=== PATIENT | female | born 1970 | race Caucasian/White ===

== ENCOUNTER 2016-12-22 22:17 | Emergency (ER) | payer BC ==
[2016-12-22 22:33] VITALS: BP 148/66
[2016-12-23] MEDS ORDERED: Clindamycin CAP* 150 MG PO ONE (00:10)
--- NOTE | 2016-12-23 00:14 | ED ---
Laura Licea Alok, scribed for Alfie Gonzalez MD on 12/23/16 at 0010 . Lower Extremity - HPI Summary HPI Summary: 46F presents to the ED for left leg swelling/redness. Pt states that what began as swelling a few days ago progressed to erythema today in her left leg. Pt also states her left leg is hot to touch and notes a fever on and off since 4 days ago. Pt denies edema or erythema of the right leg. Pt denies recent injury or cuts. - History of Current Complaint Chief Complaint: EDExtremityLower Stated Complaint: LEFT LEG SWELLING/WARM Time Seen by Provider: 12/23/16 00:00 Hx Obtained From: Patient Hx Last Menstrual Period: 1 WEEK AGO Mechanism Of Injury: Unknown Onset/Duration: Days Severity Initially: Moderate Severity Currently: Moderate Pain Intensity: 0 Pain Scale Used: 0-10 Numeric Timing: Constant Location: Is Discrete @ - left leg Associated Signs And Symptoms: Positive: Swelling, Redness Aggravating Factor(s): Nothing Alleviating Factor(s): Nothing - Allergies/Home Medications Allergies/Adverse Reactions: Allergies Allergy/AdvReac Type Severity Reaction Status Date / Time Ciprofloxacin [From Cipro] Allergy Severe Hives Verified 08/30/15 08:17 Nitrofurantoin Allergy Severe Hives Verified 08/30/15 08:17 [From Macrobid] Penicillins Allergy Severe Hives Verified 08/30/15 08:17 Sulfa Drugs Allergy Severe Hives Verified 08/30/15 08:17 Bumetanide AdvReac Hives Verified 12/22/16 22:34 Hydrochlorothiazide AdvReac Hives Verified 12/22/16 22:34 Fallon Bees Body oil Allergy Hives Uncoded 08/30/15 08:17 Cheer detergent Allergy Hives Uncoded 08/30/15 08:17 poison telma Allergy Hives Uncoded 08/30/15 08:17 ragweed Allergy Congestion Uncoded 08/30/15 08:17 PMH/Surg Hx/FS Hx/Imm Hx Endocrine/Hematology History: Reports: Hx Diabetes, Hx Thyroid Disease Cardiovascular History: Reports: Hx Hypertension Respiratory History: Reports: Hx Asthma - Cancer History Hx Chemotherapy: No Hx Radiation Therapy: No - Surgical History Surgery Procedure, Year, and Place: L shoulder stabilization '; ruptured ovarian cyst 1984. kidney stone lased and ureteral stent left sided '. lap maggie 1997. ex lap- 1984 Infectious Disease History: Yes Infectious Disease History: Reports: Hx of Known/Suspected MRSA - PCP office 2011 Denies: History Other Infectious Disease, Traveled Outside the [place] in Last 30 Days - Family History Known Family History: Positive: Diabetes - Social History Occupation: Employed Full-time Alcohol Use: None Substance Use Type: Reports: None Smoking Status (MU): Never Smoked Tobacco Review of Systems Positive: Fever Positive: Edema Positive: Rash All Other Systems Reviewed And Are Negative: Yes Physical Exam Triage Information Reviewed: Yes Vital Signs On Initial Exam: Initial Vitals Temp Pulse Resp BP Pulse Ox 98.4 F 85 18 148/66 96 12/22/16 22:31 12/22/16 22:31 12/22/16 22:31 12/22/16 22:31 12/22/16 22:31 Vital Signs Reviewed: Yes Appearance: Positive: Well-Appearing, No Pain Distress, Obese Skin: Positive: Warm, Other - warm erythemstous lle Head/Face: Positive: Normal Head/Face Inspection Eyes: Positive: TRUDY ENT: Positive: Hearing grossly normal Neck: Positive: Supple Respiratory/Lung Sounds: Positive: Breath Sounds Present Cardiovascular: Positive: RRR Musculoskeletal: Positive: Other - lle warm erythemsatous, no calf trnderness or celestine's Neurological: Positive: Sensory/Motor Intact, Normal Gait Psychiatric: Positive: Affect/Mood Appropriate Diagnostics - Vital Signs Vital Signs Temp Pulse Resp BP Pulse Ox 12/22/16 22:31 98.4 F 85 18 148/66 96 - Laboratory Lab Statement: Any lab studies that have been ordered have been reviewed, and results considered in the medical decision making process. - Additional Comments Diagnostic Additional Comments: Lower Extremity Vein US - IMPRESSION: No DVT Re-Evaluation - Re-Evaluation First Eval Comment: results d/w pt Lower Extremity Course/Dx - Diagnoses Provider Diagnoses: Cellulitis Discharge - Discharge Plan Condition: Stable Disposition: HOME Prescriptions: Clindamycin CAP* [Cleocin 150 MG CAP*] 300 mg PO Q6H #56 cap Patient Education Materials: Cellulitis (ED) Referrals: Anish Henriquez MD [Primary Care Provider] - The documentation as recorded by the Laura sanchez Alok accurately reflects the service I personally performed and the decisions made by me, Alfie Gonzalez MD.
--- NOTE | 2016-12-23 07:43 | RAD ---
HISTORY: Left foot pain and swelling TECHNIQUE: Multiple transverse and longitudinal ultrasound images were obtained of the veins of the left lower extremity using grayscale, color Doppler, and spectral Doppler imaging with and without compression and with augmentation. FINDINGS: VEINS: The common femoral vein, deep femoral vein, femoral vein and popliteal vein are compressible throughout their course, with normal flow on color Doppler imaging and normal response to augmentation on spectral Doppler imaging. SOFT TISSUES: Grossly normal. No large popliteal fossa cyst was identified. IMPRESSION: No sonographic evidence of deep vein thrombosis.
== END 2016-12-23 00:39 | disposition home or self-care (01) ==
LOC: ED 22:17
DX: L03.90 Cellulitis, unspecified (principal); R60.9 Edema, unspecified; R50.9 Fever, unspecified; R21 Rash and other nonspecific skin eruption
CPT/HCPCS: 99282; A9270-GY

== ENCOUNTER 2017-01-02 12:52 | Emergency (ER) | payer BC ==
[2017-01-02 13:10] VITALS: BP 142/58
--- NOTE | 2017-01-02 13:23 | UC ---
Headache HPI - HPI Summary HPI Summary: Patient states "i have to worse headache of my life" "I have never had a headache this long or this bad" Began behind left eye is not behind both eyes, notices some tingling in the right side if her face, neck and shoulder-- reports nausea, night stiffness and photophobia---no fevers chills or night sweats - History Of Current Complaint Chief Complaint: UCHeadache Stated Complaint: HEADACHE Time Seen by Provider: 01/02/17 13:05 Hx Obtained From: Patient Hx Last Menstrual Period: 12/18/16 ?: No Onset/Duration: Gradual Onset, Lasting Days - 3, Still Present Onset Of Symptoms: Sudden, Still Present Initially Headache Was: "Worst Headache Ever", Initial Pain Scale(0-10)= - 10 Currently Pain Is: Current Pain Scale(0-10)= - 4 after taking a percocet and 600 of Ibuprofen Pain Scale Used: 0-10 Numeric Timing: Constant Character: Throbbing, Pressure Location of Headache: Diffuse, Frontal Aggravating Factor: Nothing Allevating Factors: Nothing Associated Signs And Symptoms: Positive: Nausea, Neck Pain, Other (Noted In Comments) - photophobia - Allergies/Home Medications Allergies/Adverse Reactions: Allergies Allergy/AdvReac Type Severity Reaction Status Date / Time Ciprofloxacin [From Cipro] Allergy Severe Hives Verified 08/30/15 08:17 Nitrofurantoin Allergy Severe Hives Verified 08/30/15 08:17 [From Macrobid] Penicillins Allergy Severe Hives Verified 08/30/15 08:17 Sulfa Drugs Allergy Severe Hives Verified 08/30/15 08:17 Bumetanide AdvReac Hives Verified 12/22/16 22:34 Hydrochlorothiazide AdvReac Hives Verified 12/22/16 22:34 Fallon Bees Body oil Allergy Hives Uncoded 08/30/15 08:17 Cheer detergent Allergy Hives Uncoded 08/30/15 08:17 poison telma Allergy Hives Uncoded 08/30/15 08:17 ragweed Allergy Congestion Uncoded 08/30/15 08:17 Home Medications: Home Medications Ibuprofen TAB* [Motrin TAB* 600 MG] 01/02/17 [History] Oxycodone W/ Acetaminophen [Percocet 7.5-325 mg (NF)] 0.5 tab 01/02/17 [History] PMH/Surg Hx/FS Hx/Imm Hx Previously Healthy: No Endocrine History: Diabetes Cardiovascular History: Hypertension Psychological History: Anxiety, Depression - Surgical History Surgical History: Yes Surgery Procedure, Year, and Place: L shoulder stabilization ; ruptured ovarian cyst 1984. kidney stone lased and ureteral stent left sided '. lap maggie 1997. ex lap- 1984 - Family History Known Family History: Positive: Diabetes - Social History Occupation: Employed Full-time Lives: With Family Alcohol Use: None Substance Use Type: None Smoking Status (MU): Never Smoked Tobacco - Immunization History Vaccination Up to Date: Yes Review of Systems Constitutional: Negative Skin: Negative Eyes: Negative ENT: Negative Respiratory: Negative Cardiovascular: Negative Gastrointestinal: Negative Genitourinary: Negative Motor: Negative Neurovascular: Negative Musculoskeletal: Arthralgia - neck stiffness Neurological: Headache Psychological: Negative All Other Systems Reviewed And Are Negative: Yes Physical Exam Triage Information Reviewed: Yes Appearance: Ill-Appearing, Pain Distress, Obese Vital Signs: Initial Vital Signs Temp 98.8 F 01/02/17 13:04 Pulse 79 01/02/17 13:04 Resp 16 01/02/17 13:04 BP 142/58 01/02/17 13:04 Pulse Ox 100 01/02/17 13:04 Vital Signs Reviewed: Yes Eye Exam: Normal Eyes: Positive: Conjunctiva Clear ENT Exam: Normal ENT: Positive: Normal ENT inspection, Hearing grossly normal. Negative: Nasal congestion, Nasal drainage, Trismus, Muffled/hoarse voice Dental Exam: Normal Neck exam: Normal Neck: Positive: Supple Respiratory Exam: Normal Respiratory: Positive: No respiratory distress, No accessory muscle use Cardiovascular Exam: Normal Cardiovascular: Positive: RRR, Pulses Normal, Brisk Capillary Refill Musculoskeletal Exam: Normal Musculoskeletal: Positive: Strength Intact, ROM Intact Neurological Exam: Normal Neurological: Positive: Alert Psychological Exam: Normal Skin Exam: Normal Headache Course/Dx - Course Course Of Treatment: transfer to ED --patient refused ambulance -neda AREVALO signed--- - Differential Dx/Diagnosis Differential Diagnosis/HQI/PQRI: Meningitis, Migraine, Subarachnoid Hemorrhage, Temporal Arteritis, Tension Headache, Viral Syndrome Provider Diagnoses: Worst headache ever Discharge - Discharge Plan Condition: Guarded Disposition: AGAINST MEDICAL ADVICE
== END 2017-01-02 13:20 | disposition left against medical advice (07) ==
LOC: UCEAST 12:52
DX: R51 Headache (principal); R11.0 Nausea; M54.2 Cervicalgia; H53.149 Visual discomfort, unspecified; E11.9 Type 2 diabetes mellitus without complications; I10 Essential (primary) hypertension; F32.9 Major depressive disorder, single episode, unspecified; F41.9 Anxiety disorder, unspecified; E66.9 Obesity, unspecified; Z88.1 Allergy status to other antibiotic agents; Z88.0 Allergy status to penicillin; Z88.2 Allergy status to sulfonamides
CPT/HCPCS: 99212; G0463

== ENCOUNTER 2017-01-02 13:57 | Emergency (ER) | payer BC ==
[2017-01-02 15:43] LABS: Hematocrit 34 % (35-47); Hemoglobin 11.1 g/dl (12.0-16.0); Mean Corpuscular HGB Conc 32 g/dl (31-36); Mean Corpuscular Hemoglobin 30 pg (27-31); Mean Corpuscular Volume 93 fL (80-97); Mean Platelet Volume 9 um3 (7.4-10.4); Red Cell Distribution Width 14 % (10.5-15); White Blood Count 12.3 10^3/ul (3.5-10.8)
[2017-01-02 16:17] LABS: Albumin 4.1 g/dL (3.2-5.2); BUN/Creatinine Ratio 25.6 (8-20); Calcium 9.3 mg/dL (8.6-10.3); EGFR Non-African American 75.4 (>60); Globulin 3.6 g/dL (2-4); Potassium 4.6 mmol/L (3.5-5.0); Total Bilirubin 0.3 mg/dL (0.2-1.0); Total Protein 7.7 g/dL (6.4-8.9)
--- NOTE | 2017-01-02 16:42 | RAD ---
INDICATION: Severe headache COMPARISON: None. TECHNIQUE: Contiguous axial sections of the brain were obtained from the skull base to the vertex without contrast. FINDINGS: The ventricles, cisterns and sulci are within normal limits. The mary-white matter differentiation is adequately maintained and there is no sulcal effacement. No significant focal abnormality or mass effect is present. There is no evidence for intracranial hemorrhage. No significant focal osseous abnormality is present. The visualized portion of the paranasal sinuses and mastoid air cells appear clear. IMPRESSION: Normal CT of the brain.
[2017-01-02 20:00] VITALS: BP 133/48
[2017-01-02 20:29] LABS: Urine Bacteria 1+ (Absent); Urine Bilirubin Negative (Negative); Urine Glucose Negative (Negative); Urine Nitrite Positive (Negative)
--- NOTE | 2017-01-02 20:59 | ED ---
Headache - HPI Summary HPI Summary: 46 y/o female with h/a "worse in life" since , waxes and wanes, better in AM , worse in PM, better after eating soup today, pain 2/10, currently pain 4/10. h/o tension has in past, "but thsi HEART is different". Patient states headache "Worst in life" but does not have many headaches in past. headache began as mild, progressively worsening throughout day. Patient went to work each day and was functioning well, however at end of day when returning home was more severe to where patient would lie in bed in pain. Headache improved after sleeping each day and was mild to moderate upon waking in AM. Patient woudl like medication to ronal headache, however will be driving home this evening. no vomiting, vision changes. + ambulatory without difficulty. WOrse with sneezing/ coughing. No recent URI/ sinus pressure. no ear pain. Also c/o cellulitis L foot which she was on abx for last week, stopped weds AM and states redness hasn't decreased and LE still feels warm. - History Of Current Complaint Chief Complaint: EDHeadache Stated Complaint: HEADACHE X4DAYS Time Seen by Provider: 01/02/17 20:26 Hx Last Menstrual Period: 12/18/16 - Allergies/Home Medications Allergies/Adverse Reactions: Allergies Allergy/AdvReac Type Severity Reaction Status Date / Time Ciprofloxacin [From Cipro] Allergy Severe Hives Verified 08/30/15 08:17 Nitrofurantoin Allergy Severe Hives Verified 08/30/15 08:17 [From Macrobid] Penicillins Allergy Severe Hives Verified 08/30/15 08:17 Sulfa Drugs Allergy Severe Hives Verified 08/30/15 08:17 Bumetanide AdvReac Hives Verified 12/22/16 22:34 Hydrochlorothiazide AdvReac Hives Verified 12/22/16 22:34 Fallon Bees Body oil Allergy Hives Uncoded 08/30/15 08:17 Cheer detergent Allergy Hives Uncoded 08/30/15 08:17 poison telma Allergy Hives Uncoded 08/30/15 08:17 ragweed Allergy Congestion Uncoded 08/30/15 08:17 PMH/Surg Hx/FS Hx/Imm Hx Previously Healthy: No Endocrine/Hematology History: Reports: Hx Diabetes, Hx Thyroid Disease Cardiovascular History: Reports: Hx Hypertension Respiratory History: Reports: Hx Asthma - Cancer History Hx Chemotherapy: No Hx Radiation Therapy: No - Surgical History Surgery Procedure, Year, and Place: L shoulder stabilization ; ruptured ovarian cyst 1984. kidney stone lased and ureteral stent left sided . lap maggie 1997. ex lap- 1984 Infectious Disease History: Reports: Hx of Known/Suspected MRSA - PCP office 2012 Denies: History Other Infectious Disease, Traveled Outside the [place] in Last 30 Days - Family History Known Family History: Positive: Diabetes - Social History Alcohol Use: None Substance Use Type: Reports: None Smoking Status (MU): Never Smoked Tobacco Review of Systems Positive: Fatigue Positive: Edema Positive: Rash Positive: Headache All Other Systems Reviewed And Are Negative: Yes Physical Exam - Summary Physical Exam Summary: figner to nose neg, no nuchal rigditiy, normal neurological examination Triage Information Reviewed: Yes Vital Signs On Initial Exam: Initial Vitals Temp Pulse Resp BP Pulse Ox 99.2 F 86 20 140/62 97 01/02/17 15:00 01/02/17 15:00 01/02/17 15:00 01/02/17 15:00 01/02/17 15:00 Vital Signs Reviewed: Yes Appearance: Positive: Well-Appearing, Well-Nourished, Pain Distress - mild, Obese - morbid Skin: Positive: Warm, Skin Color Reflects Adequate Perfusion Head/Face: Positive: Normal Head/Face Inspection, Other - no mastoid tenderness, Eyes: Positive: EOMI, TRUDY, Conjunctiva Clear ENT: Positive: Hearing grossly normal, TM dull - fluid levels b/l, TM red - minimal Neck: Positive: Supple, No Lymphadenopathy, Other: - mild tenderness with moderate palpation over paraspinal muscles b/l, trap muscles. full ROM without difficulty Respiratory/Lung Sounds: Positive: Clear to Auscultation, Breath Sounds Present Cardiovascular: Positive: Normal, RRR, Pulses are Symmetrical in both Upper and Lower Extremities, S1, S2 Musculoskeletal: Positive: Other - neg celestine b/l Neurological: Positive: Normal, Sensory/Motor Intact, Alert, Oriented to Person Place, Time, CN Intact II-III, Normal Gait, Facial Symmetry, Speech Normal Psychiatric: Positive: Normal AVPU Assessment: Alert - Zane Coma Scale Best Eye Response: 4 - Spontaneous Best Motor Response: 6 - Obeys Commands Best Verbal Response: 5 - Oriented Diagnostics - Vital Signs Vital Signs Temp Pulse Resp BP Pulse Ox 01/02/17 19:30 98 F 72 16 133/48 99 01/02/17 17:30 98.8 F 76 16 149/53 100 01/02/17 15:00 99.2 F 86 20 140/62 97 - Laboratory Lab Results: Lab Results 01/02/17 01/02/17 01/02/17 Range/Units 15:34 15:34 15:34 WBC 12.3 H (3.5-10.8) 10^3/ul RBC 3.70 L (4.0-5.4) 10^6/ul Hgb 11.1 L (12.0-16.0) g/dl Hct 34 L (35-47) % MCV 93 (80-97) fL MCH 30 (27-31) pg MCHC 32 (31-36) g/dl RDW 14 (10.5-15) % Plt Count 299 (150-450) 10^3/ul MPV 9 (7.4-10.4) um3 Neut % (Auto) 73.4 (38-83) % Lymph % (Auto) 15.7 L (25-47) % Lee % (Auto) 7.8 (1-9) % Eos % (Auto) 1.7 (0-6) % Baso % (Auto) 1.4 (0-2) % Absolute Neuts (auto) 9.0 H (1.5-7.7) 10^3/ul Absolute Lymphs (auto) 1.9 (1.0-4.8) 10^3/ul Absolute Monos (auto) 1.0 H (0-0.8) 10^3/ul Absolute Eos (auto) 0.2 (0-0.6) 10^3/ul Absolute Basos (auto) 0.2 (0-0.2) 10^3/ul Absolute Nucleated RBC 0 10^3/ul Nucleated RBC % 0 INR (Anticoag Therapy) 0.99 (0.89-1.11) APTT 32.3 (26.0-36.3) seconds Sodium 134 (133-145) mmol/L Potassium 4.6 (3.5-5.0) mmol/L Chloride 101 (101-111) mmol/L Carbon Dioxide 25 (22-32) mmol/L Anion Gap 8 (2-11) mmol/L BUN 21 (6-24) mg/dL Creatinine 0.82 (0.51-0.95) mg/dL Est GFR ( Amer) 97.0 (>60) Est GFR (Non-Af Amer) 75.4 (>60) BUN/Creatinine Ratio 25.6 H (8-20) Glucose 102 H (70-100) mg/dL Lactic Acid (0.5-2.0) mmol/L Calcium 9.3 (8.6-10.3) mg/dL Total Bilirubin 0.30 (0.2-1.0) mg/dL AST 34 (13-39) U/L ALT 33 (7-52) U/L Alkaline Phosphatase 94 (34-104) U/L Total Protein 7.7 (6.4-8.9) g/dL Albumin 4.1 (3.2-5.2) g/dL Globulin 3.6 (2-4) g/dL Albumin/Globulin Ratio 1.1 (1-3) Urine Color Urine Appearance Urine pH (5-9) Ur Specific Ramer (1.010-1.030) Urine Protein (Negative) Urine Ketones (Negative) Urine Blood (Negative) Urine Nitrate (Negative) Urine Bilirubin (Negative) Urine Urobilinogen (Negative) Ur Leukocyte Esterase (Negative) Urine WBC (Auto) (Absent) Urine RBC (Auto) (Absent) Ur Squamous Epith Cells (Absent) Urine Bacteria (Absent) Hyaline Casts (Absent) Urine Glucose (Negative) 01/02/17 01/02/17 Range/Units 15:34 20:10 WBC (3.5-10.8) 10^3/ul RBC (4.0-5.4) 10^6/ul Hgb (12.0-16.0) g/dl Hct (35-47) % MCV (80-97) fL MCH (27-31) pg MCHC (31-36) g/dl RDW (10.5-15) % Plt Count (150-450) 10^3/ul MPV (7.4-10.4) um3 Neut % (Auto) (38-83) % Lymph % (Auto) (25-47) % Lee % (Auto) (1-9) % Eos % (Auto) (0-6) % Baso % (Auto) (0-2) % Absolute Neuts (auto) (1.5-7.7) 10^3/ul Absolute Lymphs (auto) (1.0-4.8) 10^3/ul Absolute Monos (auto) (0-0.8) 10^3/ul Absolute Eos (auto) (0-0.6) 10^3/ul Absolute Basos (auto) (0-0.2) 10^3/ul Absolute Nucleated RBC 10^3/ul Nucleated RBC % INR (Anticoag Therapy) (0.89-1.11) APTT (26.0-36.3) seconds Sodium (133-145) mmol/L Potassium (3.5-5.0) mmol/L Chloride (101-111) mmol/L Carbon Dioxide (22-32) mmol/L Anion Gap (2-11) mmol/L BUN (6-24) mg/dL Creatinine (0.51-0.95) mg/dL Est GFR ( Amer) (>60) Est GFR (Non-Af Amer) (>60) BUN/Creatinine Ratio (8-20) Glucose (70-100) mg/dL Lactic Acid 1.2 (0.5-2.0) mmol/L Calcium (8.6-10.3) mg/dL Total Bilirubin (0.2-1.0) mg/dL AST (13-39) U/L ALT (7-52) U/L Alkaline Phosphatase (34-104) U/L Total Protein (6.4-8.9) g/dL Albumin (3.2-5.2) g/dL Globulin (2-4) g/dL Albumin/Globulin Ratio (1-3) Urine Color Yellow Urine Appearance Clear Urine pH 5.0 (5-9) Ur Specific Ramer 1.016 (1.010-1.030) Urine Protein Negative (Negative) Urine Ketones Negative (Negative) Urine Blood 3+ H (Negative) Urine Nitrate Positive H (Negative) Urine Bilirubin Negative (Negative) Urine Urobilinogen Negative (Negative) Ur Leukocyte Esterase Negative (Negative) Urine WBC (Auto) Trace(0-5/hpf) (Absent) Urine RBC (Auto) 1+(3-5/hpf) H (Absent) Ur Squamous Epith Cells Present H (Absent) Urine Bacteria 1+ H (Absent) Hyaline Casts Present H (Absent) Urine Glucose Negative (Negative) Result Diagrams: 01/02/17 15:34 01/02/17 15:34 Lab Statement: Any lab studies that have been ordered have been reviewed, and results considered in the medical decision making process. Headache Course/Dx - Course Course Of Treatment: patient discussed with Dr. Amezcua, Discussed with patient elevated WBC, HEART is concern for meningitis, brain bleeding, dx would be LP. Patient stated would perform if high suspicion however does not want to do to rule out, will continue to monitor symptoms. d/t driving home unable to give pain medications, benadryl. Current pain level 4/10. Patient has percocet at home, states did decreased HEART. Pain medication given, f/u with PCP, return if symptoms worsen. clindamycin given for cellulits as patient has h/o MRSA and multiple ABX allergies. F/U with PCP on Thursday. - Diagnoses Differential Diagnosis/HQI/PQRI: CVA, Subdural Hematoma, Meningitis, Migraine, Sinus Headache, Subarachnoid Hemorrhage, Temporal Arteritis, Tension Headache, Viral Syndrome Provider Diagnoses: Headache, acute, Cellulitis of left leg without foot Discharge - Discharge Plan Condition: Stable Disposition: HOME Prescriptions: Clindamycin HCl [Clindamycin 150 MG CAP*] 300 mg PO QID #40 cap Fluconazole 150 MG (NF) [Diflucan 150 mg (NF)] 150 mg PO ONCE #1 tab oxyCODONE/Acetamin 5/325 MG* [Percocet 5/325 TAB*] 1 tab PO Q4H PRN #15 tab MDD 6 PRN Reason: Pain Patient Education Materials: Acute Headache (ED) Referrals: Anish Henriquez MD [Primary Care Provider] - Additional Instructions: - tylenol/ motrin as neeed for pain - Reutrn with worsening symptoms, increased pain, shortness of breath, lightheadedness - Percocet for severe pain - FOllow up with Dr. Henriquez on Thursday - Clindamycin for cellulitis as directed
[2017-01-02] MEDS ORDERED: Ketorolac INJ* 30 MG/ML 1 ML VIAL IM ONE (21:05)
[2017-01-02] MEDS ORDERED: oxyCODONE/Acetamin 5/325 MG* TAB PO ONE (21:18)
[2017-01-02] MEDS ORDERED: Clindamycin CAP* 150 MG PO ONE ×2 (21:19→21:20)
--- NOTE | 2017-01-04 09:34 | PN ---
Progress Note - Progress Note Date of Service: 01/01/17 Note: Urine culture preliminary hows colony of E. Coli in urine. >100,000. d/t multiple allergies and patient currently taking Clindamycin (which will not cover gram negative bacilli), will await sensitives prior to choosing correct abx regimen. Nothing further at this time. Ana Maria Mariee PA-C
== END 2017-01-02 21:39 | disposition home or self-care (01) ==
LOC: ED 13:57
DX: L03.116 Cellulitis of left lower limb (principal); R51 Headache; R53.83 Other fatigue; R21 Rash and other nonspecific skin eruption
CPT/HCPCS: 36415; 70450; 80053; 81003; 81015; 83605; 85025; 85610; 85730; 87040; 87077; 87086; 87186; 99283; A9270-GY

== ENCOUNTER 2017-01-04 17:33 | Inpatient (IN) | payer BC ==
[2017-01-04] MEDS ORDERED: NS 0.9% 1000 ML* 1,000 ML IV ONE (17:43)
[2017-01-04] MEDS ORDERED: HYDROmorphone* 1 MG/ML 1 ML SYR IV SLOW PU ONE ×3 (18:14→21:06)
[2017-01-04] MEDS ORDERED: Ondansetron INJ* 2 MG/ML VIAL IV ONE (18:14)
[2017-01-04 18:30] LABS: Hematocrit 34 % (35-47); Hemoglobin 11.2 g/dl (12.0-16.0); Mean Corpuscular HGB Conc 33 g/dl (31-36); Mean Corpuscular Hemoglobin 30 pg (27-31); Mean Corpuscular Volume 91 fL (80-97); Mean Platelet Volume 9 um3 (7.4-10.4); Red Blood Count 3.73 10^6/ul (4.0-5.4); Red Cell Distribution Width 14 % (10.5-15); White Blood Count 9.3 10^3/ul (3.5-10.8)
[2017-01-04 18:44] LABS: Albumin 3.9 g/dL (3.2-5.2); BUN/Creatinine Ratio 21.2 (8-20); Calcium 9.2 mg/dL (8.6-10.3); EGFR Non-African American 72.3 (>60); Globulin 3.6 g/dL (2-4); Total Bilirubin 0.4 mg/dL (0.2-1.0); Total Protein 7.5 g/dL (6.4-8.9)
[2017-01-04 19:22] LABS: Erythrocyte Sed Rate 87 mm/Hr (0-14)
--- NOTE | 2017-01-04 21:18 | ED ---
Don Licea SooYoung, scribed for Luisa Amezcua MD on 01/04/17 at 1748 . Headache - HPI Summary HPI Summary: A 46 y/o F presents to ED with c/o fluctuating, diffuse HEART onset five days around [id number]. Pain started behind L eye but is now everywhere. Denies visual changes/auras, no blurry vision, no slurred speech, denies fever and chills. Rates pain as 7 out of 10 currently in ED. She took Tylenol and Advil to no relief, and took Percocet two days ago to mild relief. Two days ago she was seen in ED for similar sx, CT was negative, dx: acute HEART. Pt also had recent cellulitis and was treated with Clindamycin. She also received a dose of Clindamycin two days ago which cause n/v/d. She believes the ABX has made her HEART worse. She has also had recent weight loss. PCP is Dr. Henriquez. - History Of Current Complaint Chief Complaint: EDHeadache Stated Complaint: HEADACHE, V/D, HARD TIME GETTING OUT OF BED Time Seen by Provider: 01/04/17 17:40 Hx Obtained From: Patient Hx Last Menstrual Period: 12/18/16 Onset/Duration: Started days ago - 5 days ago, Still Present Currently Pain Is: Current Pain Scale(0-10)= - 7 Timing: Constant - but fluctuating intensity Location of Headache: Diffuse Associated Signs And Symptoms: Other (Noted In Comments) - see HPI - Allergies/Home Medications Allergies/Adverse Reactions: Allergies Allergy/AdvReac Type Severity Reaction Status Date / Time Ciprofloxacin [From Cipro] Allergy Severe Hives Verified 08/30/15 08:17 Nitrofurantoin Allergy Severe Hives Verified 08/30/15 08:17 [From Macrobid] Penicillins Allergy Severe Hives Verified 08/30/15 08:17 Sulfa Drugs Allergy Severe Hives Verified 08/30/15 08:17 Bumetanide AdvReac Hives Verified 12/22/16 22:34 Hydrochlorothiazide AdvReac Hives Verified 12/22/16 22:34 Fallon Bees Body oil Allergy Hives Uncoded 08/30/15 08:17 Cheer detergent Allergy Hives Uncoded 08/30/15 08:17 poison telma Allergy Hives Uncoded 08/30/15 08:17 ragweed Allergy Congestion Uncoded 08/30/15 08:17 PMH/Surg Hx/FS Hx/Imm Hx Previously Healthy: No Endocrine/Hematology History: Reports: Hx Diabetes, Hx Thyroid Disease Cardiovascular History: Reports: Hx Hypertension Respiratory History: Reports: Hx Asthma History: Reports: Hx Kidney Stones - Cancer History Hx Chemotherapy: No Hx Radiation Therapy: No - Surgical History Surgery Procedure, Year, and Place: L shoulder stabilization ; ruptured ovarian cyst 1984. kidney stone lased and ureteral stent left sided '. lap maggie 1997. ex lap- 1984 Infectious Disease History: Reports: Hx of Known/Suspected MRSA - PCP office 2011 Denies: History Other Infectious Disease, Traveled Outside the [place] in Last 30 Days - Family History Known Family History: Positive: Hypertension, Diabetes, Other - mother - ocular migraines - Social History Occupation: Employed Full-time Lives: Alone Alcohol Use: None Hx Substance Use: No Substance Use Type: Reports: None Hx Tobacco Use: No Smoking Status (MU): Never Smoked Tobacco Review of Systems Negative: Fever, Chills Positive: Other - neg: vision changes. Negative: Blurred Vision Positive: Headache. Negative: Slurred Speech All Other Systems Reviewed And Are Negative: Yes Physical Exam Triage Information Reviewed: Yes Vital Signs On Initial Exam: Initial Vitals Temp Pulse Resp BP Pulse Ox 98.9 F 89 20 143/52 96 01/04/17 17:35 01/04/17 17:35 01/04/17 17:35 01/04/17 17:35 01/04/17 17:35 Vital Signs Reviewed: Yes Appearance: Positive: Well-Appearing, No Pain Distress Skin: Positive: Warm, Skin Color Reflects Adequate Perfusion, Dry Eyes: Positive: EOMI, TRUDY ENT: Positive: Pharynx normal, TMs normal Neck: Positive: Supple, Nontender Respiratory/Lung Sounds: Positive: Clear to Auscultation, Breath Sounds Present. Negative: Rales, Rhonchi, Wheezes Cardiovascular: Positive: RRR. Negative: Murmur, Rub, Other - neg: gallop Abdomen Description: Positive: Nontender, Soft. Negative: Distended, Guarding, Other: - neg: rebounding Bowel Sounds: Positive: Present Musculoskeletal: Positive: Strength/ROM Intact. Negative: Edema Left, Edema Right Neurological: Positive: Sensory/Motor Intact, Alert, Oriented to Person Place, Time, CN Intact II-III Psychiatric: Positive: Affect/Mood Appropriate Procedures - Lumbar Puncture Position: Sitting Anesthesia Used: 0.25% Marcaine Spinal Needle Used: 22 Gauge Lumbar Puncture Note: fluid was clear opening pressure sitting was 50 Diagnostics - Vital Signs Vital Signs Temp Pulse Resp BP Pulse Ox 01/04/17 17:35 98.9 F 89 20 143/52 96 - Laboratory Lab Results: Lab Results 01/04/17 01/04/17 01/04/17 Range/Units 18:11 18:11 19:35 WBC 9.3 (3.5-10.8) 10^3/ul RBC 3.73 L (4.0-5.4) 10^6/ul Hgb 11.2 L (12.0-16.0) g/dl Hct 34 L (35-47) % MCV 91 (80-97) fL MCH 30 (27-31) pg MCHC 33 (31-36) g/dl RDW 14 (10.5-15) % Plt Count 306 (150-450) 10^3/ul MPV 9 (7.4-10.4) um3 Neut % (Auto) 69.8 (38-83) % Lymph % (Auto) 16.5 L (25-47) % [place] % (Auto) 10.3 H (1-9) % Eos % (Auto) 2.2 (0-6) % Baso % (Auto) 1.2 (0-2) % Absolute Neuts (auto) 6.5 (1.5-7.7) 10^3/ul Absolute Lymphs (auto) 1.5 (1.0-4.8) 10^3/ul Absolute Monos (auto) 1.0 H (0-0.8) 10^3/ul Absolute Eos (auto) 0.2 (0-0.6) 10^3/ul Absolute Basos (auto) 0.1 (0-0.2) 10^3/ul Absolute Nucleated RBC 0 10^3/ul Nucleated RBC % 0 ESR 87 H (0-14) mm/Hr Carbon Monoxide Screen <3.5 (<3.5) % Sodium 136 (133-145) mmol/L Potassium 4.0 (3.5-5.0) mmol/L Chloride 102 (101-111) mmol/L Carbon Dioxide 25 (22-32) mmol/L Anion Gap 9 (2-11) mmol/L BUN 18 (6-24) mg/dL Creatinine 0.85 (0.51-0.95) mg/dL Est GFR ( Amer) 93.0 (>60) Est GFR (Non-Af Amer) 72.3 (>60) BUN/Creatinine Ratio 21.2 H (8-20) Glucose 200 H (70-100) mg/dL Lactic Acid (0.5-2.0) mmol/L Calcium 9.2 (8.6-10.3) mg/dL Total Bilirubin 0.40 (0.2-1.0) mg/dL AST 37 (13-39) U/L ALT 36 (7-52) U/L Alkaline Phosphatase 88 (34-104) U/L Total Protein 7.5 (6.4-8.9) g/dL Albumin 3.9 (3.2-5.2) g/dL Globulin 3.6 (2-4) g/dL Albumin/Globulin Ratio 1.1 (1-3) // Range/Units 19:35 WBC (3.5-10.8) 10^3/ul RBC (4.0-5.4) 10^6/ul Hgb (12.0-16.0) g/dl Hct (35-47) % MCV (80-97) fL MCH (27-31) pg MCHC (31-36) g/dl RDW (10.5-15) % Plt Count (150-450) 10^3/ul MPV (7.4-10.4) um3 Neut % (Auto) (38-83) % Lymph % (Auto) (25-47) % [place] % (Auto) (1-9) % Eos % (Auto) (0-6) % Baso % (Auto) (0-2) % Absolute Neuts (auto) (1.5-7.7) 10^3/ul Absolute Lymphs (auto) (1.0-4.8) 10^3/ul Absolute Monos (auto) (0-0.8) 10^3/ul Absolute Eos (auto) (0-0.6) 10^3/ul Absolute Basos (auto) (0-0.2) 10^3/ul Absolute Nucleated RBC 10^3/ul Nucleated RBC % ESR (0-14) mm/Hr Carbon Monoxide Screen (<3.5) % Sodium (133-145) mmol/L Potassium (3.5-5.0) mmol/L Chloride (101-111) mmol/L Carbon Dioxide (22-32) mmol/L Anion Gap (2-11) mmol/L BUN (6-24) mg/dL Creatinine (0.51-0.95) mg/dL Est GFR ( Amer) (>60) Est GFR (Non-Af Amer) (>60) BUN/Creatinine Ratio (8-20) Glucose (70-100) mg/dL Lactic Acid 1.0 (0.5-2.0) mmol/L Calcium (8.6-10.3) mg/dL Total Bilirubin (0.2-1.0) mg/dL AST (13-39) U/L ALT (7-52) U/L Alkaline Phosphatase (34-104) U/L Total Protein (6.4-8.9) g/dL Albumin (3.2-5.2) g/dL Globulin (2-4) g/dL Albumin/Globulin Ratio (1-3) Result Diagrams: 01/04/17 18:11 01/04/17 18:11 Lab Statement: Any lab studies that have been ordered have been reviewed, and results considered in the medical decision making process. Re-Evaluation - Re-Evaluation 1 Re-Evaluation Time: 19:26 Change: Improved Comment: Discussing results with pt. Headache Course/Dx - Course Course Of Treatment: 46 yo female with headache since thursday LP done today with sitting pressures at 70 (pt felt she was unable to do a lying down pressure ) csf is being analyzed now. Case discussed with Dr. Byers who suggested a CT venogram since the opening pressure was not done lying down and to look for other causes of the elevated pressure. Pt has received 3 doses of pain meds and the case will be discussed with Dr. Munoz for admission for possible pseudotumor cerebri - Diagnoses Provider Diagnoses: Headache - Physician Notifications Discussed Care Of Patient With: Yvette Byers - neuro Time Discussed With Above Provider: 18:55 Instructed by Provider To: Other - Recommends LP Discharge - Discharge Plan Condition: Stable Disposition: ADMITTED TO [facility] Referrals: Midura,Anish T, MD [Primary Care Provider] - The documentation as recorded by the Don sanchez SooYoung accurately reflects the service I personally performed and the decisions made by me, Luisa Amezcua MD.
[2017-01-04] MEDS ORDERED: Iodixanol* (CONTRAST) 320 MG/ML 100 ML SDV IV ONE (21:23)
[2017-01-04 21:49] LABS: CSF Glucose 99 mg/dL (40-70)
--- NOTE | 2017-01-04 21:51 | PN ---
I, Deysi Ochoa, scribed for Luisa Amezcua MD on 01/04/17 at 2148 . Progress Note - Progress Note Date of Service: 01/04/17 Note: 2144 Upon further discussion, pt prefers to go home rather than be admitted. Ordered CTA. Pt is likely to be d/c home if CTA imaging is nml. Pt SO to Dr. Gonzalez at shift change, pending CTA results and LP results She is now feeling a bit better after the LP The documentation as recorded by the abigailibDon wilhelm SooYoung accurately reflects the service I personally performed and the decisions made by me, Luisa Amezcua MD.
[2017-01-04 21:54] LABS: Body Fluid Appearance Clear
[2017-01-04 21:55] LABS: BF RBC Count #1 4; BF RBC Count #2 5; BF WBC Count #1 147; BF WBC Count #2 161; RBC counts within 6%? Yes; WBC counts within 15%? Yes
[2017-01-04 22:02] LABS: Body Fluid WBC 171 /mcL
[2017-01-04 22:12] LABS: Body Fluid Total Cells Counted 100
[2017-01-04] MEDS ORDERED: HYDROmorphone* 1 MG/ML 1 ML SYR IV ONE (22:30)
[2017-01-04] MEDS ORDERED: ACYCLOVIR IVPB SCH (23:00)
[2017-01-04] MEDS ORDERED: NS 0.9% IVPB ONE (23:00)
[2017-01-04] MEDS ORDERED: ACYCLOVIR IVPB ONE (23:00)
[2017-01-04] MEDS ORDERED: NS 0.9% IVPB SCH (23:00)
[2017-01-05] MEDS ORDERED: Ibuprofen TAB* 200 MG PO PRN (00:47)
[2017-01-05] MEDS ORDERED: Albuterol HFA INHALER* 8 gm MDI INH PRN (00:47)
[2017-01-05] MEDS: HYDROmorphone* 1 MG/ML 1 ML SYR IV SLOW PU PRN ×9 (01:00→21:04)
[2017-01-05] MEDS ORDERED: Acetaminophen TAB* 325 MG PO PRN (01:04)
[2017-01-05] MEDS ORDERED: Dextrose 50% Syringe 50 ML* 25 GM/50 ML SYRINGE IV PUSH PRN (01:07)
[2017-01-05] MEDS: Ketorolac INJ* 15 MG/ML 1 ML VIAL IV PUSH PRN (01:48)
[2017-01-05] MEDS: LORazepam TAB(*) 0.5 MG PO PRN (05:05)
[2017-01-05] MEDS: Heparin VIAL(*) 5000 UNITS/ML VIAL (FIVE THOUSAND) SUBCUT SCH ×3 (05:30→20:39)
[2017-01-05] MEDS: HYDROcodone/ACET. 7.5/325 LIQ* 15 ML UDC PO SCH ×3 (05:34→18:01)
[2017-01-05] MEDS: Levothyroxine TAB* 150 MCG TAB PO SCH (05:41)
--- NOTE | 2017-01-05 07:38 | RAD ---
HISTORY: Pseudotumor cerebri, headache COMPARISONS: Head CT dated January 02, 2017 TECHNIQUE: Multiple contiguous axial CT scans were obtained of the head both before and after the administration of nonionic intravenous contrast timed to the venous phase of contrast enhancement. Coronal and sagittal multiplanar reformations are submitted for review. Multiple 3-D maximum intensity projection reconstructions are also submitted for review. FINDINGS: VENOUS CIRCULATION: The venous sinuses are patent without thrombosis or occlusion. The internal cerebral veins are codominant with the basal veins of Al[place]. ARTERIAL CIRCULATION: There is no appreciable aneurysm, vascular malformation, occlusion, or stenosis of the visualized and circulation PERFUSION: There is no obvious parenchymal perfusion deficit. HEMORRHAGE/INFARCT: There is no hemorrhage or acute infarct. MASSES/SHIFT: There is no mass or shift. EXTRA-AXIAL SPACES: There are no extra-axial fluid collections. SULCI AND VENTRICLES: The sulci and ventricles are normal in size and position for the patient's stated age. CEREBRUM: There are no focal parenchymal abnormalities. BRAINSTEM: There are no focal parenchymal abnormalities. CEREBELLUM: There are no focal parenchymal abnormalities. PARANASAL SINUSES: The paranasal sinuses are clear. ORBITS: The orbits are unremarkable. BONES AND SOFT TISSUE: No bone or soft tissue abnormalities are noted. OTHER: There is no abnormal enhancement. IMPRESSION: NO VENOUS SINUS THROMBOSIS OR OCCLUSION
[2017-01-05] MEDS: FLUoxetine CAP* 20 MG PO SCH (07:41)
[2017-01-05] MEDS: Multivitamins/Minerals TAB PO SCH (07:41)
[2017-01-05] MEDS: Acetaminophen TAB* 325 MG PO SCH (07:42)
[2017-01-05] MEDS: Lisinopril TAB* 5 MG PO SCH (07:42)
[2017-01-05] MEDS: Magnesium Oxide TAB* 400 MG PO SCH (07:42)
[2017-01-05] MEDS: Cetirizine* 10 MG TAB PO SCH (07:43)
[2017-01-05] MEDS: Ondansetron INJ* 2 MG/ML VIAL IV PRN ×2 (08:39→16:29)
--- NOTE | 2017-01-05 08:42 | HP ---
CC: Dr. Anish Henriquez * HISTORY AND PHYSICAL: DATE OF ADMISSION: 01/05/17 CHIEF COMPLAINT: Headache. HISTORY OF PRESENT ILLNESS: The patient is a 46-year-old woman who said she has had a bad headache since last Thursday and it started at 7:00 a.m. on that day. It can be 10/10 in severity. She states it is around her entire head. She has no neck stiffness associated, but does have photophobia. She said noises seem to bother her a great deal, even though slightest. She denies any recent upper respiratory infection, but 3 weeks ago she was told she had a cellulitis after developing fever. 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 In the ED, the patient did have a lumbar puncture, which showed 171 white blood cells, mostly lymphocytes, and appears to have a viral meningitis. PAST MEDICAL HISTORY: She has a past medical history significant for type 2 diabetes, insulin dependent, hypothyroidism, chronic idiopathic urticaria, depression, anxiety, spondylolisthesis in L4-L5, nephrolithiasis, polycystic ovarian disease syndrome. She has no cartilage in her knees. She has psoriasis , osteoarthritis, asthma that is mild, and hypertension that is mild. PAST SURGICAL HISTORY: Ruptured ovarian cyst requiring exploratory lap, lap cholecystectomy, left shoulder stabilization and lithotripsy with ureteral stents. CURRENT MEDICATIONS: Are as follows: 1. Probiotic 1 tablet twice daily. 2. Albuterol inhaler 2 puffs every 6 hours as needed. 3. Zyrtec 2.5 mg daily. 4. Bee 180 mg daily. This needs to be checked on as they are two of the same thing. 5. Fluoxetine 40 mg daily. 6. Diclofenac with misoprostol 75 mg twice a day. 7. Ibuprofen 200 mg every 6 hours as needed. 8. Lantus insulin 45 units subcu twice daily. 9. Metformin 1000 mg twice daily. 10. Magnesium 250 mg daily. 11. Lisinopril 2.5 mg daily. 12. Synthroid 300 mcg daily. 13. Actos 45 mg daily. 14. Soft Lens Rewetting drops. 15. Protopic p.r.n. 16. Vicks Sinex p.r.n. 17. Percocet 7.5/325 mg 1 tablet every 6 hours as needed. 18. Zofran 4 mg every 4 hours as needed for nausea. 19. Multivitamin 1 tablet daily. 20. Lorazepam 0.5 mg every 6 hours as needed. 21. Clobetasol propionate as directed. 22. Calcium carbonate 2 tablets daily. 23. Dovonex 0.005% as directed. 24. Acetaminophen extra strength 1000 mg twice daily as needed. ALLERGIES: Adverse reactions to CIPRO, NITROFURANTOIN, PENICILLIN, SULFA, BUMETANIDE, HYDROCHLOROTHIAZIDE, ALMAS'S BEES BODY OIL, CHEER DETERGENT, POISON [place], and RAGWEED. FAMILY HISTORY: Mother is alive at 73, has diabetes and hypothyroidism. Father , but she did not know him well. SOCIAL HISTORY: No tobacco, alcohol or recreational drug use. She is a [employer]. She is in a 16-year committed relationship and the person she has it with, Neelima Stauffer, is her healthcare proxy. REVIEW OF SYSTEMS: A 14-point review of systems was completed with the patient. All pertinent positives and negatives are in the history of present illness, otherwise it is negative. PHYSICAL EXAMINATION GENERAL: Pleasant gentleman, lying in bed, in no acute distress. VITAL SIGNS: Are as follows, temperature 98.4 degrees, heart rate is 84 beats per minute, respiratory rate 20 breaths per minute, pulse ox 98%, blood pressure 130/52. HEENT: Normocephalic, atraumatic. Pupils equal, round, and reactive. Moist mucous membranes. NECK: Supple. No JVD, bruits, palpable thyroid or lymphadenopathy. CHEST: Clear to auscultation and percussion bilaterally. CARDIOVASCULAR: S1, S2 appreciated. Regular rate and rhythm. ABDOMEN: Positive bowel sounds in all 4 quadrants. Soft, nontender, and nondistended. No hepatosplenomegaly. EXTREMITIES: No cyanosis, clubbing or edema. +2 pulses bilaterally. NEUROLOGIC: Alert and oriented x3. Moves all extremities. SKIN: No rashes or abnormalities. DIAGNOSTIC STUDIES/LABORATORY DATA: White count 9.3, hemoglobin 11.2, hematocrit 34, platelets are 306. Sodium is 136, potassium 4.0, chloride 102, CO2 of 25, BUN 18, creatinine 0.85, glucose is 200. Blood gas is carbon monoxide screen is negative. Cerebrospinal fluid, white cells 171, 99% lymphocytes, 95 glucose, 52 protein. Head CTA not available for review at this time. ASSESSMENT AND PLAN: 1. Viral meningitis. We will place the patient on acyclovir 630 mg IV q.8 hours, Dilaudid p.r.n., for pain, Zofran p.r.n. for nausea. Neurology to see in the a.m. 2. Diabetes mellitus. Hold metformin and Actos. Continue Lantus and place on fingerstick sliding-scale insulin. 3. Hypothyroidism, stable. Continue Synthroid. 4. Hypertension, excellent control. Continue current regimen. 5. Depression, stable. Continue fluoxetine. 6. FEN. Consistent carb diet. 7. DVT prophylaxis. Heparin subcu. 8. The patient is a full code. TIME SPENT: Over 80 minutes were spent on this H and P; more than 45 minutes of which was spent in direct [id number] contact with the patient in evaluation , physical exam, counseling, and coordination of care. [id number]/[facility] #: [id number] MTDD
[2017-01-05] MEDS: Insulin LISPRO* 1 UNITS UNIT SUBCUT SCH ×4 (08:43→20:46)
[2017-01-05] MEDS: MISOPROSTOL PO SCH ×2 (08:44→23:04)
[2017-01-05] MEDS: Insulin GLARGINE(*) 1 UNITS UNIT SUBCUT SCH ×2 (08:44→21:03)
[2017-01-05] MEDS: Lactobacillus Acidophilu (GG)* 1 CAP CAP PO SCH ×2 (08:44→22:30)
[2017-01-05] MEDS: DICLOFENAC PO SCH ×2 (08:44→23:04)
[2017-01-05] MEDS ORDERED: Cetirizine* 10 MG TAB PO SCH (09:00)
--- NOTE | 2017-01-05 09:38 | PN ---
Subjective Date of Service: 01/05/17 Interval History: This is a 46 yo female with IDDM, hypothyroidism, chronic idiopathic urticaria, depression/anxiety, PCOS who presented with a severe, intractable HEART that started ~5d ago. LP was performed in the ED with demonstrated elevated protein and WBCs with opening pressures that were difficult to interpret as she was sitting for the procedure. She gives a h/o of fevers and malaise for ~4d approximately 3 weeks ago which were self limited after which she developed LLE erythema and she was subsequently treated for a cellulitis with clindamycin. The last day of her clindamycin therapy she developed the HEART that brought her in today. Patient was subsequently admitted for suspected viral meningitis. This am she has a persistent HEART and nausea which is manageable with IV analgesia and antiemetics. No focal weakness, numbness, tingling, visual changes. Objective Active Medications: Acetaminophen (Tylenol Tab*) 975 mg PO DAILY [facility] Last Admin: 01/05/17 07:42 Dose: 975 mg Acetaminophen (Tylenol Tab*) 650 mg PO Q4H PRN PRN Reason: FEVER/PAIN Hydrocodone Bitart/Acetaminophen (Nortab 7.5/325 Liq*) 15 ml PO Q6HR [facility] Last Admin: 01/05/17 05:34 Dose: Not Given Albuterol (Ventolin Hfa Inhaler*) 2 puff INH Q6H PRN PRN Reason: asthma Cetirizine HCl (Zyrtec*) 10 mg PO DAILY [facility] PRN Reason: Protocol Last Admin: 01/05/17 07:43 Dose: 10 mg Dextrose (D50w Syringe 50 Ml*) 12.5 gm IV PUSH .FOR FS < 60 - SS PRN PRN Reason: FS < 60 Fluoxetine HCl (Prozac Cap*) 40 mg PO DAILY [facility] Last Admin: 01/05/17 07:41 Dose: 40 mg Heparin Sodium (Porcine) (Heparin Vial(*)) 5,000 units SUBCUT Q8HR [facility] Last Admin: 01/05/17 05:30 Dose: Not Given Hydromorphone HCl (Dilaudid Iv*) 1 mg IV SLOW PU Q2H PRN PRN Reason: PAIN Last Admin: 01/05/17 07:36 Dose: 1 mg Acyclovir Sodium 630 mg/ (Sodium Chloride) 112.6 mls @ 112.6 mls/hr IVPB Q8H [facility] Last Admin: 01/05/17 08:42 Dose: 112.6 mls/hr Ceftriaxone Sodium 2 gm/ (Sodium Chloride) 100 mls @ 200 mls/hr IVPB Q24H [facility] Last Admin: 01/05/17 07:57 Dose: 200 mls/hr Ibuprofen (Advil Tab*) 200 mg PO Q6H PRN PRN Reason: PAIN Insulin Glargine (Lantus(*)) 45 units SUBCUT BID [facility] Last Admin: 01/05/17 08:44 Dose: 45 units Insulin Human Lispro (Humalog*) 0 units SUBCUT ACHS [facility] PRN Reason: Protocol Last Admin: 01/05/17 08:43 Dose: 3 units Ketorolac Tromethamine (Toradol Inj*) 15 mg IV PUSH Q6H PRN PRN Reason: PAIN Last Admin: 01/05/17 01:48 Dose: 15 mg Lactobacillus Rhamnosus (Culturelle*) 1 cap PO BID [facility] Last Admin: 01/05/17 08:44 Dose: Not Given Levothyroxine Sodium (Synthroid Tab*) 300 mcg PO DAILY@0600 [facility] Last Admin: 01/05/17 05:41 Dose: 300 mcg Lisinopril (Prinivil Tab*) 2.5 mg PO DAILY [facility] Last Admin: 01/05/17 07:42 Dose: 2.5 mg Lorazepam (Ativan Tab(*)) 0.5 mg PO Q6H PRN PRN Reason: ANXIETY Last Admin: 01/05/17 05:05 Dose: 0.5 mg Magnesium Oxide (Magox 400 Tab*) 400 mg PO DAILY [facility] Last Admin: 01/05/17 07:42 Dose: 400 mg Multivitamins/Minerals (Theragran/Minerals Tab*) 1 tab PO DAILY [facility] Last Admin: 01/05/17 07:41 Dose: 1 tab Diclofenac W/Misoprostol [ Arthrotec 75 75-0.2 Mg] 75 mg PO BID [facility] Last Admin: 01/05/17 08:44 Dose: Not Given Ondansetron HCl (Zofran Inj*) 4 mg IV Q4H PRN PRN Reason: NAUSEA Last Admin: 01/05/17 08:39 Dose: 4 mg Vital Signs: Temp Pulse Resp BP Pulse Ox 99.0 F 78 18 130/51 94 08/14/17 07:34 01/05/17 07:34 01/05/17 07:36 01/05/17 07:34 01/05/17 07:34 Appearance: Uncomfortable appearing middle aged obese female in NAD Respiratory: Symmetrical Chest Expansion and Respiratory Effort, Clear to Auscultation Cardiovascular: NL Sounds; No Murmurs; No JVD, RRR Abdominal: NL Sounds; No Tenderness; No Distention Extremities: No Edema Skin: No Rash or Ulcers Neurological: Alert and Oriented x 3 Result Diagrams: 01/04/17 18:11 01/04/17 18:11 Additional Lab and Data: Vital Signs: Temp Pulse Resp BP Pulse Ox 99.0 F 78 18 130/51 94 01/05/17 07:34 01/05/17 07:34 01/05/17 07:36 01/05/17 07:34 01/05/17 07:34 Diagnostic Imaging: CTA head - WNL Assess/Plan/Problems-Billing Assessment: This is a 46 yo female with IDDM, morbid obesity, hypothyroidism, chronic idiopathic urticaria, depression and anxiety and PCOS who presented with a severe HEART that has been intractable for the last 5d with elevated protein and WBC on CSF. She has been admitted for a suspected viral meningitis. - Patient Problems (1) Viral meningitis, unspecified Comment: Elevated WBCs and protein with elevated opening pressures but in a seated position Neg head CT and CTA Consider lyme encephalitis as well Neuro consult pending Cont acyclovir, viral studies pending Added ceftriaxone and Lyme serology for possible lyme encephalitis (2) IDDM (insulin dependent diabetes mellitus) Comment: Cont Lantus per home dosing and cover with SS Humalog prn hyperglycemia (3) Hypothyroidism Comment: Cont levothyroxine (4) Depression with anxiety Comment: Cont Prozac (5) Chronic idiopathic urticaria Comment: Cont antihistamines (6) Full code status (7) DVT prophylaxis Comment: SQ heparin Status and Disposition: Inpatient. Anticipate LOS of at least 2-3 days.
[2017-01-05 13:54] LABS: Urine Bacteria 1+ (Absent); Urine Bilirubin Negative (Negative); Urine Glucose Negative (Negative); Urine Nitrite Positive (Negative)
[2017-01-05] MEDS ORDERED: PROCHLORPERAZINE INJ 5 MG/ML 2 ML VIAL IV PRN (17:13)
[2017-01-05] MEDS ORDERED: NS 0.9% 1000 ML* 1,000 ML IV SCH (17:15)
--- NOTE | 2017-01-05 17:36 | CONS ---
NEUROLOGY CONSULTATION: DATE OF CONSULT: 01/05/17 LOCATION: The patient is an inpatient. REQUESTING PHYSICIAN: Atif Munoz MD REASON FOR CONSULT: Probable meningitis. HISTORY OF PRESENT ILLNESS: Drake Taveras is a 46-year-old woman with morbid obesity as well as insulin-dependent diabetes, hypothyroidism, depression, and anxiety, who presented to the emergency department yesterday for the second time in 1 week with report of headache. This headache began on December 30 and initially was mild enough that she was able to take some Tylenol or ibuprofen in the morning and still able to go to work, but by the time she got home from work, the headache would be severe and she would have to go to bed. She had some mild neck stiffness over this time as well. On the , she presented for the first time to Urgent Care and then was sent to the emergency department , reporting this to be the worst headache of her life. She had a CT scan of her brain, which was negative. She was sent home and then returned to the emergency department last evening with continued severe headache, which she says has been getting worse over the course of the past week. She underwent lumbar puncture in the emergency department, which was notable for an opening pressure of 50 cm of water, but it should be noted that this lumbar puncture had to be performed while the patient was seated with her knees flexed up above her hips and she could not be laid down safely for accurate measurement of her opening pressure. I spoke with Dr. Amezcua at that time and somewhere between 16 and 20 cc of fluid was removed and sent for testing. It's not clear that the headache responded to this removal of fluid because she was also receiving Dilaudid, but the headache did improve somewhat. The fluid showed 171 white blood cells, 99% lymphocytes, and 6 red blood cells. Her CSF glucose was elevated at 99 and her CSF total protein was mildly elevated at 52. Her blood glucose was not measured at the exact time of the LP, but 3 hours prior to the LP, it was 200. As a result of her CSF studies and her intractable headache, which had been worsening over the past week, she was recommended to be admitted to the hospital. The patient reports that she had a febrile illness approximately 3 weeks ago. With this, she had malaise and body aches, but no focal symptoms otherwise. Specifically, she denies any pharyngitis, nasal congestion or discharge, nausea , vomiting, diarrhea, or cough. She did have a headache at that time, but it was more mild than her current headache. As she was getting over this illness, she developed erythema, swelling and warmth of her left lower extremity and was seen in the emergency department and started on clindamycin. She finished the 7 -day course of clindamycin 1 day before the onset of this current headache. She did have some GI upset and diarrhea while taking clindamycin. With the current headache, she denies any focal neurologic symptoms including no extremity weakness or numbness, no vertigo, no diplopia or blurry vision, no slurred speech or aphasia. She does not have a history of migraine headaches, but does occasionally get some tension headaches. She takes Arthrotec on a twice daily basis, which is a longstanding medication for her for joint pains and denies taking any significant NSAIDs on top of this, though she was using some occasionally (ibuprofen) recently for this severe headache. On my evaluation this morning, she was significantly uncomfortable and became more nauseated shortly after I came in the room and began to vomit. This initially increased her headache significantly, but afterward her headache was slightly improved and her photophobia was slightly improved as well. She is unable to say whether the headache has a positional component because she does not ever lay flat secondary to spondylolisthesis causing back muscle spasm when she reclines. Even at home, she sleeps sitting up in a recliner. PAST MEDICAL HISTORY: 1. Type 2 diabetes, insulin dependent. 2. Hypothyroidism. 3. Chronic idiopathic urticaria. 4. Depression. 5. Anxiety. 6. Spondylolisthesis L4-L5, which the patient says prevents her from being able to lie flat. 7. Nephrolithiasis. 8. Polycystic ovarian syndrome. 9. Psoriasis. 10. Osteoarthritis. 11. Mild asthma. 12. Hypertension. 13. Morbid obesity. PAST SURGICAL HISTORY: 1. Ruptured ovarian cyst, requiring exploratory laparotomy. 2. Laparoscopic cholecystectomy. 3. Left shoulder stabilization. 4. Lithotripsy with ureteral stents. CURRENT MEDICATIONS: 1. Probiotic 1 tablet twice daily. 2. Albuterol 2 puffs q.6 hours p.r.n. 3. Zyrtec 2.5 mg daily. 4. Bee 180 mg daily. 5. Fluoxetine 40 mg daily. 6. Arthrotec twice a day. 7. Ibuprofen 200 mg every 6 hours as needed. 8. Lantus 45 units twice daily. 9. Metformin 1000 mg twice daily. 10. Magnesium 250 daily. 11. Lisinopril 2.5 mg daily. 12. Synthroid 300 mcg daily. 13. Actos 45 mg daily. 14. Rewetting drops. 15. Protopic p.r.n. 16. Percocet 7.5/325 mg q.6 hours p.r.n. 17. Zofran 4 mg q.4 hours p.r.n. nausea. 18. Multivitamins. 19. Lorazepam 0.5 mg q.6 p.r.n. 20. Clobetasol propionate p.r.n. 21. Calcium carbonate 2 tablets daily. 22. Dovonex 0.005% as directed. 23. Acetaminophen p.r.n. ALLERGIES: Includes CIPRO, NITROFURANTOIN, PENICILLIN, SULFA, BUMETANIDE, HYDROCHLOROTHIAZIDE, ALMAS'S BEES BODY OIL, CHEER DETERGENT, POISON LLOYD, RAGWEED. FAMILY HISTORY: There is extensive family history of diabetes. Mother has hypothyroidism as well. SOCIAL HISTORY: She denies tobacco, alcohol, or drug use. 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 She is in a committed relationship and her male partner is her healthcare proxy. REVIEW OF SYSTEMS: The patient endorses some night sweats, which she says have been going for years. She has had a 35-pound weight loss since October, but this was intentional. She denies any change in her appetite. She denies any new skin rashes or joint swellings. PHYSICAL EXAMINATION: Vital Signs: Temperature 99, blood pressure 130/51, heart rate 78, oxygen saturation 94% on room air. On general examination, she is a super-morbidly obese woman, sitting up in the ER stretcher. She is in mild to moderate distress secondary to her headache and nausea at the beginning of the encounter, but is reduced to appearing significantly uncomfortable once she vomits. Her heart is in a regular rate and rhythm with no murmurs, rubs or gallops. Lungs are clear to auscultation bilaterally. There are no obvious skin rashes. On neurologic examination, she is fully awake, alert, and oriented. Speech is fluent without dysarthria or aphasia. Her pupils are equal, round, and reactive from 3 to 2 mm bilaterally. The fundi were difficult to visualize nondilated, but there was no obvious papilledema. Versions are full without nystagmus. Visual christie are full to confrontation. Facial sensation and musculature is full and symmetric. Hearing is intact to finger rub. Palate elevates symmetrically and the tongue is midline. On motor examination, she has got normal bulk and tone in the upper and lower extremities. Her upper extremities were full strength with no pronator drift. Lower extremities were extremely difficult to test secondary to her pannus, which rested on her thighs down to her knees. Ankle dorsiflexion and plantar flexion was full. Reflexes were 2 to 3+ in the upper extremities, 2+ at the knees and at the ankles with downgoing toes bilaterally. Sensation was intact to light touch in the upper and lower extremities. [id number] was without ataxia. The patient was not ambulated. DIAGNOSTIC STUDIES/LAB DATA: CBC showed a white blood cell count of 9.3, hematocrit of 34, hemoglobin of 11.2 and platelets of 306. The differential shows slightly low lymphocyte percentage of 16.5, slightly high monocyte percentage of 10.3, and slightly high absolute monocytes of 1. Her sedimentation rate was 87. Chemistry panel was notable for a blood glucose of 200, which was nonfasting and a slightly elevated BUN to creatinine ratio of 21.2. Her lactate was normal. Liver functions were normal. CSF studies were reviewed as per the HPI. CSF Gram stain showed 4+ nucleated cells, 3+ neutrophils, and no organisms seen. Culture is pending. Other pending CSF studies ordered last evening include Lyme serology and herpes simplex PCR. Brain CT from 01/02/[address] venogram from 01/04/17 were personally reviewed and were unremarkable. Specifically, there was no sinus thrombosis noted and no abnormal areas of enhancement in the brain. IMPRESSION: Drake Taveras is a 46-year-old woman who presented with 5 days of headache of increasing severity over that time in the setting of a febrile illness associated with general malaise occurring 3 weeks previously and also a left lower extremity cellulitis occurring approximately 2 weeks ago. Her CSF profile is concerning for a viral meningitis. Added on to her CSF at this point includes enterovirus PCR as well as varicella zoster PCR. After discussion with the patient of her job exposures, we have also added West Nile PCR to the CSF given that she frequently works with fixed specimens, which have tested positive for West Nile. We will also check flow cytometry on the CSF given her report of some night sweats and weight loss, but this will likely be normal. Currently, she is being covered for herpes simplex with acyclovir as well as ceftriaxone 2 g q.24 hours. Her pain is being controlled with opioids as needed and her nausea with Zofran. At this point, I would likely keep her pending improvement in her symptoms as well as return of the HSV PCR. This was discussed with the patient and she was agreeable with this at this time. Thank you for this consultation. [id number]/[facility] #: [id number] RADHA
[2017-01-06] MEDS: HYDROcodone/ACET. 7.5/325 LIQ* 15 ML UDC PO SCH ×5 (00:10→23:08)
[2017-01-06] MEDS: HYDROmorphone* 1 MG/ML 1 ML SYR IV SLOW PU PRN ×2 (03:31→21:13)
[2017-01-06] MEDS: Heparin VIAL(*) 5000 UNITS/ML VIAL (FIVE THOUSAND) SUBCUT SCH ×3 (06:13→20:58)
[2017-01-06] MEDS: Levothyroxine TAB* 150 MCG TAB PO SCH (06:13)
[2017-01-06] MEDS: Ketorolac INJ* 15 MG/ML 1 ML VIAL IV PUSH PRN ×2 (07:35→16:43)
[2017-01-06] MEDS: Acetaminophen TAB* 325 MG PO SCH (09:22)
[2017-01-06] MEDS: FLUoxetine CAP* 20 MG PO SCH (09:22)
[2017-01-06] MEDS: Lactobacillus Acidophilu (GG)* 1 CAP CAP PO SCH ×2 (09:23→21:14)
[2017-01-06] MEDS: Cetirizine* 10 MG TAB PO SCH (09:23)
[2017-01-06] MEDS: Multivitamins/Minerals TAB PO SCH (09:23)
[2017-01-06] MEDS: Lisinopril TAB* 5 MG PO SCH (09:23)
[2017-01-06] MEDS: Magnesium Oxide TAB* 400 MG PO SCH (09:23)
[2017-01-06 09:25] LABS: Hematocrit 31 % (35-47); Hemoglobin 10.4 g/dl (12.0-16.0); Mean Corpuscular HGB Conc 33 g/dl (31-36); Mean Corpuscular Hemoglobin 31 pg (27-31); Mean Corpuscular Volume 92 fL (80-97); Mean Platelet Volume 9 um3 (7.4-10.4); Red Blood Count 3.38 10^6/ul (4.0-5.4); Red Cell Distribution Width 15 % (10.5-15); White Blood Count 8.2 10^3/ul (3.5-10.8)
[2017-01-06] MEDS: Insulin LISPRO* 1 UNITS UNIT SUBCUT SCH ×4 (09:25→21:30)
[2017-01-06] MEDS: Insulin GLARGINE(*) 1 UNITS UNIT SUBCUT SCH ×2 (09:25→21:31)
[2017-01-06] MEDS: MISOPROSTOL PO SCH ×2 (09:28→20:50)
[2017-01-06] MEDS: DICLOFENAC PO SCH ×2 (09:28→20:50)
[2017-01-06 09:36] LABS: BUN/Creatinine Ratio 19.5 (8-20); Calcium 8.7 mg/dL (8.6-10.3); EGFR African American 104.3 (>60); EGFR Non-African American 81.1 (>60); Potassium 4.1 mmol/L (3.5-5.0)
--- NOTE | 2017-01-06 10:42 | PN ---
Subjective Date of Service: 01/06/17 Interval History: Patient reports significant improvement in HEART and nausea as well as neck stiffness. She was able to eat breakfast this am. Denies CP, SOB, abd pain, n/ v Objective Active Medications: Acetaminophen (Tylenol Tab*) 975 mg PO DAILY [facility] Last Admin: 01/06/17 09:22 Dose: 975 mg Acetaminophen (Tylenol Tab*) 650 mg PO Q4H PRN PRN Reason: FEVER/PAIN Hydrocodone Bitart/Acetaminophen (Nortab 7.5/325 Liq*) 15 ml PO Q6HR [facility] Last Admin: 01/06/17 06:07 Dose: Not Given Albuterol (Ventolin Hfa Inhaler*) 2 puff INH Q6H PRN PRN Reason: asthma Cetirizine HCl (Zyrtec*) 10 mg PO DAILY [facility] PRN Reason: Protocol Last Admin: 01/06/17 09:23 Dose: 10 mg Dextrose (D50w Syringe 50 Ml*) 12.5 gm IV PUSH .FOR FS < 60 - SS PRN PRN Reason: FS < 60 Fluoxetine HCl (Prozac Cap*) 40 mg PO DAILY [facility] Last Admin: 01/06/17 09:22 Dose: 40 mg Heparin Sodium (Porcine) (Heparin Vial(*)) 5,000 units SUBCUT Q8HR [facility] Last Admin: 01/06/17 06:13 Dose: 5,000 units Hydromorphone HCl (Dilaudid Iv*) 1 mg IV SLOW PU Q2H PRN PRN Reason: PAIN Last Admin: 01/06/17 03:31 Dose: 1 mg Acyclovir Sodium 630 mg/ (Sodium Chloride) 112.6 mls @ 112.6 mls/hr IVPB Q8H [facility] Last Admin: 01/06/17 09:20 Dose: 112.6 mls/hr Ceftriaxone Sodium 2 gm/ (Sodium Chloride) 100 mls @ 200 mls/hr IVPB Q24H [facility] Last Admin: 01/05/17 07:57 Dose: 200 mls/hr Sodium Chloride (Ns 0.9% 1000 Ml*) 1,000 mls @ 60 mls/hr IV .PER RATE [facility] Last Admin: 01/05/17 18:01 Dose: 60 mls/hr Ibuprofen (Advil Tab*) 200 mg PO Q6H PRN PRN Reason: PAIN Last Admin: 01/05/17 16:29 Dose: 200 mg Insulin Glargine (Lantus(*)) 45 units SUBCUT BID [facility] Last Admin: 01/06/17 09:25 Dose: 45 units Insulin Human Lispro (Humalog*) 0 units SUBCUT ACHS [facility] PRN Reason: Protocol Last Admin: 01/06/17 09:25 Dose: 3 units Ketorolac Tromethamine (Toradol Inj*) 15 mg IV PUSH Q6H PRN PRN Reason: PAIN Last Admin: 01/06/17 07:35 Dose: 15 mg Lactobacillus Rhamnosus (Culturelle*) 1 cap PO BID [facility] Last Admin: 01/06/17 09:23 Dose: 1 cap Levothyroxine Sodium (Synthroid Tab*) 300 mcg PO DAILY@0600 [facility] Last Admin: 01/06/17 06:13 Dose: 300 mcg Lisinopril (Prinivil Tab*) 2.5 mg PO DAILY [facility] Last Admin: 01/06/17 09:23 Dose: 2.5 mg Lorazepam (Ativan Tab(*)) 0.5 mg PO Q6H PRN PRN Reason: ANXIETY Last Admin: 01/05/17 05:05 Dose: 0.5 mg Magnesium Oxide (Magox 400 Tab*) 400 mg PO DAILY [facility] Last Admin: 01/06/17 09:23 Dose: 400 mg Multivitamins/Minerals (Theragran/Minerals Tab*) 1 tab PO DAILY [facility] Last Admin: 01/06/17 09:23 Dose: 1 tab Diclofenac W/Misoprostol [ Arthrotec 75 75-0.2 Mg] 75 mg PO BID [facility] Last Admin: 01/06/17 09:28 Dose: Not Given Ondansetron HCl (Zofran Inj*) 4 mg IV Q4H PRN PRN Reason: NAUSEA Last Admin: 01/05/17 16:29 Dose: 4 mg Prochlorperazine Edisylate (Compazine Inj*) 5 mg IV Q6H PRN PRN Reason: NAUSEA/VOMITING Last Admin: 01/05/17 17:56 Dose: 5 mg Vital Signs: Temp Pulse Resp BP Pulse Ox 99.1 F 77 17 114/45 98 01/06/17 07:36 01/06/17 07:36 01/06/17 07:36 01/06/17 07:36 01/06/17 07:36 Appearance: Well appearing middle aged obese female in NAD Respiratory: Symmetrical Chest Expansion and Respiratory Effort, Clear to Auscultation Cardiovascular: NL Sounds; No Murmurs; No JVD, RRR Abdominal: NL Sounds; No Tenderness; No Distention Skin: No Rash or Ulcers Neurological: Alert and Oriented x 3, - - neck is supple, no acute neurologic deficits, gait intact Result Diagrams: 01/06/17 09:06 01/06/17 09:06 Additional Lab and Data: Vital Signs: Temp Pulse Resp BP Pulse Ox 99.0 F 78 18 130/51 94 01/05/17 07:34 01/05/17 07:34 01/05/17 07:36 01/05/17 07:34 01/05/17 07:34 Diagnostic Imaging: CTA head - WNL Assess/Plan/Problems-Billing Assessment: This is a 46 yo female with IDDM, morbid obesity, hypothyroidism, chronic idiopathic urticaria, depression and anxiety and PCOS who presented with a severe HEART that has been intractable for the last 5d with elevated protein and WBC on CSF. She has been admitted for a suspected viral meningitis. - Patient Problems (1) Viral meningitis, unspecified Comment: Elevated WBCs and protein with elevated opening pressures but in a seated position Neg head CT and CTA Consider lyme encephalitis as well Appreciate input from neurology Cont acyclovir and ceftriaxone, viral studies and Lyme serology pending (2) IDDM (insulin dependent diabetes mellitus) Comment: Cont Lantus per home dosing and cover with SS Humalog prn hyperglycemia (3) Hypothyroidism Comment: Cont levothyroxine (4) Depression with anxiety Comment: Cont Prozac (5) Chronic idiopathic urticaria Comment: Cont antihistamines (6) Full code status (7) DVT prophylaxis Comment: SQ heparin Status and Disposition: Inpatient. Anticipate dc in 1-2 days
[2017-01-06 15:09] LABS: HSV 1 PCR, CSF Negative (Negative); HSV 2 PCR, CSF Negative (Negative)
[2017-01-06 17:26] LABS: Enterovirus Result Negative (Negative); Enterovirus Source CSF
[2017-01-06 18:04] LABS: CSF West Nile Virus RNA (PCR) Negative (Negative); West Nile Virus Source CSF
[2017-01-06 21:04] LABS: Varicella Zoster Result Negative (Negative); Varicella Zoster Source CSF
[2017-01-06] MEDS: LORazepam TAB(*) 0.5 MG PO PRN (23:45)
[2017-01-07] MEDS: Ondansetron INJ* 2 MG/ML VIAL IV PRN (04:32)
[2017-01-07] MEDS: HYDROmorphone* 1 MG/ML 1 ML SYR IV SLOW PU PRN (04:32)
[2017-01-07] MEDS: Levothyroxine TAB* 150 MCG TAB PO SCH (05:47)
[2017-01-07] MEDS: HYDROcodone/ACET. 7.5/325 LIQ* 15 ML UDC PO SCH (05:48)
[2017-01-07] MEDS: Heparin VIAL(*) 5000 UNITS/ML VIAL (FIVE THOUSAND) SUBCUT SCH (05:48)
[2017-01-07] MEDS: Ketorolac INJ* 15 MG/ML 1 ML VIAL IV PUSH PRN (05:57)
[2017-01-07] MEDS: Insulin LISPRO* 1 UNITS UNIT SUBCUT SCH (08:34)
[2017-01-07 09:19] VITALS: BP 116/50
[2017-01-07] MEDS: Lisinopril TAB* 5 MG PO SCH (09:26)
[2017-01-07] MEDS: Acetaminophen TAB* 325 MG PO SCH (09:26)
[2017-01-07] MEDS: Multivitamins/Minerals TAB PO SCH (09:27)
[2017-01-07] MEDS: Lactobacillus Acidophilu (GG)* 1 CAP CAP PO SCH (09:27)
[2017-01-07] MEDS: Magnesium Oxide TAB* 400 MG PO SCH (09:27)
[2017-01-07] MEDS: FLUoxetine CAP* 20 MG PO SCH (09:28)
[2017-01-07] MEDS: Cetirizine* 10 MG TAB PO SCH (09:28)
[2017-01-07] MEDS: DICLOFENAC PO SCH (09:29)
[2017-01-07] MEDS: MISOPROSTOL PO SCH (09:29)
[2017-01-07] MEDS: Insulin GLARGINE(*) 1 UNITS UNIT SUBCUT SCH (09:30)
--- NOTE | 2017-01-08 13:54 | DS ---
CC: Dr. Henriquez; Dr. Yvette Byers * DISCHARGE SUMMARY: DATE OF ADMISSION: 01/04/17. DATE OF DISCHARGE: 01/07/17. PRIMARY CARE PROVIDER: Dr. Henriquez. CONSULTING NEUROLOGIST: Dr. Byers. DISCHARGING PROVIDER: ZELALEM Doran. SUPERVISING PHYSICIAN: Dr. Magaly John * (DICTATED BY ZELALEM DORAN) PRIMARY DISCHARGE DIAGNOSIS: Viral meningitis without specific pathogen isolated. SECONDARY DISCHARGE DIAGNOSES: 1. Insulin-dependent diabetes. 2. Hypothyroidism. 3. Severe morbid obesity with a BMI of 75. 4. Depression and anxiety. 5. Chronic idiopathic urticaria. DISCHARGE MEDICATIONS: 1. Synthroid 300 mcg p.o. daily. 2. Albuterol inhaler 2 puffs inhaled q. 6 hours as needed for shortness of breath. 3. Cetirizine 2.5 mg p.o. daily. 4. Diclofenac with misoprostol 75 mg p.o. twice daily. 5. Fluoxetine 40 mg p.o. daily. 6. Bee 180 mg p.o. daily. 7. Ibuprofen 200 mg p.o. q. 6 hours as needed for pain or fever. 8. Lantus 45 units subcu twice daily. 9. Lisinopril 2.5 mg p.o. daily. 10. Magnesium 250 mg p.o. daily. 11. Metformin 1000 mg p.o. twice daily. 12. Zofran 4 mg p.o. q. 4 hours as needed for nausea. 13. Multivitamin 1 tablet p.o. daily. 14. Oxycodone with acetaminophen 7.5/325 one tablet p.o. q. 6 hours as needed for pain. 15. Actos 45 mg p.o. daily. 16. Probiotic 1 tablet p.o. twice daily. Medication changes: 1. P.r.n. Zofran. 2. P.r.n. Percocet. HOSPITAL IMAGIN. CTA of the head shows no acute process, specifically no venous sinus thrombosis or occlusion. 2. CT of the brain from 01/02/17 showed no acute process. HOSPITAL COURSE: This is a 46-year-old female with insulin-dependent diabetes and super morbid obesity, who presented to the emergency department with a severe intractable headache. Patient had been seen in the emergency department with the same complaint approximately 2 days prior and was discharged to home after a normal CT scan. Her symptoms did not improve and she subsequently returned for reevaluation. Patient underwent lumbar puncture in the emergency department, which demonstrated a CSF consistent with a viral process with a clear fluid, but a WBC of 17.1 mostly lymphocytes without a significant number of red blood cells. CSF glucose of 99 and total protein mildly elevated to 52. Patient was afebrile when she reached the emergency department. Initial CBC was unremarkable as was her initial chemistry panel. Patient gave a history of a 5-day febrile illness approximately 3 weeks prior that was self-limited. She then developed left lower extremity erythema and was treated for cellulitis with clindamycin for approximately 10 days. The last day of her antibiotic treatment is when she developed a headache that prompted this hospital admission. The patient denied any associated rashes or additional fevers. No arthralgias, myalgias, or night sweats. She was tested for Lyme serology as well as CSF, HSV, VZV, enterovirus and West Nile as well as flow cytometry on her CSF, all of which came back negative. The patient received supportive care measures with IV fluids, empiric treatments included ceftriaxone and acyclovir which was discontinued after serologies and PCR studies returned negative. Pain was controlled with IV analgesics and she required antiemetics. At the time of discharge, patient had a very mild headache and mild nausea, but significantly improved since admission and does not require further therapy. DISPOSITION AND FOLLOWUP PLAN: The patient is being discharged to home with medications as noted above. She requires close followup with her primary care provider. She can follow up with Dr. Yvette Byers for any concerns related to this hospital admission in the future, but specific followup is not indicated. ZELALEM DORAN [id number]/[facility] #: [id number] RADHA
== END 2017-01-07 11:25 | disposition home or self-care (01) | DRG 51 ==
LOC: ED 17:33 → MED 01-05 01:07
PROVIDERS: ADMIT Internal Medicine; ATTEND Internal Medicine
PROC: 009U3ZX Drainage of Spinal Canal, Percutaneous Approach, Diagnostic (ICD-10-PCS; principal; 2017-01-05)
DX: A87.9 Viral meningitis, unspecified (principal); Z68.45 Body mass index [BMI] 70 or greater, adult; I10 Essential (primary) hypertension; E11.9 Type 2 diabetes mellitus without complications; E03.9 Hypothyroidism, unspecified; J45.909 Unspecified asthma, uncomplicated; Z96.0 Presence of urogenital implants; L50.1 Idiopathic urticaria; E28.2 Polycystic ovarian syndrome; M19.90 Unspecified osteoarthritis, unspecified site; F32.9 Major depressive disorder, single episode, unspecified; F41.9 Anxiety disorder, unspecified; M43.16 Spondylolisthesis, lumbar region; L40.9 Psoriasis, unspecified; E66.01 Morbid (severe) obesity due to excess calories; Z79.4 Long term (current) use of insulin; Z88.1 Allergy status to other antibiotic agents; Z88.0 Allergy status to penicillin; Z88.2 Allergy status to sulfonamides; Z88.8 Allergy status to other drugs, medicaments and biological substances; Z91.048 Other nonmedicinal substance allergy status; Z87.442 Personal history of urinary calculi; Z82.49 Family history of ischemic heart disease and other diseases of the circulatory system; Z83.3 Family history of diabetes mellitus; Z90.49 Acquired absence of other specified parts of digestive tract
CPT/HCPCS: 36415; 70496; 80048; 80053; 81003; 81015; 82375; 82945; 83605; 84157; 85025; 85652; 86618; 87040; 87070; 87077; 87086; 87186; 87205; 87498; 87529; 87798; 88112; 88184; 88185; 88187; 88188; 89051; A9270-GY; J0133; J0696; J0780; J1170; J1644; J1885; J2405; Q9967

== ENCOUNTER 2017-05-03 09:24 | Emergency (ER) | payer BC ==
[2017-05-03 10:09] VITALS: BP 135/75
--- NOTE | 2017-05-03 10:26 | UC ---
Complaint Female HPI - HPI Summary HPI Summary: Dysuria, hematuria, urinary frequency. This feels like prior UTI. she has Dm but hga1c is wnl. She has kidney stones but this does not feel like kidney stone and she has no fever, vomiting, flank pain. - History Of Current Complaint Chief Complaint: UCGU Stated Complaint: URINARY Time Seen by Provider: 05/03/17 09:57 Hx Obtained From: Patient Hx Last Menstrual Period: 04/03/17 ?: No Onset/Duration: Gradual Onset, Lasting Days Timing: Constant, Lasting Days Severity Initially: Mild Severity Currently: Moderate Character: Burning Aggravating Factor(s): Urination Alleviating Factor(s): Nothing Associated Signs And Symptoms: Negative: Vaginal Bleeding/Discharge, Vaginal Discharge, Nausea, Vomiting(# Of Episodes =), Genital Swelling, Retained Foregin Body (Specify) - Allergies/Home Medications Allergies/Adverse Reactions: Allergies Allergy/AdvReac Type Severity Reaction Status Date / Time Ciprofloxacin [From Cipro] Allergy Severe Hives Verified 01/04/17 21:39 Nitrofurantoin Allergy Severe Hives Verified 01/04/17 21:39 [From Macrobid] Penicillins Allergy Severe Hives Verified 01/04/17 21:39 Sulfa Drugs Allergy Severe Hives Verified 01/04/17 21:39 Clindamycin Allergy Hives Verified 05/03/17 10:04 Bumetanide AdvReac Hives Verified 01/04/17 21:39 Hydrochlorothiazide AdvReac Hives Verified 01/04/17 21:39 Fallon Bees Body oil Allergy Hives Uncoded 01/04/17 21:39 Cheer detergent Allergy Hives Uncoded 01/04/17 21:39 poison telma Allergy Hives Uncoded 01/04/17 21:39 ragweed Allergy Congestion Uncoded 01/04/17 21:39 PMH/Surg Hx/FS Hx/Imm Hx Previously Healthy: No - DM, obesity, depression. - Surgical History Surgical History: Yes Surgery Procedure, Year, and Place: L shoulder stabilization ; ruptured ovarian cyst 1984. kidney stone lased and ureteral stent left sided '. lap maggie 1997. ex lap- 1984 - Family History Known Family History: Positive: Hypertension, Diabetes, Other - mother - ocular migraines - Social History Alcohol Use: None Substance Use Type: None Smoking Status (MU): Never Smoked Tobacco - Immunization History Most Recent Influenza Vaccination: never Most Recent Pneumonia Vaccination: never Vaccination Up to Date: Yes Review of Systems Genitourinary: Dysuria, Hematuria, Frequency All Other Systems Reviewed And Are Negative: Yes Physical Exam Triage Information Reviewed: Yes Appearance: Well-Appearing, No Pain Distress, Obese Vital Signs: Initial Vital Signs Temp 98 F 05/03/17 10:01 Pulse 64 05/03/17 10:01 Resp 18 05/03/17 10:01 BP 135/75 05/03/17 10:01 Pulse Ox 100 05/03/17 10:01 Vital Signs Reviewed: Yes Eyes: Positive: Conjunctiva Clear ENT: Positive: Normal ENT inspection Neck: Positive: Supple, Nontender, No Lymphadenopathy. Negative: Nuchal Rigidity Respiratory: Positive: Chest non-tender, Lungs clear, Normal breath sounds, No respiratory distress, No accessory muscle use. Negative: Respiratory distress, Decreased breath sounds, Accessory muscle use, Crackles, Rhonchi, Stridor, Wheezing Cardiovascular: Positive: RRR, No Murmur, Pulses Normal, Brisk Capillary Refill Abdomen Description: Positive: Nontender, No Organomegaly, Soft. Negative: CVA Tenderness (R), CVA Tenderness (L), Distended, Guarding Musculoskeletal: Positive: Strength Intact, ROM Intact Neurological: Positive: Alert, Muscle Tone Normal. Negative: Fatigued Psychological: Positive: Age Appropriate Behavior Complaint Female Dx - Course Course Of Treatment: No signs of pyelonephritis or sepsis. she will return for any worsening. She denies any vaginal symptoms of any kind. - Differential Dx/Diagnosis Provider Diagnoses: dysuria, hematuria, probable uti. Discharge - Discharge Plan Condition: Good Disposition: HOME Prescriptions: DOXYcycline CAP(*) [DOXYcycline 100MG CAP(*)] 100 mg PO BID #20 cap Patient Education Materials: Urinary Tract Infection in Women (ED) Referrals: Anish Henriquez MD [Primary Care Provider] -
--- NOTE | 2017-05-06 07:13 | UC ---
Progress - Progress Note Progress Note: Pt with + UTI Pt on Doxycycline - not tested for sensitivity please contact pt and see if sx improved In not, will Rx tetracycline Chris 05/06/17
== END 2017-05-03 10:27 | disposition home or self-care (01) ==
LOC: UCCORT 09:24
DX: R30.0 Dysuria (principal); R31.9 Hematuria, unspecified; E11.9 Type 2 diabetes mellitus without complications; E66.9 Obesity, unspecified; F32.9 Major depressive disorder, single episode, unspecified
CPT/HCPCS: 81003; 87077; 87086; 87186; 99212; G0463

== ENCOUNTER 2018-02-08 17:32 | Emergency (ER) | payer BC ==
--- NOTE | 2018-02-08 19:42 | UC ---
Skin Complaint HPI - HPI Summary HPI Summary: PT IS C/O A 2-3 WEEK HX OF A SKIN ULCER UNDER HER BELLY FLAP. STATES SHE HAS BEEN SELF TX'ING WITH SOAP/H2O, THEN ADDED HIBICLENS FOLLOWED BY NEOSPORIN BUT IT IS NOT HEALING. HAD SOMETHING SIMILAR AND IT WAS MRSA. NO FEVER. BS'S UNCHANGED WITH THIS AND NO FEVER OR DRAINAGE. SHE USES ANTIFUNGAL CREAM IN THE ACTUAL SKIN FOLD. - History of Current Complaint Time Seen by Provider: 02/08/18 19:26 Stated Complaint: SKIN ISSUE Hx Obtained From: Patient Hx Last Menstrual Period: 12/18/16 Onset/Duration: Gradual Onset Timing: Constant Aggravating Factor(s): Nothing Alleviating Factor(s): Nothing Associated Signs & Symptoms: Negative: Nausea, Shivering, Fever, Chills - Allergy/Home Medications Allergies/Adverse Reactions: Allergies Allergy/AdvReac Type Severity Reaction Status Date / Time MS Ciprofloxacin [From Cipro] Allergy Severe Hives Verified 02/08/18 19:36 MS Nitrofurantoin Allergy Severe Hives Verified 02/08/18 19:36 [From Macrobid] MS Penicillins [Penicillins] Allergy Severe Hives Verified 02/08/18 19:36 MS Sulfa Drugs [Sulfa Drugs] Allergy Severe Hives Verified 02/08/18 19:36 MS Clindamycin [Clindamycin] Allergy Hives Verified 02/08/18 19:36 MS Bumetanide [Bumetanide] AdvReac Hives Verified 02/08/18 19:36 MS Hydrochlorothiazide AdvReac Hives Verified 02/08/18 19:36 [Hydrochlorothiazide] Fallon Bees Body oil Allergy Hives Uncoded 02/08/18 19:36 Cheer detergent Allergy Hives Uncoded 02/08/18 19:36 poison telma Allergy Hives Uncoded 02/08/18 19:36 ragweed Allergy Congestion Uncoded 01/04/17 21:39 Home Medications: Home Medications Clotrimazole 1% CREAM* [Clotrimazole 1%*] 1 applic TOPICAL BID 02/08/18 [ History Confirmed 02/08/18] Review of Systems Constitutional: Negative Skin: Other - ULCER ABDOMINAL SKIN Eyes: Negative ENT: Negative Respiratory: Negative Cardiovascular: Negative Gastrointestinal: Negative Genitourinary: Negative Motor: Negative Neurovascular: Negative Musculoskeletal: Negative Neurological: Negative Psychological: Negative Is Patient Immunocompromised?: No All Other Systems Reviewed And Are Negative: Yes PMH/Surg Hx/FS Hx/Imm Hx - Additional Past Medical History Additional PMH: kidney stones, PCOS, pneumonia anxiety depression, OA hx MRSA on chest, then on upper posterior thigh; idiopathic urticaria, 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 kidney stone lased and ureteral stent left sided '. lap maggie 1997. ex lap- 1984 - Family History Known Family History: Positive: Hypertension, Diabetes, Other - mother - ocular migraines - Social History Occupation: Employed Full-time Alcohol Use: None Substance Use Type: None Smoking Status (MU): Never Smoked Tobacco - Immunization History Most Recent Influenza Vaccination: never Most Recent Pneumonia Vaccination: never Vaccination Up to Date: Yes Physical Exam Triage Information Reviewed: Yes Appearance: Well-Appearing Vital Signs Reviewed: Yes Eyes: Positive: Conjunctiva Clear ENT: Positive: Normal ENT inspection Neck: Positive: Supple, Nontender, No Lymphadenopathy Respiratory: Positive: Lungs clear, Normal breath sounds Cardiovascular: Positive: RRR, No Murmur Abdomen Description: Positive: Nontender, No Organomegaly, Soft Bowel Sounds: Positive: Present Musculoskeletal: Positive: ROM Intact Neurological: Positive: Alert Psychological: Positive: Age Appropriate Behavior Skin Exam: Normal, Other - Abdominal flap lifted by pt which revealed a quarter size superficial ulceration on the left underside. No odor or drainage. culture obtained. Course/Dx - Course Course Of Treatment: GIVEN HX MRSA, WILL COVER WITH DOXYCYCLINE AND BACTROBAN PLUS CLOSE F/U. WOUND CULTURE IS PENDING. BP ELEVATED HERE. HX HTN THAT IS TREATING. PT STATES ALWAYS ELEVATED DURING DOCTOR VISITS BUT THEN NORMAL AFTER. WILL HAVE IT RECHECKED ON F/U WITH HER PCP - Diagnoses Provider Diagnoses: SUPERFICIAL ULCERATION UNDER L ABDOMINAL SKIN FOLD. Discharge - Sign-Out/Discharge Documenting (check all that apply): Patient Departure All imaging exams completed and their final reports reviewed: No Studies - Discharge Plan Condition: Stable Disposition: HOME Prescriptions: DOXYcycline CAP(*) [DOXYcycline 100MG CAP(*)] 100 mg PO BID #20 cap Mupirocin 2% OINT* [Bactroban 2 % Oint*] 1 applic TOPICAL BID 10 Days #1 tube Patient Education Materials: Pressure Injury (ED) Referrals: Anish Henriquez MD [Primary Care Provider] - 5 Days - Billing Disposition and Condition Condition: STABLE Disposition: Home
[2018-02-08 19:48] VITALS: BP 172/73
--- NOTE | 2018-02-12 07:54 | UC ---
- Progress Note Progress Note: culture + Klebsiella ssensitive to tetracycline Pt on Doxycycline no change Note: allergies not updated in chart ljj 02/12/18 7:53 Discharge - Sign-Out/Discharge Documenting (check all that apply): Post-Discharge Follow Up All imaging exams completed and their final reports reviewed: No Studies - Discharge Plan Condition: Stable Disposition: HOME Prescriptions: DOXYcycline CAP(*) [DOXYcycline 100MG CAP(*)] 100 mg PO BID #20 cap Mupirocin 2% OINT* [Bactroban 2 % Oint*] 1 applic TOPICAL BID 10 Days #1 tube Patient Education Materials: Pressure Injury (ED) Referrals: Anish Henriquez MD [Primary Care Provider] - 5 Days - Billing Disposition and Condition Condition: STABLE Disposition: Home
== END 2018-02-08 19:57 | disposition home or self-care (01) ==
LOC: UCCORT 17:32
DX: Z88.0 Allergy status to penicillin (principal); Z88.1 Allergy status to other antibiotic agents; Z88.8 Allergy status to other drugs, medicaments and biological substances; I10 Essential (primary) hypertension; Z86.14 Personal history of Methicillin resistant Staphylococcus aureus infection; L98.499 Non-pressure chronic ulcer of skin of other sites with unspecified severity
CPT/HCPCS: 87070; 87077; 87186; 87205; 87640; 87641; 99212; G0463

== ENCOUNTER 2019-08-31 20:29 | Inpatient (IN) | payer BC ==
[2019-08-31] MEDS ORDERED: NS 0.9% 1000 ML** 1,000 ML IV ONE (20:53)
[2019-08-31] MEDS ORDERED: Morphine 4 MG/ML VIAL (1 ml) 4 MG/ML VIAL IV ONE (20:53)
[2019-08-31] MEDS ORDERED: Vancomycin(*) 1,500 MG in NS 0.9% 250 ML* 250 ML IVPB ONE (20:53)
[2019-08-31] MEDS ORDERED: cefTRIAXone(*) 2 GM in NS 0.9% 100 ML* 100 ML IVPB ONE (20:58)
--- NOTE | 2019-08-31 21:05 | ED ---
Skin Complaint - HPI Summary HPI Summary: 48 y/o F with history of cellulitis presenting to [facility] for evaluation of worsening erythema/blistering/pain of the RLE onset 8 days ago. She reports that on 08/23/2019, she had woken up with a fever of 103F and chills, but then went to bed and had slept the entire next day. The following day, she developed pain in the RLE. She visited her PCP who started the patient on a course of Keflex for cellulitis, which she continued to take over the weekend. On 2019 she returned to her PCP for continued symptoms, and the abx were upgraded to Doxycycline and Levaquin. She is now experiencing worsening redness and blistering to the RLE. Pain is rated 3/10 in severity now. She denies any CP, SOB, cough, sore throat, or any return of the fevers and chills. PMHx includes HTN, DM, hypothyroidism, MRSA, viral meningitis. FHx of DM. Nonsmoker, no EtOH or substance use. Medications reviewed. Multiple allergies noted. - History of Current Complaint Chief Complaint: EDRashSkinAbscess Time Seen by Provider: 08/31/19 20:39 Stated Complaint: FEVER HEADACHE PER PT Hx Obtained From: Patient Hx Last Menstrual Period: 12/18/16 Onset/Duration: Started Days Ago, Still Present Skin Exposure Onset/Duration: Days Ago Timing: Constant Onset Severity: Mild Current Severity: Moderate Pain Intensity: 3 Pain Scale Used: 0-10 Numeric Skin Location: Leg - right Character: Pain, Redness Aggravating Symptom(s): Nothing Alleviating Symptom(s): Nothing - multiple abx courses w/o relief Associated Signs & Symptoms: Fever - one episode, Chills - resolved Related History: Diabetes - Additional Pertinent History Primary Care Physician: [id number] - Allergy/Home Medications Allergies/Adverse Reactions: Allergies Allergy/AdvReac Type Severity Reaction Status Date / Time bumetanide Allergy Hives Verified 08/31/19 20:49 ciprofloxacin [From Cipro] Allergy Hives Verified 08/31/19 20:49 clindamycin Allergy Hives Verified 08/31/19 20:49 hydrochlorothiazide Allergy Hives Verified 08/31/19 20:49 nitrofurantoin Allergy Hives Verified 08/31/19 20:49 [From Macrobid] Penicillins Allergy Hives Verified 08/31/19 20:49 Sulfa (Sulfonamide Allergy Hives Verified 08/31/19 20:49 Antibiotics) Fallon Bees Body oil Allergy Hives Uncoded 08/31/19 20:49 Cheer detergent Allergy Hives Uncoded 08/31/19 20:49 poison telma Allergy Hives Uncoded 08/31/19 20:49 ragweed Allergy Congestion Uncoded 08/31/19 20:49 Home Medications: Home Medications Fexofenadine (NF) [Bee 180 (NF)] 180 mg PO DAILY PRN 04/28/14 [History Confirmed 08/31/19] Ibuprofen TAB* [Advil TAB*] 200 mg PO Q6H PRN 04/28/14 [History Confirmed ] Lisinopril TAB* [Prinivil TAB 5 MG*] 2.5 mg PO DAILY 04/28/14 [History Confirmed 08/31/19] Albuterol HFA INHALER* [Ventolin HFA Inhaler*] 2 puff INH Q4H PRN 08/31/19 [ History Confirmed 08/31/19] DOXYcycline CAP(*) [DOXYcycline 100MG CAP(*)] 100 mg PO BID 08/31/19 [History Confirmed 08/31/19] Diclofenac Sodium/Misoprostol [Diclofenac Sodium/Misopro] 1 tab PO BID 08/31/19 [History Confirmed 08/31/19] FLUoxetine CAP* [PROzac CAP*] 60 mg PO DAILY 08/31/19 [History Confirmed ] Insulin Glargine,Hum.rec.anlog [Lantus Solostar 100 units/ml 3 ml x 5 PENS] 50 units SUBCUT BID 08/31/19 [History Confirmed 08/31/19] Levofloxacin TAB* [Levaquin TAB*] 500 mg PO DAILY 08/31/19 [History Confirmed ] Levothyroxine TAB* [Synthroid TAB*] 300 mcg PO DAILY 08/31/19 [History Confirmed 08/31/19] Pioglitazone TAB* [Actos TAB*] 45 mg PO DAILY 08/31/19 [History Confirmed ] metFORMIN* [Glucophage 1000 MG TAB *] 1,000 mg PO BID 08/31/19 [History Confirmed 08/31/19] PMH/Surg Hx/FS Hx/Imm Hx Endocrine/Hematology History: Reports: Hx Diabetes, Hx Thyroid Disease Cardiovascular History: Reports: Hx Hypertension Respiratory History: Reports: Hx Asthma History: Reports: Hx Kidney Stones Sensory History: Reports: Hx Contacts or Glasses Denies: Hx Hearing Aid Opthamlomology History: Reports: Hx Contacts or Glasses - Cancer History Hx Chemotherapy: No Hx Radiation Therapy: No - Surgical History Surgical History: Yes Surgery Procedure, Year, and Place: L shoulder stabilization ; ruptured ovarian cyst 1984. kidney stone lased and ureteral stent left sided '. lap maggie 1997. ex lap- 1984 Infectious Disease History: No Infectious Disease History: Reports: Hx of Known/Suspected MRSA, History Other Infectious Disease - VIRAL MENNIGITIS Denies: Traveled Outside the [place] in Last 30 Days - Family History Known Family History: Positive: Hypertension, Diabetes, Other - mother - ocular migraines - Social History Alcohol Use: None Hx Substance Use: No Substance Use Type: Reports: None Hx Tobacco Use: No Smoking Status (MU): Never Smoked Tobacco Review of Systems Positive: Fever - 103F occuring once, Chills - resolved Negative: Sore Throat Negative: Chest Pain Negative: Shortness Of Breath, Cough Positive: Myalgia - pain in RLE Positive: Other - erythema/blistering of RLE All Other Systems Reviewed And Are Negative: Yes Physical Exam - Summary Physical Exam Summary: Constitutional: Well-developed, Well-nourished, Alert. (-) Distressed Skin: Warm, Dry; Erythema of the RLE with weeping wounds, Area of skin sloughing , Area very tender, Warm compared to the LLE, When patient got into bed about 100ccs of serous fluid drained onto the floor from her shoe HENT: Normocephalic; Atraumatic Eyes: Conjunctiva normal Neck: Musculoskeletal ROM normal neck. (-) JVD, (-) Stridor, (-) Tracheal deviation Cardio: Rhythm regular, rate normal, Heart sounds normal; Intact distal pulses; Radial pulses are 2+ and symmetric. (-) Murmur Pulmonary/Chest wall: Effort normal. (-) Respiratory distress, (-) Wheezes, (-) Rales Abd: Soft, (-) tenderness, (-) Distension, (-) Guarding, (-) Rebound Musculoskeletal: RLE swollen compared to the LLE Lymph: (-) Cervical adenopathy Neuro: Alert, Oriented x3 Psych: Mood and affect Normal Triage Information Reviewed: Yes Vital Signs On Initial Exam: Initial Vitals Temp Pulse Resp BP Pulse Ox 98.3 F 101 18 166/64 98 08/31/19 20:39 08/31/19 20:39 08/31/19 20:39 08/31/19 20:39 08/31/19 20:39 Vital Signs Reviewed: Yes Procedures - Sedation Patient Received Moderate/Deep Sedation with Procedure: No Diagnostics - Vital Signs Vital Signs Temp Pulse Resp BP Pulse Ox 08/31/19 20:39 98.3 F 101 18 166/64 98 - Laboratory Result Diagrams: 08/31/19 22:56 08/31/19 21:27 Lab Statement: Any lab studies that have been ordered have been reviewed, and results considered in the medical decision making process. - Ultrasound Venous Doppler RLE Ultrasound Interpretation Completed By: Radiologist Summary of Ultrasound Findings: Impression: No evidence of occlusive deep vein thrombosis from the right common femoral to the popliteal veins on this limited study. Dr. Schmitt has reviewed this report. - EKG 2112 Cardiac Rate: NL - 86 BPM EKG Rhythm: Sinus Rhythm Summary of EKG Findings: NSR at rate of [address] Schmitt has reviewed and interpreted this EKG. Course/Dx - Course Course Of Treatment: Patient is here with cellulitis of the right lower extremity for which she has been failing outpatient therapy. Patient has obviously left lower extremity with weeping open wounds. Patient had blood work performed which showed a normal lactate. Patient had blood culture sent. Patient was treated empirically with vancomycin and Rocephin given her allergies to multiple antibiotics. Patient had a DVT study performed which was negative. Patient was admitted to the hospitalist - Diagnoses Provider Diagnoses: Cellulitis of right lower extremity, Hyponatremia, CHETAN (acute kidney injury), Hyperglycemia, Morbid obesity - Physician Notifications Discussed Care Of Patient With: Ivania Baker - hospitalist Time Discussed With Above Provider: 22:15 Instructed by Provider To: Other - I discussed the patients case with Dr. Baker , who accepts the patient for admission. Discharge ED - Sign-Out/Discharge Documenting (check all that apply): Patient Departure - Patient accepted for admission by Dr. Baker. - Discharge Plan Condition: Stable Disposition: ADMITTED TO [facility] - Billing Disposition and Condition Condition: STABLE Disposition: Admitted to [facility] - Attestation Statements Document Initiated by Lucrecia: Yes Documenting Scribe: Cassi Avery Provider For Whom Lucrecia is Documenting (Include Credential): Jordi Schmitt MD Scribe Attestation: Cassi Licea, scribed for Jordi Schmitt MD on 09/01/19 at 0115. Scribe Documentation Reviewed: Yes Provider Attestation: The documentation as recorded by the Cassi sanchez accurately reflects the service I personally performed and the decisions made by me, Jordi Schmitt MD Status of Scribe Document: Viewed
[2019-08-31] MEDS ORDERED: NS 0.9% 250 ML* 250 ML ONE (21:13)
[2019-08-31 21:36] LABS: Hematocrit 34 % (35-47); Hemoglobin 11.1 g/dL (12.0-16.0); Mean Corpuscular HGB Conc 33 g/dL (31-36); Mean Corpuscular Hemoglobin 30 pg (27-31); Mean Corpuscular Volume 92 fL (80-97); Mean Platelet Volume 9.1 fL (7.4-10.4); Red Blood Count 3.65 10^6 /uL (3.70-4.87); Red Cell Distribution Width 15 % (10-15); White Blood Count 19.3 10^3/uL (3.5-10.8)
[2019-08-31 21:54] LABS: Albumin 3.2 g/dL (3.2-5.2); Albumin/Globulin Ratio 0.8 (1-3); BUN/Creatinine Ratio 31.9 (8-20); C Reactive Protein 165.39 mg/L (<8.01); Calcium 9.2 mg/dL (8.6-10.3); EGFR African American 62.5 (>60); EGFR Non-African American 51.6 (>60); Globulin 4.1 g/dL (2-4); Potassium 4.1 mmol/L (3.5-5.0); Total Bilirubin 0.3 mg/dL (0.2-1.0); Total Protein 7.3 g/dL (6.4-8.9)
[2019-08-31 22:20] LABS: ABS Basophils 0.1 10^3/ul (0-0.2); ABS Eosinophils 0.4 10^3/ul (0-0.6); ABS Lymphocytes 1.9 10^3/ul (1.0-4.8); ABS Monocytes 1.7 10^3/ul (0-0.8); ABS Neutrophils 15.3 10^3/ul (1.5-7.7); Eosinophil % 1.8 %; Lymphocyte % 9.7 %
[2019-08-31 22:21] LABS: Platelet Morphology Clumped
[2019-08-31 22:24] LABS: Platelet Count Platelets clumped. 10^3/uL (150-450)
--- OUTSIDE RECORDS SUMMARY | 2019-08-31 22:33 | XMS REPORT | Continuity of Care Document ---
:1970 External Reference #:[id number] Author Name Anish Henriquez M.D. (transmitted by agent of provider Clarissa Neely) Address [address] [place] [address] Care Team Providers Name Role Phone [facility] [facility] - [place] Disorder Care Team Information Manager Radio [phone] Diagnostic Zaire Mason - Endocrinology, Diabetes & Care Team Information Manager Radio [phone] Metabolism Anish Henriquez - Family Medicine Care Team Information Manager Radio [phone] [facility] [place] [facility] - Clinic/Center Care Team Information Manager Radio Problems Active Problems Provider Date Type 2 diabetes mellitus Onset: 10/25/2008 Hypothyroidism Maria L Cisneros M.D. Onset: 07/07/2011 Benign essential hypertension Maria L Cisneros M.D. Onset: 07/07/2011 Generalized anxiety disorder Maria L Cisneros M.D. Onset: 07/07/2011 Disorder of kidney and/or ureter Marai L Cisneros M.D. Onset: 08/18/2011 Malaise and fatigue Maria L Cisneros M.D. Onset: 08/18/2011 Cellulitis Nichole Mcclelland M.D. Onset: 12/15/2011 Increased frequency of urination Anish Henriquez M.D. Onset: 01/22/2012 Hyperlipidemia Anish Henriquez M.D. Onset: 09/30/2012 Vitamin D deficiency Anish Henriquez M.D. Onset: 09/30/2012 Depressive disorder Anish Henriquez M.D. Onset: 05/10/2013 Acute sinusitis Anish Henriquez M.D. Onset: 06/06/2014 Disorder of skin and/or subcutaneous Anish Henriquez M.D. Onset: 06/06/2014 tissue Arthralgia of the lower leg Anish Henriquez M.D. Onset: 12/08/2014 Essential hypertension Anish Henriquez M.D. Onset: 05/29/2015 Localized, primary osteoarthritis Anish Henriquez M.D. Onset: 05/29/2015 Dysthymic disorder Anish Henriquez M.D. Onset: 05/29/2015 Low back pain Anish Henriquez M.D. Onset: 05/29/2015 Viral meningitis Anish Henriquez M.D. Onset: 01/13/2017 Urinary tract infectious disease Anish Henriquez M.D. Onset: 01/23/2017 Headache Anish Henriquez M.D. Onset: 01/23/2017 Myalgia Anish Henriquez M.D. Onset: 01/30/2017 Open wound of lateral abdominal wall Anish Henriquez M.D. Onset: 06/15/2018 without complication Morbid obesity Anish Henriquez M.D. Onset: 11/29/2018 Social History Type Date Description Comments Sex Unknown Tobacco Use Start: Unknown Patient has never smoked Allergies, Adverse Reactions, Alerts Active Allergies Reaction Severity Comments Date Penicillin ALLERGY Moderate Hives Sulfa Drugs Hives Moderate Cipro Hives Moderate 10/25/2008 Macrobid Hives Moderate 10/25/2008 Poison Melissa 02/23/2010 Bumetanide hives 05/27/2016 Hydrochlorothiazide hives 05/27/2016 Clindamycin Rash/Itching 01/23/2017 Medications Active Medications SIG Qnty Indications Ordering Date Provider Doxycycline Hyclate 1 by mouth twice a 20caps L03.115 Anish Luna 08/29/19 100mg day Robert Henriquez 20 Capsules Levofloxacin 1 by mouth every 10tabs L03.115 Anish Luna 08/29/19 500mg Tablets day Desi HenriquezDRita 20 Diflucan 1 by mouth now. 4tabs L03.115 Tressa Ann 04/03/20 200mg Tablets repeat in one week Robert Ibrahim 20 as necessary. Albuterol Sulfate HFA Inhale 2 Puffs By 42.5units Anish Luna 08/10/19 Mouth Every 4 Hours Robert Henriquez 20 108(90Base) mcg/Act as Needed Aerosol Methylprednisolone as directed for 1Pack Anish Luna 07/11/19 4mg TBPK inflamation Robert Henriquez 20 Levothyroxine Sodium Take 1 Tablet By 90tabs Anish Luna 08/17/19 25mcg Mouth Every Day Robert Henriquez 19 Tablets Pioglitazone HCL take 1 tablet by 90tabs Anish Luna 08/04/19 45mg mouth once daily Robert Henriquez 19 Tablets Fluoxetine HCL 3 by mouth every 270caps F41.1 Anish Luna 06/23/19 20mg day Robert Henriquez 18 Capsules Lantus Solostar inject 60 units 75units Anish Luna 05/07/20 100Unit/ML subcutaneously In Robert Henriquez 17 Solution Pen-Inject Am And Adjust Evening Dose According To Glucose Readings Imodium A-D 1 by mouth qhs Unknown 05/21/20 2mg Tablets 16 Levothyroxine Sodium take 1 tablet by 90tabs Anish Luna 05/05/20 300mcg mouth once daily Robert Henriquez 16 Tablets Vitamin D 1 by mouth bid Family 06/06/19 2000Unit Tablets Medicine 15 [facility] Oxycodone-Acetaminophen 1 by mouth every 6 30tabs Anish Luna 06/06/19 hours as needed Robert Henriquez 15 7.5-325mg Tablets pain Pen [place] 31G X 5/16" use twice a day w/ 180units Gerardo Luna 05/10/20 lantus pen MD Sharon 13 31GX5/16 Misc Lorazepam 1 twice a day as 40tabs Anish Luna 06/29/19 0.5mg Tablets needed anxiety Robert Henriquez 13 Metformin HCL take 1 tablet 2 180tabs E11.9 Anish Luna 07/25/19 1000mg times a day. Robert Henriquez 12 Tablets Lisinopril take 1 tablet by 90tabs I10 Anish Luna 07/07/19 2.5mg Tablets mouth once daily Robert Henriquez 12 Protopic apply twice a day 100gm Anish Luna 01/16/20 0.1% Ointment Robert Henriquez 10 Dovonex apply twice a day 120gm Anish Luna 01/16/20 0.005% Cream Robert Henriquez 10 Bee 1 po qd 90tabs Maria L Weeks 10/26/19 180mg Tablets Robert Cisneros 09 Centrum 1 po qd 1bottle [facility] 10/26/19 Tablets Medicine 09 [facility] Zinc 1 po qd [facility] 10/26/19 50mg Tablets Medicine [address] [place] [address] Magnesium 1 po qd [facility] 10/26/19 250mg Tablets Medicine 09 [facility] Clobetasol Propionate as directed 30gm Anish Luna 10/26/19 0.05% Robert Henriquez 09 Cream Diclofenac-Misoprostol Take 1 Tablet By 180tabs Anish Luna 10/26/19 Mouth Twice Daily Robert Henriquez 09 75-0.2mg Tablets DR as Needed Zyrtec Allergy 1 po qd/ otc/ prn 30caps Unknown 10mg 00 Capsules History Medications Cephalexin 1 by mouth 30tabs L03.115 Tressa Ann 08/26/2019 - 500mg three times a Robert Ibrahim 08/29/2019 Tablets day for 10 days. Immunizations CPT Code Status Date Vaccine Reaction Lot # 38110 Given 05/29/2015 Influenza Vac, Quadrivalent, [id number] [address] Given 02/01/2014 DO Not Use Split Influenza Virus [id number] Vaccine 47788 Given 02/04/2013 DO Not Use Split Influenza Virus [id number] Vaccine 08905 Given 03/02/2012 DO Not Use Split Influenza Virus no reaction noted [id number] Vaccine 35608 Given 03/14/2011 DO Not Use Split Influenza Virus Vaccine 68372 Given 01/09/2009 Tdap Tetanus, W Pertussis [id number] Vital Signs Date Vital Result Comment 07/11/2019 4:24pm BP Systolic 128 mmHg BP Diastolic 82 mmHg Heart Rate 68 /min Body Temperature 97.9 F Respiratory Rate 18 /min 03/08/2019 5:16pm BP Systolic 126 mmHg BP Diastolic 70 mmHg Heart Rate 86 /min Body Temperature 98.1 F Respiratory Rate 20 /min Results Test Acquired Date Facility Test Result H/L Range Note Laboratory test 07/11/2019 [facility] Hemoglobin A1c 6.5 % % High 4.1-5.7 finding (607)- - (Fma) Laboratory test 03/08/2019 [facility] Hemoglobin A1c 7.1% % High 4.1 -5.7 finding (607)- - (a) Comprehensive 03/08/2019 [facility](a) Sodium 139 mEq/L 134-149 Metabolic Prof Potassium 4.8 mEq/L 3.6-5.5 Chloride 103 mEq/L 94-112 Carbon Dioxide 28 mEq/L 21-32 Glucose 143 mg/dL High 70-105 BUN 29 mg/dL High 6-26 Creatinine 0.9 mg/dL 0.6-1.4 BUN/Creat Ratio 32.2 CALC 8.0-36.0 Calcium 9.5 mg/dL 8.6-10.2 Total Protein 7.5 g/dL 6.4-8.3 Albumin 4.4 g/dL 3.8-5.5 Globulin 3.1 g/dL 2.0-4.8 A/G Ratio 1.4 CALC 0.6-2.3 Alk. Phosphatase 82 U/L 30-110 Alt (SGPT) 14 U/L 7-35 Ast (Sgot) 18 U/L 5-34 Total Bilirubin 0.3 mg/dL 0.2-1.3 GFR Non- >60 ml/min/1.73m^ >=60 GFR >60 ml/min/1.73m^ >=60 Procedures Date Code Description Status 07/11/2019 39046 Finger Or Heel Stick Completed 06/29/2019 [id number] Diabetic Retinal Eye Exam Completed 03/04/2013 [id number] Mammogram Completed Medical Devices Description No Information Available Encounters Type Date Location Provider Dx Diagnosis Office Visit 08/29/2019 Main Office Ravi Escalante03.115 Cellulitis of right 2:20p Robert lower limb E11.9 Type 2 diabetes mellitus without complications Office Visit 08/26/2019 1:20p [facility] Tressa Rodrigues03.115 Cellulitis of Robert Ibrahim right lower limb Office Visit 08/25/2019 10:20a Main Office Anish Henriquez, R11.0 Nausea M.D. R50.9 Fever, unspecified I10 Essential (primary) hypertension E11.9 Type 2 diabetes mellitus without complications Office Visit 07/11/2019 4:20p Main Office Anish Henriquez, I10 Essential ( primary) M.D. hypertension E11.9 Type 2 diabetes mellitus without complications F34.1 Dysthymic disorder E03.8 Other specified hypothyroidism F41.1 Generalized anxiety disorder M17.0 Bilateral primary osteoarthritis of knee E66.01 Morbid (severe) obesity due to excess calories Office Visit 03/08/2019 5:20p Main Office Anish Henriquez, I10 Essential ( primary) M.D. hypertension E11.9 Type 2 diabetes mellitus without complications F34.1 Dysthymic disorder E03.8 Other specified hypothyroidism F41.1 Generalized anxiety disorder M17.0 Bilateral primary osteoarthritis of knee E66.01 Morbid (severe) obesity due to excess calories Assessments Date Code Description Provider 08/29/2019 L03.115 Cellulitis of right lower limb Anish Henriquez M.D. 08/29/2019 E11.9 Type 2 diabetes mellitus without Anish Henriquez M.D. complications 08/26/2019 L03.115 Cellulitis of right lower limb Tressa Ibrahim M.D. 08/25/2019 R11.0 Nausea Anish Henriquez M.D. 08/25/2019 R50.9 Fever, unspecified Anish Henriquez M.D. 08/25/2019 I10 Essential (primary) hypertension Anish Henriquez M.D. 08/25/2019 E11.9 Type 2 diabetes mellitus without Anish Henriquez M.D. complications 07/11/2019 I10 Essential (primary) hypertension Anish Henriquez M.D. 07/11/2019 E11.9 Type 2 diabetes mellitus without Anish Henriquez M.D. complications 07/11/2019 F34.1 Dysthymic disorder Anish Henriquez M.D. 07/11/2019 E03.8 Other specified hypothyroidism Anish Henriquez M.D. 07/11/2019 F41.1 Generalized anxiety disorder Anish Henriquez M.D. 07/11/2019 M17.0 Bilateral primary osteoarthritis of knee Anish Henriquez M.D. 07/11/2019 E66.01 Morbid (severe) obesity due to excess Anish Henriquez M.D. calories 03/08/2019 I10 Essential (primary) hypertension Anish Henriquez M.D. 03/08/2019 E11.9 Type 2 diabetes mellitus without Anish Henriquez M.D. complications 03/08/2019 F34.1 Dysthymic disorder Anish Henriquez M.D. 03/08/2019 E03.8 Other specified hypothyroidism Anish Henriquez M.D. 03/08/2019 F41.1 Generalized anxiety disorder Anish Henriquez M.D. 03/08/2019 M17.0 Bilateral primary osteoarthritis of knee Anish Henriquez M.D. 03/08/2019 E66.01 Morbid (severe) obesity due to excess Anish Henriquez M.D. calories Plan of Treatment Future Appointment(s):10/21/2019 1:00 pm - Anish Henriquez M.D. at Main [facility]/29/2019 - Anish Henriquez M.D.L03.115 Cellulitis of right lower limbNew Medication:Doxycycline Hyclate 100 mg - 1 by mouth twice a dayLevofloxacin 500 mg - 1 by mouth every dayComments:stop cephalexin since it is not helping the cellulitis. Starty levofloxacin and doxycycline. OK to dress wound w/ neosporin. Keep leg elevated. OK to leave open to the air for periods of time. Send pictures via portal to keep me updated on progressFollow up:Followup:. (Follow up)E11.9 Type 2 diabetes mellitus without complications Functional Status Description No Information Available Mental Status Description No Information Available Referrals Description No Information Available
--- OUTSIDE RECORDS SUMMARY | 2019-08-31 22:34 | XMS REPORT | Continuity of Care Document ---
:1970 External Reference #:[id number] Author Name Anish Henriquez M.D. Address [address] [place] [address] Care Team Providers Name Role Phone [facility] [place] [facility] - Sleep Disorder Care Team Information Pick Pack Worker [phone] Diagnostic Zaire Mason - Endocrinology, Diabetes & Care Team Information Pick Pack Worker Metabolism Anish Henriquez - Family Medicine Care Team Information Pick Pack Worker [phone] [facility] [place] Wound Clinic - Clinic/Center Care Team Information Pick Pack Worker Problems Active Problems Provider Date Type 2 diabetes mellitus Onset: 10/25/2008 Hypothyroidism Maria L Cisneros M.D. Onset: 07/07/2011 Benign essential hypertension Maria L Cisneros M.D. Onset: 07/07/2011 Generalized anxiety disorder Maria L Cisneros M.D. Onset: 07/07/2011 Disorder of kidney and/or ureter Maria L Cisneros M.D. Onset: 08/18/2011 Malaise and [...] Medications SIG Qnty Indications Ordering Date Provider Albuterol Sulfate HFA Inhale 2 Puffs By [...] Anish Luna 08/04/19 45mg mouth once daily Desi HenriquezDRita 19 Tablets Fluoxetine HCL 3 by mouth every 270caps F41.1 Anish TRita 06/23/19 20mg day Desi HenriquezDRita 18 Capsules Lantus Solostar inject 60 units 75units Anish TRita 05/07/20 100Unit/ML subcutaneously In Desi HenriquezDRita 17 Solution Pen-Inject Am And Adjust Evening Dose According To Glucose Readings Imodium A-D 1 by mouth qhs Unknown 05/21/20 2mg Tablets 16 Levothyroxine Sodium take 1 tablet by 90tabs Anish Luna 05/05/20 300mcg mouth once daily Robert Henriquez 16 Tablets Vitamin D 1 by mouth bid Family 06/06/19 2000Unit Tablets Medicine 15 [facility] Oxycodone-Acetaminophen 1 by mouth every 6 30tabs Anish Luna 06/06/19 hours as needed Robert Henriquez 15 7.5-325mg Tablets pain Pen [place] 31G X 5/16" use twice a day w/ 180units Gerardo TRita 05/10/20 lantus pen MD Sharon 13 31GX5/16 Misc Lorazepam 1 twice a day as 40tabs Anish TRita 06/29/19 0.5mg Tablets needed anxiety Robert Henriquez 13 Metformin HCL take 1 tablet 2 180tabs E11.9 Anish TRita 07/25/19 1000mg times a day. Robert Henriquez 12 Tablets Lisinopril take 1 tablet by 90tabs I10 Anish TRita 07/07/19 2.5mg Tablets mouth once daily Robert Henriquez 12 Protopic apply twice a day 100gm Anish Luna 01/16/20 0.1% Ointment Robert Henriquez 10 Dovonex apply twice a day 120gm Anish Luna 01/16/20 0.005% Cream Robert Henriquez 10 Bee 1 po qd 90tabs Maria L Rita 10/26/19 180mg Tablets Robert Cisneros 09 Centrum 1 po qd 1bottle [facility] 10/26/19 Tablets Medicine 09 [facility] Zinc 1 po qd [facility] 10/26/19 50mg Tablets Medicine 09 [facility] Magnesium 1 po qd [facility] 10/26/19 250mg Tablets Medicine 09 [facility] Clobetasol Propionate as directed 30gm Anish Luna 10/26/19 0.05% Robert Henriquez 09 Cream Diclofenac-Misoprostol Take 1 Tablet By 180tabs Anish Luna 10/26/19 Mouth Twice Daily Robert Henriquez 09 75-0.2mg Tablets as Needed Zyrtec Allergy 1 po qd/ otc/ prn 30caps Unknown 10mg 00 Capsules Immunizations CPT Code Status Date Vaccine Reaction Lot # 15855 Given 05/29/2015 Influenza Vac, Quadrivalent, [id number] [address] Given 02/01/2014 DO Not Use Split Influenza Virus [id number] Vaccine 96984 Given 02/04/2013 DO Not Use Split Influenza Virus [id number] Vaccine 22286 Given 03/02/2012 DO Not Use Split Influenza Virus no reaction noted [id number] Vaccine 85444 Given 03/14/2011 DO Not Use Split Influenza Virus Vaccine 46439 Given 01/09/2009 Tdap Tetanus, W Pertussis [id number] Vital Signs Date Vital Result Comment 07/11/2019 4:24pm BP Systolic 128 mmHg BP Diastolic 82 mmHg Heart Rate 68 /min Body Temperature 97.9 F Respiratory Rate 18 /min 03/08/2019 5:16pm BP Systolic 126 mmHg BP Diastolic 70 mmHg Heart Rate 86 /min Body Temperature 98.1 F Respiratory Rate 20 /min Results Test Acquired Date Facility Test Result H/L Range Note Laboratory test 07/11/2019 [facility] Hemoglobin A1c 6.5 % % High 4.1-5.7 finding (607)- - (Fma) Laboratory test 03/08/2019 [facility] Hemoglobin A1c 7.1% % High 4.1 -5.7 finding (607)- - (a) Comprehensive 03/08/2019 [facility]) Sodium 139 mEq/L 134-149 Metabolic Prof Potassium [...] >=60 Procedures Date Code Description Status 07/11/2019 63751 Finger Or Heel Stick Completed 06/29/2019 [id number] Diabetic Retinal Eye Exam Completed 03/04/2013 [id number] Mammogram Completed Medical Devices Description No Information Available Encounters Type Date Location Provider Dx Diagnosis Office Visit 08/25/2019 10:20a Main Office Anish Henriquez M.D. R11.0 Nausea R50.9 Fever, unspecified I10 Essential (primary) hypertension E11.9 Type 2 diabetes mellitus without complications Office Visit 07/11/2019 4:20p Main Office Nimisha Escalante0 Essential ( primary) M.D. hypertension E11.9 Type 2 diabetes mellitus without complications F34.1 Dysthymic disorder E03.8 Other specified hypothyroidism F41.1 Generalized anxiety disorder M17.0 Bilateral primary osteoarthritis of knee E66.01 Morbid (severe) obesity due to excess calories Office Visit 03/08/2019 5:20p Main Office Nimisha Escalante0 Essential ( primary) M.D. hypertension E11.9 Type 2 diabetes mellitus without complications F34.1 Dysthymic disorder E03.8 Other specified hypothyroidism F41.1 Generalized anxiety disorder M17.0 Bilateral primary osteoarthritis of knee E66.01 Morbid (severe) obesity due to excess calories Assessments Date Code Description Provider 08/25/2019 R11.0 Nausea Anish Henriquez M.D. 08/25/2019 R50.9 Fever, unspecified Anish Henriquez M.D. 08/25/2019 I10 Essential (primary) hypertension Anish Henriquez M.D. 08/25/2019 E11.9 Type 2 diabetes mellitus without complications Anish Henriquez M.D. 07/11/2019 I10 Essential (primary) hypertension Anish Henirquez M.D. 07/11/2019 E11.9 Type 2 diabetes mellitus without complications Anish Henriquez M.D. 07/11/2019 F34.1 Dysthymic disorder Anish Henriquez M.D. 07/11/2019 E03.8 Other specified hypothyroidism Anish Henriquez M.D. 07/11/2019 F41.1 Generalized anxiety disorder Anish Henriquez M.D. 07/11/2019 M17.0 Bilateral primary osteoarthritis of knee Anish Henriquez M.D. 07/11/2019 E66.01 Morbid (severe) obesity due to excess calories Anish Henriquez M.D. 03/08/2019 I10 Essential (primary) hypertension Anish Henriquez M.D. 03/08/2019 E11.9 Type 2 diabetes mellitus without complications Anish Henriquez M.D. 03/08/2019 F34.1 Dysthymic disorder Anish Henriquez M.D. 03/08/2019 E03.8 Other specified hypothyroidism Anish Henriquez M.D. 03/08/2019 F41.1 Generalized anxiety disorder Anish Henriquez M.D. 03/08/2019 M17.0 Bilateral primary osteoarthritis of knee Anish Henriquez M.D. 03/08/2019 E66.01 Morbid (severe) obesity due to excess calories Anish Henriquez M.D. Plan of Treatment Future Appointment(s):10/21/2019 1:00 pm - Anish Henriquez M.D. at Main [facility]8/25/2019 - Anish Henriquez M.D.R11.0 NauseaComments:Observation for further symptoms, especially respiratory symptoms and recurrent fever. Advised to self quarantine for now and increase fluids, rest. If respiratory symptoms and fever develop then do not go to work and encouraged to get COVID-19 testing.R50.9 Fever, [id number] Essential (primary) pdemjluiocbkY10.9 Type 2 diabetes mellitus without complications Functional Status Description No Information Available Mental Status Description No Information Available Referrals Description No Information Available
--- OUTSIDE RECORDS SUMMARY | 2019-08-31 22:34 | XMS REPORT | Continuity of Care Document ---
:1970 External Reference #:[id number] Author Name Anish Henriquez M.D. Address [address] [place] [address] Care Team Providers Name Role Phone [facility] - Sleep Disorder Care Team Information Credit Specialist [phone] Diagnostic [place] Mason - Endocrinology, Diabetes & Care Team Information Credit Specialist [phone] Metabolism Anish Henriquez - Family Medicine Care Team Information Credit Specialist [phone] [facility] - Clinic/Center Care Team Information Credit Specialist Problems Active Problems Provider Date Type 2 [...] L03.115 Anish Luna 08/29/19 500mg Tablets day Robert Henriquez 20 Diflucan 1 by mouth now. 4tabs L03.115 Tressa Ann 08/26/19 200mg Tablets repeat in one week Robert [...] HCL take 1 tablet by 90tabs Anish TRita 08/04/19 45mg mouth once daily Robert Henriquez 19 Tablets Fluoxetine HCL 3 by mouth every 270caps F41.1 Anish TRita 06/23/19 20mg day Robert Henriquez 18 Capsules Lantus Solostar inject 60 units 75units Anish TRita 05/07/20 100Unit/ML subcutaneously In Robert Henriquez 17 Solution Pen-Inject Am And Adjust Evening Dose According To Glucose Readings Imodium A-D 1 by mouth qhs Unknown 05/21/20 2mg Tablets 16 Levothyroxine Sodium take 1 tablet by 90tabs Anish Luna 05/05/20 300mcg mouth once daily Robert Henriquez 16 Tablets Vitamin D 1 by mouth bid Family 06/06/19 2000Unit Tablets Medicine 15 [facility] Oxycodone-Acetaminophen 1 by mouth every 6 30tabs Anish Luna 06/06/19 hours as needed Robert Henriquez 15 7.5-325mg Tablets pain Pen [place] 31G X 516" use twice a day w/ 180units Gerardo Luna 05/10/20 lantus alicia Herrera MD 13 31GX5/16 Mis Lorazepam 1 twice a day as 40tabs [...] Cisneros 09 Centrum 1 po qd 1bottle Family 10/26/19 Tablets Medicine 09 [facility] Zinc 1 po qd [facility] 10/26/19 50mg Tablets Medicine 09 [facility] Magnesium 1 po qd [facility] 10/26/19 250mg Tablets Medicine 09 [facility] Clobetasol Propionate as directed 30gm Anish Luna [...] Code Status Date Vaccine Reaction Lot # 76792 Given 05/29/2015 Influenza Vac, Quadrivalent, [id number] [place] [address] Given 02/01/2014 DO Not Use Split Influenza Virus [id number] Vaccine 04109 Given 02/04/2013 DO Not Use Split Influenza Virus [id number] Vaccine 06227 Given 03/02/2012 DO Not Use Split Influenza Virus no reaction noted [id number] Vaccine 34475 Given 03/14/2011 DO Not Use Split Influenza Virus Vaccine 61411 Given 01/09/2009 Tdap Tetanus, W Pertussis [id number] Vital Signs Date Vital Result Comment 07/11/2019 4:24pm BP Systolic 128 mmHg BP Diastolic 82 mmHg Heart Rate 68 /min Body Temperature 97.9 F Respiratory Rate 18 /min 03/08/2019 5:16pm BP Systolic 126 mmHg BP Diastolic 70 mmHg Heart Rate 86 /min Body Temperature 98.1 F Respiratory Rate 20 /min Results Test Acquired Date Facility Test Result H/L Range Note Laboratory test 07/11/2019 [facility] Hemoglobin A1c 6.5 % % High 4.1-5.7 finding (607)- - (Fma) Laboratory test 03/08/2019 [facility] Hemoglobin A1c 7.1% % High 4.1 -5.7 finding (607)- - (Fma) Comprehensive 03/08/2019 [facility](a) Sodium 139 mEq/L [...] >=60 Procedures Date Code Description Status 07/11/2019 62281 Finger Or Heel Stick Completed 06/29/2019 [id number] Diabetic Retinal Eye Exam Completed 03/04/2013 [id number] Mammogram Completed Medical Devices Description No Information Available Encounters Type Date Location Provider Dx Diagnosis Office Visit 08/29/2019 Main Office Anish Henriquez, L03.115 Cellulitis of right 2:20p M.DRita lower limb E11.9 Type 2 diabetes mellitus without complications Office Visit 08/26/2019 1:20p [facility] Tressa Rodrigues03.115 Cellulitis of Robert Ibrahim right lower limb Office Visit 08/25/2019 10:20a Main Office Anish Henriquez, R11.0 Nausea M.DRita R50.9 Fever, unspecified I10 Essential (primary) hypertension [...] pm - Anish Henriquez M.D. at Main [facility]2108/29/2019 - Anish Henriquez M.D.L03.115 Cellulitis of right [...]
[2019-08-31] MEDS ORDERED: Albuterol HFA INHALER* 8 gm MDI INH PRN (22:56)
[2019-08-31] MEDS ORDERED: Cetirizine* 10 MG TAB PO PRN (22:56)
[2019-08-31] MEDS ORDERED: Dextrose 50% Syringe 50 ML* 25 GM/50 ML SYRINGE IV PUSH PRN ×2 (22:59→23:00)
[2019-08-31 23:02] LABS: Mean Platelet Volume 9.1 fL (7.4-10.4); Platelet Count 349 10^3/uL (150-450)
[2019-08-31] MEDS ORDERED: NS 0.9% 1000 ML** 1,000 ML IV SCH (23:15)
[2019-08-31] MEDS ORDERED: Vancomycin per Pharmacy* NOTE FOLLOW UP SCH (23:45)
--- NOTE | 2019-08-31 23:51 | HP ---
History of Present Illness - History of Present Illness Reason for Visit: Right Leg Wound History of Present Illness: This is a 48 M with PMH significant for Insulin Dependent Diabetes, Hypertension , Morbid Obesity(BMI 80), Hypothyroidism, Depression, Chronic Idiopathic Urticaria presented with Right leg redness and pain. According to patient, she was on her usual state of health then she noticed fever with chills and sweating. Maximum recorded temperature was 103 F. Then 2 days later she started noticing redness and pain on her right leg with extended from right knee to ankle. SHe also had nausea, vomiting and loss of appetite. Then she went to her PCP and was given Keflex. Even after starting antibiotic her symptoms did not get better but instead was worsening. SHe developed blisters and bullae which started draining serous fluid. She again saw her PCP and her antibiotic was changed to Doxycycline and Levofloxacin on 08/29/2019. She states that her leg wound bad yesterday but today is little better than before. She was concerned about the redness and pain and that is why she came to ED. She denies chest pain , cough, SOB, abdominal pain. 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 ED Course In ED, she was tachycardic and hypertensive but afebrile and saturating normally in room air. Blood work showed leucocytosis, Anemia, elevated CRP, hyponatremia, elevated glucose and elevated creatinine.. Venous doppler was negative for DVT. - Past Medical History Past Medical History: 1. Insulin dependent Diabetes 2. Hypertension 3. Hypothyroidism 4. Depression 5. Morbid Obesity 6. PCOS 7. CHronic Idiopathic Urticaria 8. History of MRSA cellulitis - Past Surgical History Past Surgical History: 1. Ruptured ovarian cyst requiring exp laparotomy 2. Lap cholecystectomy 3. Lithotripsy with stent - Past Family History Past Family History: Mother has diabetes, hypothyroidism and GI polyp. Maternal Grandmother had Colon cancer. - Past Social History Past Social History: Patient lives alone and is athletics teacher at [employer]. She denies tobacco, alcohol and recreational drug use. Her HCP is her significant other-Neelima Stauffer. She is full code. Medications: Home Medications Medication Instructions Recorded Confirmed Type Fexofenadine (NF) [Bee 180 180 mg PO DAILY PRN 04/28/14 08/31/19 History (NF)] Ibuprofen TAB* [Advil TAB*] 200 mg PO Q6H PRN 04/28/14 08/31/19 History Lisinopril TAB* [Prinivil TAB 5 2.5 mg PO DAILY 04/28/14 08/31/19 History MG*] Albuterol HFA INHALER* [Ventolin 2 puff INH Q4H PRN 08/31/19 08/31/19 History HFA Inhaler*] DOXYcycline CAP(*) [DOXYcycline 100 mg PO BID 08/31/19 08/31/19 History 100MG CAP(*)] Diclofenac Sodium/Misoprostol 1 tab PO BID 08/31/19 08/31/19 History [Diclofenac Sodium/Misopro] FLUoxetine CAP* [PROzac CAP*] 60 mg PO DAILY 08/31/19 08/31/19 History Insulin Glargine,Hum.rec.anlog 60 units SUBCUT Daily 08/31/19 08/31/19 History [Lantus Solostar 100 units/ml 3 ml x 5 PENS] Levofloxacin TAB* [Levaquin TAB*] 500 mg PO DAILY 08/31/19 08/31/19 History Levothyroxine TAB* [Synthroid TAB*] 300 mcg PO DAILY 08/31/19 08/31/19 History Pioglitazone TAB* [Actos TAB*] 45 mg PO DAILY 08/31/19 08/31/19 History metFORMIN* [Glucophage 1000 MG TAB 1,000 mg PO BID 08/31/19 08/31/19 History *] Allergies/Adverse Reactions: Allergies Allergy/AdvReac Type Severity Reaction Status Date / Time bumetanide Allergy Hives Verified 08/31/19 20:49 ciprofloxacin [From Cipro] Allergy Hives Verified 08/31/19 20:49 clindamycin Allergy Hives Verified 08/31/19 20:49 hydrochlorothiazide Allergy Hives Verified 08/31/19 20:49 nitrofurantoin Allergy Hives Verified 08/31/19 20:49 [From Macrobid] Penicillins Allergy Hives Verified 08/31/19 20:49 Sulfa (Sulfonamide Allergy Hives Verified 08/31/19 20:49 Antibiotics) Fallon Bees Body oil Allergy Hives Uncoded 08/31/19 20:49 Cheer detergent Allergy Hives Uncoded 08/31/19 20:49 poison telma Allergy Hives Uncoded 08/31/19 20:49 ragweed Allergy Congestion Uncoded 08/31/19 20:49 Review of Systems - Review of Systems Constitutional: Positive: Fever, Chills. Negative: Sweats, Weakness, Malaise, Other Eyes: Negative: Pain, Vision Change, Conjunctivae Inflammation, Eyelid Inflammation, Redness, Other ENT: Negative: Ear Pain, Ear Discharge, Nose Pain, Nose Discharge, Nose Congestion, Mouth Pain, Mouth Swelling, Throat Pain, Throat Swelling, Other Respiratory: Negative: Cough, Dry, Shortness of Breath, Hemoptysis, SOB with Excertion, Pleuritic Pain, Sputum, Wheezing Cardiovascular: Negative: Chest Pain, Palpitations, Orthopnea, Paroxysmal Noc. Dyspnea, Edema, Light Headedness, Other Gastrointestinal: Positive: Nausea, Vomiting. Negative: Abdominal Pain, Diarrhea, Constipation, Melena, Hematochezia, Other Genitourinary: Negative: Dysuria, Frequency, Incontinence, Hematuria, Retention , Other Musculoskeletal: Positive: Leg Pain. Negative: Neck Pain, Shoulder Pain, Arm Pain, Back Pain, Hand Pain, Foot Pain, Other Skin: Positive: Rash. Negative: Lesions, Juan, Bruising, Other Neurological/Mental Status: Negative: Weakness, Numbness, Incoordination, Change in Speech, Confusion, Seizures, Other Exam Vital Signs: Vital Signs (72 hours) 08/31/19 08/31/19 08/31/19 20:39 20:44 21:28 Temperature 98.3 F Pulse Rate 101 Respiratory 18 16 Rate Blood Pressure 166/64 166/64 (mmHg) O2 Sat by Pulse 98 Oximetry 08/31/19 08/31/19 08/31/19 21:38 21:40 22:00 Temperature Pulse Rate 95 92 87 Respiratory Rate Blood Pressure 158/62 (mmHg) O2 Sat by Pulse 97 96 98 Oximetry 08/31/19 08/31/19 22:09 22:38 Temperature Pulse Rate 87 86 Respiratory Rate Blood Pressure 154/76 146/70 (mmHg) O2 Sat by Pulse 98 97 Oximetry Exam: GENERAL APPEARANCE: well-nourished obese female in no acute distress. HEENT: Normocephalic and atraumatic. No scleral icterus. Pupils are equal, round , and reactive to light and accommodation NECK: Supple. Trachea is midline. No evidence of thyroid enlargement. No lymphadenopathy or tenderness. CHEST: Symmetric. Nontender to palpation. LUNGS: Breath sounds are equal bilaterally. No added sounds HEART: Regular rhythm.normal S1 and S2. No murmurs, gallops, or rubs. ABDOMEN: Soft, morbidly obese. Coarse skin with chronic changes seen. Lower abdominal fold is moist. Nontender. EXTREMITIES: Erythema on right leg extending from right knee to right feet with bullae and draining serous fluid. No fluctuance noted. tenderness present. Distal pulse intact. NEUROLOGIC: No focal sensory or motor deficits are noted. Cranial nerves II through XII are intact. Deep tendon reflexes are intact. Result Diagrams: 08/31/19 22:56 08/31/19 21:27 Assessment/Plan - Assessment/Plan Assessment: This is 48 F with PMH significant for IDDM, HTN, Morbid obesity with BMI 80 presented with RIght leg redness, pain and drainage associated with bullae formation. SHe was found to be in sepsis(met SIRS criteria with tachycardia and leucocytosis) and source being Cellulitis. Plan: 1. Sepsis - met SIRS criteria as above -Etiology: Right Leg cellulitis- non purulent -D/D: Abscess, Erysipleas, DVT, Impetigo - Received bolus IVF, vanco and ceftriaxone in ED. -We will give her maintenance fluid -Given her past history of MRSA cellulitis and failed outpatient abx we will cover her broadly with vancomycin and ceftriaxone- to cover Gram positive and also Gram negative. -No evidence of abscess formation at present. 2. IDDM - According to patient, her A1c was around 6 in jun 2019 - We will send A1c. -COntinue Insulin lantus 60U daily and will stop Metformin and Pioglitazone and cover her with Insulin lispro. 3. Anemia -Normocytic Anemia -Will send Iron studies; given family history of colon cancer patient will need Colonoscopy as outpatient 4. Elevated Creatinine -No history of CKD -Slight elevation- likely Pre-renal from sepsis -Will send urine studies and give IVF 5. Hypertension -Given her elevated Creatinine and sepsis we will hold her Lisinopril at present. -If her BP remains high and creatinine improves it can be restarted. 6. Depression -on Fluoxetine 7. Chronic Urticaria -On fexofenadine 8. DVT prophylacis -Lovenox 9. Full code
[2019-09-01] MEDS ORDERED: Vancomycin(*) 1,500 MG in NS 0.9% 250 ML* 250 ML IVPB ONE (00:30)
[2019-09-01] MEDS: Enoxaparin(*) 40 MG/0.4 ML SYR SUBCUT SCH ×2 (02:15→23:01)
[2019-09-01] MEDS: Insulin LISPRO* 1 UNITS UNIT SUBCUT SCH ×7 (02:29→18:03)
[2019-09-01 04:25] LABS: Hematocrit 30 % (35-47); Mean Corpuscular HGB Conc 33 g/dL (31-36); Mean Corpuscular Hemoglobin 30 pg (27-31); Mean Corpuscular Volume 91 fL (80-97); Mean Platelet Volume 9.2 fL (7.4-10.4); Platelet Count 360 10^3/uL (150-450); Red Blood Count 3.33 10^6 /uL (3.70-4.87); Red Cell Distribution Width 15 % (10-15); White Blood Count 19.2 10^3/uL (3.5-10.8)
[2019-09-01 04:40] LABS: Anion Gap 9 mmol/L (2-11); BUN/Creatinine Ratio 28.1 (8-20); Blood Urea Nitrogen 32 mg/dL (6-24); CO2 Carbon Dioxide 23 mmol/L (22-32); Calcium 8.3 mg/dL (8.6-10.3); Chloride 103 mmol/L (101-111); EGFR African American 61.8 (>60); EGFR Non-African American 51.1 (>60); Glucose 156 mg/dL (70-100); Potassium 3.8 mmol/L (3.5-5.0); Sodium 135 mmol/L (135-145)
[2019-09-01 04:56] LABS: % Iron Saturation 18 % (15-55); Iron 36 ug/dL (50-212); Total Iron Binding Capacity 199 mcg/dL (250-450); Transferrin 142 mg/dL (203-362)
[2019-09-01 05:16] LABS: Ferritin 226.5 ng/mL (11-307)
[2019-09-01 05:19] LABS: ABS Basophils 0.1 10^3/ul (0-0.2); ABS Eosinophils 0.3 10^3/ul (0-0.6); ABS Lymphocytes 2.1 10^3/ul (1.0-4.8); ABS Neutrophils 14.7 10^3/ul (1.5-7.7); Eosinophil % 1.8 %; Lymphocyte % 11.1 %
[2019-09-01] MEDS: Levothyroxine TAB* 100 MCG TAB PO SCH (06:00)
[2019-09-01] MEDS: FLUoxetine CAP* 20 MG PO SCH (08:03)
[2019-09-01] MEDS ORDERED: Lisinopril TAB* 5 MG PO SCH (09:00)
[2019-09-01] MEDS: Insulin GLARGINE(*) 1 UNITS UNIT SUBCUT SCH (09:02)
[2019-09-01] MEDS: Nystatin TOP POWDER* 15 GM BTL TOPICAL SCH ×3 (11:18→21:58)
--- NOTE | 2019-09-01 11:36 | PN ---
Subjective Date of Service: 09/01/19 Interval History: Ms. Taveras is still feeling poor today. She is emotional because of RLE pain and just from being in the hospital. She has had cellulitis a number of times and it has always cleared up easily with oral antibiotics. Pain is not worse than it has been the last few days. She has never had peeling skin like she does now. Denies CP, SOB, cough. She feels very thirsty and thinks IVF are helping. Nursing reports patient is c/o pain and requesting home pain medications. Family History: Unchanged from Admission Social History: Unchanged from Admission Past Medical History: Unchanged from Admission Objective Active Medications: Albuterol (Ventolin Hfa Inhaler*) 2 puff INH Q4H PRN SHORTNESS OF BREATH Cetirizine HCl (Zyrtec*) 10 mg PO DAILY PRN; Protocol Allergy Symptoms Dextrose (D50w Syringe 50 Ml*) 12.5 gm IV PUSH .FOR FS < 60 - SS PRN FS < 60 Enoxaparin Sodium (Lovenox(*)) 40 mg SUBCUT Q24H VITO Fluoxetine HCl (Prozac Cap*) 60 mg PO DAILY VITO Ceftriaxone Sodium 2 gm/ (Sodium Chloride) 100 mls @ 200 mls/hr IVPB Q24H VITO Vancomycin HCl 1,500 mg/ (Sodium Chloride) 250 mls @ 166.667 mls/hr IVPB Q12H VITO Insulin Glargine (Lantus(*)) 48 units SUBCUT DAILY VITO Insulin Human Lispro (Humalog*) 0 units SUBCUT AC VITO; Protocol Insulin Human Lispro (Humalog*) 0 units SUBCUT AC VITO; Protocol Levothyroxine Sodium (Synthroid Tab*) 300 mcg PO DAILY@0600 VITO Nystatin (Nystatin Top Powder*) 1 applic TOPICAL TID VITO Oxycodone/Acetaminophen (Percocet 5/325 Tab*) 1 tab PO Q4H PRN PAIN - SEVERE Vital Signs - 8 hr 09/01/19 09/01/19 09/01/19 03:36 07:15 08:00 Temperature 97.8 F Pulse Rate 73 Respiratory 18 16 20 Rate Blood Pressure 122/38 (mmHg) O2 Sat by Pulse 95 Oximetry Oxygen Devices in Use Now: None Appearance: Middle-aged female sitting in bed in NAD Ears/Nose/Mouth/Throat: Mucous Membranes Moist Neck: NL Appearance and Movements; NL JVP, Trachea Midline Respiratory: Symmetrical Chest Expansion and Respiratory Effort, Clear to Auscultation Cardiovascular: NL Sounds; No Murmurs; No JVD, RRR Abdominal: NL Sounds; No Tenderness; No Distention Extremities: - - RLE erythema and skin sloughing, multiple small bulla, no obvious edema Neurological: Alert and Oriented x 3 Lines/Tubes/Other Access: Clean, Dry and Intact Peripheral IV Nutrition: Taking PO's Result Diagrams: 09/01/19 04:09 09/01/19 04:09 Assess/Plan/Problems-Billing Assessment: Ms. Taveras is a 48 yo F with PMH of DM, HTN, hypothyroidism, morbid obesity, depression, MRSA cellulitis; presented to the ED with c/o RLE redness and was found to have sepsis secondary to RLE cellulitis. - Patient Problems (1) Cellulitis of right leg Code(s): L03.115 - CELLULITIS OF RIGHT LOWER LIMB Comment: - History of MRSA cellulitis - Symptoms beginning one week prior to admission; failed outpatient therapy on cephalexin and Levaquin/doxy - RLE with significant erythema and skin sloughing, multiple fluid filled blisters, no obvious purulence - US negative for DVT - Attempt to obtain wound culture today - Continue ceftriaxone, vanco (2) Sepsis Comment: - Present on admission with tachycardia and leukocytosis; source is cellulitis - Normal lactic and stable BPs - Plan as above (3) IDDM (insulin dependent diabetes mellitus) Code(s): E11.9 - TYPE 2 DIABETES MELLITUS WITHOUT COMPLICATIONS; Z79.4 - [facility] (CURRENT) USE OF INSULIN Comment: - A1c pending - Continue Lantus, Lispro SS and carb coverage (4) Anemia Code(s): D64.9 - ANEMIA, UNSPECIFIED Comment: - Normocytic and chronic, consistent with baseline - No evidence of iron deficiency (5) Hypertension Code(s): I10 - ESSENTIAL (PRIMARY) HYPERTENSION Comment: - SBP 160s, likely elevated d/t pain - Resume lisinopril (6) Depression with anxiety Comment: - Continue fluoxetine (7) Hypothyroidism Code(s): E03.9 - HYPOTHYROIDISM, UNSPECIFIED Comment: - Continue levothyroxine (8) DVT prophylaxis Comment: - Lovenox (9) Full code status Code(s): Z78.9 - OTHER SPECIFIED HEALTH STATUS Comment: Status and Disposition: Inpatient. Anticipate d/c home when medically stable, pending clinical course. Attending: Renee Carvalho
[2019-09-01] MEDS: oxyCODONE/Acetamin 5/325 MG* TAB PO PRN ×3 (12:17→20:58)
[2019-09-01] MEDS: Lisinopril TAB* 5 MG PO SCH (12:18)
[2019-09-01] MEDS: Vancomycin(*) 1,500 MG in NS 0.9% 250 ML* 250 ML IVPB SCH ×2 (12:59→23:02)
[2019-09-01 16:01] LABS: Urine Creatinine Concentration 89.18 mg/dL
[2019-09-01] MEDS: cefTRIAXone(*) 2 GM in NS 0.9% 100 ML* 100 ML IVPB SCH (21:01)
[2019-09-02] MEDS: oxyCODONE/Acetamin 5/325 MG* TAB PO PRN ×6 (01:40→23:43)
[2019-09-02] MEDS: Levothyroxine TAB* 100 MCG TAB PO SCH (06:09)
[2019-09-02 06:27] LABS: Hematocrit 31 % (35-47); Mean Corpuscular HGB Conc 33 g/dL (31-36); Mean Corpuscular Hemoglobin 30 pg (27-31); Mean Corpuscular Volume 92 fL (80-97); Mean Platelet Volume 9.2 fL (7.4-10.4); Platelet Count 352 10^3/uL (150-450); Red Blood Count 3.33 10^6 /uL (3.70-4.87); Red Cell Distribution Width 15 % (10-15); White Blood Count 20.1 10^3/uL (3.5-10.8)
[2019-09-02 06:38] LABS: BUN/Creatinine Ratio 23.6 (8-20); Calcium 8.5 mg/dL (8.6-10.3); EGFR African American 64.4 (>60); EGFR Non-African American 53.2 (>60); Potassium 4.1 mmol/L (3.5-5.0)
[2019-09-02 08:22] LABS: ABS Basophils 0.1 10^3/ul (0-0.2); ABS Eosinophils 0.5 10^3/ul (0-0.6); ABS Monocytes 2.3 10^3/ul (0-0.8); ABS Neutrophils 15.2 10^3/ul (1.5-7.7); Eosinophil % 2.6 %; Lymphocyte % 9.9 %; Nucleated Red Blood Cells % 0.1
[2019-09-02] MEDS: Insulin GLARGINE(*) 1 UNITS UNIT SUBCUT SCH (08:33)
[2019-09-02] MEDS: Insulin LISPRO* 1 UNITS UNIT SUBCUT SCH ×6 (08:34→18:19)
[2019-09-02] MEDS: Lisinopril TAB* 5 MG PO SCH (08:35)
[2019-09-02] MEDS: FLUoxetine CAP* 20 MG PO SCH (08:35)
[2019-09-02] MEDS: Nystatin TOP POWDER* 15 GM BTL TOPICAL SCH ×3 (08:41→21:25)
[2019-09-02] MEDS ORDERED: Vancomycin Trough Check NOTE FOLLOW UP ONE (10:30)
[2019-09-02] MEDS: Vancomycin(*) 1,500 MG in NS 0.9% 250 ML* 250 ML IVPB SCH (11:11)
--- NOTE | 2019-09-02 11:25 | PN ---
Subjective Date of Service: 09/02/19 Interval History: Ms. Taveras is feeling a little better today. Pain is somewhat improved. She thinks the redness may be slightly decreased, but not significantly so. She is feeling emotional about being in the hospital. Denies CP, SOB, cough. No concerns from nursing. Family History: Unchanged from Admission Social History: Unchanged from Admission Past Medical History: Unchanged from Admission Objective Active Medications: Albuterol (Ventolin Hfa Inhaler*) 2 puff INH Q4H PRN SHORTNESS OF BREATH Cetirizine HCl (Zyrtec*) 10 mg PO DAILY PRN; Protocol Allergy Symptoms Dextrose (D50w Syringe 50 Ml*) 12.5 gm IV PUSH .FOR FS < 60 - SS PRN FS < 60 Enoxaparin Sodium (Lovenox(*)) 40 mg SUBCUT Q24H VITO Fluoxetine HCl (Prozac Cap*) 60 mg PO DAILY VITO Ceftriaxone Sodium 2 gm/ (Sodium Chloride) 100 mls @ 200 mls/hr IVPB Q24H VITO Vancomycin HCl 1,500 mg/ (Sodium Chloride) 250 mls @ 166.667 mls/hr IVPB Q12H VITO Insulin Glargine (Lantus(*)) 48 units SUBCUT DAILY VITO Insulin Human Lispro (Humalog*) 0 units SUBCUT AC VITO; Protocol Insulin Human Lispro (Humalog*) 0 units SUBCUT AC VITO; Protocol Levothyroxine Sodium (Synthroid Tab*) 300 mcg PO DAILY@0600 VITO Lisinopril (Prinivil Tab*) 5 mg PO DAILY VITO Nystatin (Nystatin Top Powder*) 1 applic TOPICAL TID VITO Oxycodone/Acetaminophen (Percocet 5/325 Tab*) 1.5 tab PO Q4H PRN PAIN - SEVERE Vital Signs - 8 hr 09/02/19 09/02/19 09/02/19 03:44 05:03 06:09 Temperature 97.5 F Pulse Rate 87 Respiratory 18 16 16 Rate Blood Pressure 129/56 (mmHg) O2 Sat by Pulse 97 Oximetry 09/02/19 09/02/19 09/02/19 08:41 08:42 10:42 Temperature 98.7 F Pulse Rate 83 Respiratory 18 18 18 Rate Blood Pressure 147/50 (mmHg) O2 Sat by Pulse 96 Oximetry Oxygen Devices in Use Now: None Appearance: Middle-aged female lying in bed in NAD Ears/Nose/Mouth/Throat: Mucous Membranes Moist Neck: NL Appearance and Movements; NL JVP, Trachea Midline Respiratory: Symmetrical Chest Expansion and Respiratory Effort, Clear to Auscultation Cardiovascular: NL Sounds; No Murmurs; No JVD, RRR Abdominal: NL Sounds; No Tenderness; No Distention Skin: - - Erythema and skin sloughing to RLE Neurological: Alert and Oriented x 3 Lines/Tubes/Other Access: Clean, Dry and Intact Peripheral IV Nutrition: Taking PO's Result Diagrams: 09/02/19 05:56 09/02/19 05:56 Assess/Plan/Problems-Billing Assessment: Ms. Taveras is a 48 yo F with PMH of DM, HTN, hypothyroidism, morbid obesity, depression, MRSA cellulitis; presented to the ED with c/o RLE redness and was found to have sepsis secondary to RLE cellulitis. - Patient Problems (1) Cellulitis of right leg Code(s): L03.115 - CELLULITIS OF RIGHT LOWER LIMB Comment: - History of MRSA cellulitis - Symptoms beginning one week prior to admission; failed outpatient therapy on cephalexin and Levaquin/doxy - RLE with significant erythema and skin sloughing, multiple fluid filled blisters, no obvious purulence - Wound culture pending - US negative for DVT - Continue ceftriaxone, vanco (2) Sepsis Comment: - Present on admission with tachycardia and leukocytosis; source is cellulitis - Normal lactic and stable BPs - Plan as above (3) IDDM (insulin dependent diabetes mellitus) Code(s): E11.9 - TYPE 2 DIABETES MELLITUS WITHOUT COMPLICATIONS; Z79.4 - [facility] (CURRENT) USE OF INSULIN Comment: - A1c 7.5% - Continue Lantus, Lispro SS and carb coverage (4) Anemia Code(s): D64.9 - ANEMIA, UNSPECIFIED Comment: - Normocytic and chronic, consistent with baseline - No evidence of iron deficiency (5) Hypertension Code(s): I10 - ESSENTIAL (PRIMARY) HYPERTENSION Comment: - Mildly hypertensive - Continue lisinopril (6) Depression with anxiety Comment: - Continue fluoxetine (7) Hypothyroidism Code(s): E03.9 - HYPOTHYROIDISM, UNSPECIFIED Comment: - Continue levothyroxine (8) DVT prophylaxis Comment: - Lovenox (9) Full code status Code(s): Z78.9 - OTHER SPECIFIED HEALTH STATUS Comment: Status and Disposition: Inpatient. Anticipate d/c home when medically stable, pending clinical course. Attending: Renee Carvalho
[2019-09-02] MEDS: cefTRIAXone(*) 2 GM in NS 0.9% 100 ML* 100 ML IVPB SCH (21:22)
[2019-09-02] MEDS: Enoxaparin(*) 40 MG/0.4 ML SYR SUBCUT SCH (23:43)
[2019-09-03] MEDS: oxyCODONE/Acetamin 5/325 MG* TAB PO PRN ×5 (03:51→20:18)
[2019-09-03] MEDS: Levothyroxine TAB* 100 MCG TAB PO SCH (05:39)
[2019-09-03 06:09] LABS: Hematocrit 31 % (35-47); Hemoglobin 9.8 g/dL (12.0-16.0); Mean Corpuscular HGB Conc 32 g/dL (31-36); Mean Corpuscular Hemoglobin 29 pg (27-31); Mean Corpuscular Volume 92 fL (80-97); Mean Platelet Volume 8.3 fL (7.4-10.4); Platelet Count 355 10^3/uL (150-450); Red Blood Count 3.36 10^6 /uL (3.70-4.87); Red Cell Distribution Width 16 % (10-15); White Blood Count 16.2 10^3/uL (3.5-10.8)
[2019-09-03 06:25] LABS: BUN/Creatinine Ratio 21.1 (8-20); Calcium 8.5 mg/dL (8.6-10.3); EGFR African American 76.3 (>60); EGFR Non-African American 63.1 (>60); Potassium 4.2 mmol/L (3.5-5.0)
[2019-09-03 06:40] LABS: ABS Basophils 0.1 10^3/ul (0-0.2); ABS Eosinophils 0.5 10^3/ul (0-0.6); ABS Lymphocytes 1.8 10^3/ul (1.0-4.8); ABS Monocytes 1.9 10^3/ul (0-0.8); ABS Neutrophils 11.9 10^3/ul (1.5-7.7); Eosinophil % 2.9 %; Polychromasia 1+
[2019-09-03] MEDS ORDERED: Vancomycin(*) 1,000 MG in NS 0.9% 250 ML* 250 ML IV SCH (09:00)
[2019-09-03] MEDS: Lisinopril TAB* 5 MG PO SCH (09:42)
[2019-09-03] MEDS: Insulin LISPRO* 1 UNITS UNIT SUBCUT SCH ×6 (09:43→17:57)
[2019-09-03] MEDS: Insulin GLARGINE(*) 1 UNITS UNIT SUBCUT SCH (09:44)
[2019-09-03] MEDS: Nystatin TOP POWDER* 15 GM BTL TOPICAL SCH ×3 (09:45→20:21)
[2019-09-03] MEDS: FLUoxetine CAP* 20 MG PO SCH (09:48)
--- NOTE | 2019-09-03 13:03 | PN ---
Subjective Date of Service: 09/03/19 Interval History: Ms. Taveras is feeling about the same today. She has been taking pain medications about every 4 hours and that is helpful at keeping pain under control. She thinks the redness is somewhat improved. Denies CP, SOB, cough. No concerns from nursing. Family History: Unchanged from Admission Social History: Unchanged from Admission Past Medical History: Unchanged from Admission Objective Active Medications: Albuterol (Ventolin Hfa Inhaler*) 2 puff INH Q4H PRN SHORTNESS OF BREATH Cetirizine HCl (Zyrtec*) 10 mg PO DAILY PRN; Protocol Allergy Symptoms Dextrose (D50w Syringe 50 Ml*) 12.5 gm IV PUSH .FOR FS < 60 - SS PRN FS < 60 Enoxaparin Sodium (Lovenox(*)) 40 mg SUBCUT Q24H VITO Fluoxetine HCl (Prozac Cap*) 60 mg PO DAILY VITO Ceftriaxone Sodium 2 gm/ (Sodium Chloride) 100 mls @ 200 mls/hr IVPB Q24H VITO Insulin Glargine (Lantus(*)) 48 units SUBCUT DAILY VITO Insulin Human Lispro (Humalog*) 0 units SUBCUT AC VITO; Protocol Insulin Human Lispro (Humalog*) 0 units SUBCUT AC VITO; Protocol Levothyroxine Sodium (Synthroid Tab*) 300 mcg PO DAILY@0600 VITO Lisinopril (Prinivil Tab*) 5 mg PO DAILY VITO Nystatin (Nystatin Top Powder*) 1 applic TOPICAL TID VITO Oxycodone/Acetaminophen (Percocet 5/325 Tab*) 2 tab PO Q4H PRN PAIN - SEVERE Vital Signs - 8 hr 09/03/19 09/03/19 09/03/19 05:46 07:46 07:52 Temperature 98.5 F Pulse Rate 82 Respiratory 16 16 18 Rate Blood Pressure 128/44 (mmHg) O2 Sat by Pulse 97 Oximetry 09/03/19 09/03/19 09/03/19 08:00 09:49 11:41 Temperature 98.6 F Pulse Rate 84 Respiratory 18 18 18 Rate Blood Pressure 149/55 (mmHg) O2 Sat by Pulse 98 Oximetry Oxygen Devices in Use Now: None Appearance: Middle-aged obese female lying in bed in NAD Ears/Nose/Mouth/Throat: Mucous Membranes Moist Neck: NL Appearance and Movements; NL JVP, Trachea Midline Respiratory: Symmetrical Chest Expansion and Respiratory Effort, Clear to Auscultation Cardiovascular: NL Sounds; No Murmurs; No JVD, RRR Skin: - - Erythema and sloughing skin RLE Neurological: Alert and Oriented x 3, NL Sensation Lines/Tubes/Other Access: Clean, Dry and Intact Peripheral IV Nutrition: Taking PO's Result Diagrams: 09/03/19 06:00 09/03/19 06:00 Assess/Plan/Problems-Billing Assessment: Ms. Taveras is a 48 yo F with PMH of DM, HTN, hypothyroidism, morbid obesity, depression, MRSA cellulitis; presented to the ED with c/o RLE redness and was found to have sepsis secondary to RLE cellulitis. - Patient Problems (1) Cellulitis of right leg Code(s): L03.115 - CELLULITIS OF RIGHT LOWER LIMB Comment: - History of MRSA cellulitis - Symptoms beginning one week prior to admission; failed outpatient therapy on cephalexin and Levaquin/doxy - RLE with significant erythema and skin sloughing, multiple fluid filled blisters, no obvious purulence - Wound culture growing normal jonathan - US negative for DVT - Continue ceftriaxone; d/c vanco per ID recommendation (2) Sepsis Comment: - Present on admission with tachycardia and leukocytosis; source is cellulitis - Normal lactic and stable BPs (3) IDDM (insulin dependent diabetes mellitus) Code(s): E11.9 - TYPE 2 DIABETES MELLITUS WITHOUT COMPLICATIONS; Z79.4 - [facility] (CURRENT) USE OF INSULIN Comment: - A1c 7.5% - Continue Lantus, Lispro SS and carb coverage (4) Anemia Code(s): D64.9 - ANEMIA, UNSPECIFIED Comment: - Normocytic and chronic, consistent with baseline - No evidence of iron deficiency (5) Hypertension Code(s): I10 - ESSENTIAL (PRIMARY) HYPERTENSION Comment: - Mildly hypertensive - Continue lisinopril (6) Depression with anxiety Comment: - Continue fluoxetine (7) Hypothyroidism Code(s): E03.9 - HYPOTHYROIDISM, UNSPECIFIED Comment: - Continue levothyroxine (8) DVT prophylaxis Comment: - Lovenox (9) Full code status Code(s): Z78.9 - OTHER SPECIFIED HEALTH STATUS Comment: Status and Disposition: Inpatient. Anticipate d/c home when medically stable, hopefully in the next 1-2 days. Attending: Hesham Villa
[2019-09-03] MEDS: cefTRIAXone(*) 2 GM in NS 0.9% 100 ML* 100 ML IVPB SCH (20:20)
[2019-09-04] MEDS: oxyCODONE/Acetamin 5/325 MG* TAB PO PRN ×5 (04:05→21:16)
[2019-09-04] MEDS ORDERED: Morphine INJ* 2 MG/ML 1 ML SYRINGE (TWO MG - NEW SYRINGE VERSION) IV ONE (04:29)
[2019-09-04] MEDS: Levothyroxine TAB* 100 MCG TAB PO SCH (05:57)
[2019-09-04 06:22] LABS: Hematocrit 29 % (35-47); Hemoglobin 9.6 g/dL (12.0-16.0); Mean Corpuscular HGB Conc 33 g/dL (31-36); Mean Corpuscular Hemoglobin 30 pg (27-31); Mean Corpuscular Volume 92 fL (80-97); Mean Platelet Volume 8.3 fL (7.4-10.4); Platelet Count 335 10^3/uL (150-450); Red Blood Count 3.17 10^6 /uL (3.70-4.87); Red Cell Distribution Width 15 % (10-15); White Blood Count 14.2 10^3/uL (3.5-10.8)
[2019-09-04] MEDS ORDERED: traMADol TAB* 50 MG PO PRN (06:31)
[2019-09-04 07:02] LABS: ABS Basophils 0.1 10^3/ul (0-0.2); ABS Eosinophils 0.3 10^3/ul (0-0.6); ABS Lymphocytes 1.7 10^3/ul (1.0-4.8); ABS Monocytes 1.6 10^3/ul (0-0.8); ABS Neutrophils 10.5 10^3/ul (1.5-7.7); Eosinophil % 2.5 %
--- NOTE | 2019-09-04 09:32 | PN ---
Subjective Date of Service: 09/04/19 Interval History: Ms. Taveras is feeling poor this morning. Pain in the RLE is worse since dressing was applied yesterday. Pain improved slightly when chantale wrap was loosened, but it is still very uncomfortable. She is feeling very emotional and is weepy. Had a very difficult time getting to the bathroom last night d/t pain with standing. Denies CP, SOB, cough. No concerns from nursing. Family History: Unchanged from Admission Social History: Unchanged from Admission Past Medical History: Unchanged from Admission Objective Active Medications: Albuterol (Ventolin Hfa Inhaler*) 2 puff INH Q4H PRN SHORTNESS OF BREATH Cetirizine HCl (Zyrtec*) 10 mg PO DAILY PRN; Protocol Allergy Symptoms Dextrose (D50w Syringe 50 Ml*) 12.5 gm IV PUSH .FOR FS < 60 - SS PRN FS < 60 Enoxaparin Sodium (Lovenox(*)) 40 mg SUBCUT Q24H VITO Fluoxetine HCl (Prozac Cap*) 60 mg PO DAILY VITO Ceftriaxone Sodium 2 gm/ (Sodium Chloride) 100 mls @ 200 mls/hr IVPB Q24H [facility] Insulin Glargine (Lantus(*)) 48 units SUBCUT DAILY VITO Insulin Human Lispro (Humalog*) 0 units SUBCUT AC VITO; Protocol Insulin Human Lispro (Humalog*) 0 units SUBCUT AC VITO; Protocol Ketorolac Tromethamine (Toradol Inj*) 30 mg IV PUSH Q6H PRN PAIN - SEVERE Levothyroxine Sodium (Synthroid Tab*) 300 mcg PO DAILY@0600 [facility] Lisinopril (Prinivil Tab*) 5 mg PO DAILY [facility] Nystatin (Nystatin Top Powder*) 1 applic TOPICAL TID [facility] Oxycodone/Acetaminophen (Percocet 5/325 Tab*) 2 tab PO Q4H PRN PAIN - SEVERE Tramadol HCl (Ultram*) 50 mg PO Q8H PRN PAIN - MODERATE Vital Signs - 8 hr 09/04/19 09/04/19 09/04/19 04:56 05:58 06:44 Temperature 98 F Pulse Rate 78 Respiratory 18 18 18 Rate Blood Pressure 132/50 (mmHg) O2 Sat by Pulse 96 Oximetry 09/04/19 09/04/19 06:45 08:39 Temperature 98.2 F Pulse Rate 85 Respiratory 18 16 Rate Blood Pressure 152/57 (mmHg) O2 Sat by Pulse 95 Oximetry Oxygen Devices in Use Now: None Appearance: Middle-aged female lying in bed, weeping, but in NAD Ears/Nose/Mouth/Throat: Mucous Membranes Moist Neck: NL Appearance and Movements; NL JVP, Trachea Midline Respiratory: Symmetrical Chest Expansion and Respiratory Effort, Clear to Auscultation Cardiovascular: NL Sounds; No Murmurs; No JVD, RRR Abdominal: NL Sounds; No Tenderness; No Distention Skin: - - Erythema to RLE, dressing intact Neurological: Alert and Oriented x 3 Lines/Tubes/Other Access: Clean, Dry and Intact Peripheral IV Nutrition: Taking PO's Result Diagrams: 09/04/19 06:13 09/03/19 06:00 Assess/Plan/Problems-Billing Assessment: Ms. Taveras is a 48 yo F with PMH of DM, HTN, hypothyroidism, morbid obesity, depression, MRSA cellulitis; presented to the ED with c/o RLE redness and was found to have sepsis secondary to RLE cellulitis. - Patient Problems (1) Cellulitis of right leg Code(s): L03.115 - CELLULITIS OF RIGHT LOWER LIMB Comment: - History of MRSA cellulitis - Symptoms beginning one week prior to admission; failed outpatient therapy on cephalexin and Levaquin/doxy - RLE with significant erythema and skin sloughing, multiple fluid filled blisters, no obvious purulence - Wound culture growing normal jonathan - US negative for DVT - Continue ceftriaxone (2) Sepsis Comment: - Present on admission with tachycardia and leukocytosis; source is cellulitis - Normal lactic and stable BPs (3) IDDM (insulin dependent diabetes mellitus) Code(s): E11.9 - TYPE 2 DIABETES MELLITUS WITHOUT COMPLICATIONS; Z79.4 - INFORMATION SYSTEMS PROFESSOR (CURRENT) USE OF INSULIN Comment: - A1c 7.5% - Continue Lantus, Lispro SS and carb coverage (4) Anemia Code(s): D64.9 - ANEMIA, UNSPECIFIED Comment: - Normocytic and chronic - No evidence of iron deficiency (5) Hypertension Code(s): I10 - ESSENTIAL (PRIMARY) HYPERTENSION Comment: - Mildly hypertensive, likely elevated d/t pain - Continue lisinopril (6) Depression with anxiety Comment: - Continue fluoxetine (7) Morbid obesity Code(s): E66.01 - MORBID (SEVERE) OBESITY DUE TO EXCESS CALORIES Comment: - BMI 79 - Patient requesting referral to [facility] (8) Hypothyroidism Code(s): E03.9 - HYPOTHYROIDISM, UNSPECIFIED Comment: - Continue levothyroxine (9) DVT prophylaxis Comment: - Lovenox (10) Full code status Code(s): Z78.9 - OTHER SPECIFIED HEALTH STATUS Comment: Status and Disposition: Inpatient. Anticipate d/c home when medically stable, hopefully in the next 1-2 days. Attending: Edi Rollins MD
[2019-09-04] MEDS: FLUoxetine CAP* 20 MG PO SCH (09:47)
[2019-09-04] MEDS: Lisinopril TAB* 5 MG PO SCH (09:47)
[2019-09-04] MEDS: Insulin GLARGINE(*) 1 UNITS UNIT SUBCUT SCH (09:48)
[2019-09-04] MEDS: Insulin LISPRO* 1 UNITS UNIT SUBCUT SCH ×6 (09:49→18:26)
[2019-09-04] MEDS: Ketorolac INJ* 30 MG/ML 1 ML VIAL IV PUSH PRN ×3 (09:51→23:34)
[2019-09-04] MEDS: Nystatin TOP POWDER* 15 GM BTL TOPICAL SCH ×3 (09:57→21:01)
[2019-09-04] MEDS ORDERED: Vancomycin Trough Check NOTE FOLLOW UP ONE (21:00)
[2019-09-04] MEDS: cefTRIAXone(*) 2 GM in NS 0.9% 100 ML* 100 ML IVPB SCH (21:01)
[2019-09-04] MEDS: Enoxaparin(*) 40 MG/0.4 ML SYR SUBCUT SCH ×2 (23:35)
[2019-09-05] MEDS: oxyCODONE/Acetamin 5/325 MG* TAB PO PRN ×6 (02:27→23:34)
[2019-09-05] MEDS: Ketorolac INJ* 30 MG/ML 1 ML VIAL IV PUSH PRN ×3 (05:45→18:04)
[2019-09-05] MEDS: Levothyroxine TAB* 100 MCG TAB PO SCH (05:54)
[2019-09-05 06:27] LABS: Hematocrit 29 % (35-47); Hemoglobin 9.8 g/dL (12.0-16.0); Mean Corpuscular HGB Conc 34 g/dL (31-36); Mean Corpuscular Hemoglobin 31 pg (27-31); Mean Corpuscular Volume 93 fL (80-97); Mean Platelet Volume 8.8 fL (7.4-10.4); Platelet Count 342 10^3/uL (150-450); Red Blood Count 3.15 10^6 /uL (3.70-4.87); Red Cell Distribution Width 15 % (10-15); White Blood Count 10.5 10^3/uL (3.5-10.8)
[2019-09-05 06:44] LABS: BUN/Creatinine Ratio 19.2 (8-20); Calcium 8.5 mg/dL (8.6-10.3); EGFR African American 68.7 (>60); EGFR Non-African American 56.8 (>60); Potassium 4.3 mmol/L (3.5-5.0)
[2019-09-05 07:26] LABS: ABS Basophils 0.1 10^3/ul (0-0.2); ABS Eosinophils 0.3 10^3/ul (0-0.6); ABS Lymphocytes 1.8 10^3/ul (1.0-4.8); ABS Monocytes 1.3 10^3/ul (0-0.8); ABS Neutrophils 7.1 10^3/ul (1.5-7.7); Eosinophil % 2.8 %; Lymphocyte % 16.9 %
[2019-09-05] MEDS: Nystatin TOP POWDER* 15 GM BTL TOPICAL SCH ×3 (09:13→22:12)
[2019-09-05] MEDS: Lisinopril TAB* 5 MG PO SCH (09:29)
[2019-09-05] MEDS: FLUoxetine CAP* 20 MG PO SCH (09:29)
[2019-09-05] MEDS: Insulin GLARGINE(*) 1 UNITS UNIT SUBCUT SCH (09:29)
[2019-09-05] MEDS: Insulin LISPRO* 1 UNITS UNIT SUBCUT SCH ×6 (09:30→18:04)
[2019-09-05 09:45] LABS: C Reactive Protein 116.88 mg/L (<8.01)
--- NOTE | 2019-09-05 13:10 | CONS ---
CONSULTATION REPORT: DATE OF CONSULT: 09/05/19 PRIMARY CARE PROVIDER: Dr. Anish Henriquez. PROVIDER REQUESTING CONSULTATION: Deepti Renner NP. CONSULTING SERVICE: Infectious Diseases. PROVIDER: Sandee Devlin NP. ATTENDING PROVIDER: Dr. Edi Rollins* (Sandee Devlin NP). IMPRESSION: 1. Right lower extremity cellulitis. Suspect that this likely represents strep cellulitis in the setting of multiple large bullae. She is afebrile and initial leukocytosis has resolved. CRP elevated on admission at 165.39. Venous doppler was negative for DVT at time of admission. The open areas were being treated by calcium alginate, but the dressing is sticking to the wounds. 2. Morbid obesity. BMI 79.7. 3. Diabetes mellitus, type 2. RECOMMENDATIONS/PLAN: Recommend continuing ceftriaxone while she is in the hospital. I will add a CRP on to the last labs. Discharge plan will be for wound care and referral to the wound clinic. In terms of antibiotics Dalvance 1500 mg IV once, this will provide 2 to 3 weeks of antibiotic coverage. If she is unable to get this set up the day after discharge, she should be placed cefdinir until she is able to get her first dose of Dalvance. If she is unable to have Dalvance, then she should continue cefdinir for 14 days. Followup with ID outpatient in 1 to 2 weeks. HISTORY OF PRESENT ILLNESS: Ms. Taevras is a 48-year-old female with past medical history significant for diabetes, hypertension, hypothyroidism, depression, morbid obesity, PCOS, chronic idiopathic urticaria, history of MRSA cellulitis; who developed fever and chills with temperature max of 103, she had noticed pain and redness in the right leg extending from the knee to the ankle. Additionally, she was having nausea, vomiting, and loss of appetite. She was seen by her primary care provider, who prescribed Keflex for right lower extremity cellulitis. She started the antibiotics but felt that she was not getting better and instead worsening. She developed blistering to the leg with serous fluid draining. She was again seen by her primary care provider, who switched her to doxycycline and Levaquin on 08/29/19. She felt that she was having a little bit of improvement with the new antibiotic, but was concerned due to the redness and pain and presented to the emergency room for further evaluation. While in the emergency room, she was noted to be tachycardic, hypertensive, and afebrile. She was noted to have leukocytosis, anemia, elevated CRP, hyponatremia. She had a right lower extremity venous Doppler that was negative for DVT. She was referred to the hospitalist service for admission. While in the hospital, the patient was admitted with sepsis, which has resolved. She received IV fluids, vancomycin, ceftriaxone. She remains afebrile while in the hospital. Her leukocytosis had resolved. She continued to have bullae to the right lower extremity with drainage. She was seen by a wound care nurse on Thursday with recommendations for calcium Alginate dressings. Unfortunately, this is sticking to the wound. She reports that the pain is improving. She is able to ambulate and bear weight on the right LE. PAST MEDICAL HISTORY: 1. Diabetes mellitus, type 2. 2. Hypertension. 3. Hypothyroidism. 4. Depression. 5. Morbid obesity. 6. PCOS. 7. Chronic idiopathic urticaria. 8. History of MRSA cellulitis. 9. Asthma. PAST SURGICAL HISTORY: 1. Status post exploratory laparotomy. 2. Status post laparoscopic cholecystectomy. 3. Status post lithotripsy with stent. 4. Status post left shoulder surgery. MEDICATIONS: Home medications: 1. Levothyroxine 325 mcg by mouth daily. 2. Bee 180 mg by mouth daily as needed for allergy symptoms. 3. Ibuprofen 200 to 600 mg by mouth every 6 hours as needed for pain. 4. Lisinopril 2.5 mg by mouth daily. 5. Lantus insulin 50 units subcutaneous twice daily. 6. Metformin 1000 mg by mouth twice daily. 7. Diclofenac-misoprostol 75-0.2 one tablet by mouth twice daily. 8. Actos 45 mg by mouth daily. 9. Albuterol HFA inhaler 2 puffs inhalation every 4 hours as needed for shortness of breath or wheeze. 10. Prozac 60 mg by mouth daily. 11. Percocet 7.5-325 one tablet by mouth every 6 hours as needed for pain. Hospital medications: 1. Albuterol HFA inhaler 2 puffs inhalation every 4 hours as needed for shortness of breath or wheeze. 2. Ceftriaxone 2 g IV daily. 3. Zyrtec 10 mg by mouth daily. 4. Dextrose 12.5 g IV for glucose less than 60. 5. Lovenox 40 mg subcutaneous daily. 6. Prozac 60 mg by mouth daily. 7. Lantus 48 units subcutaneous daily. 8. Humalog sliding scale with meals. 9. Toradol 30 mg IV every 6 hours as needed for pain. 10. Levothyroxine 300 mcg by mouth daily. 11. Lisinopril 5 mg by mouth daily. 12. Nystatin apply topical 3 times daily. 13. Percocet 5-325 two tablets by mouth every 4 hours as needed for pain. 14. Tramadol 50 mg by mouth every 8 hours as needed for pain. ALLERGIES: BUMETANIDE, CIPRO caused hives, CLINDAMYCIN caused hives, HYDROCHLOROTHIAZIDE, NITROFURANTOIN caused hives, PENICILLIN caused hives, SULFA caused hives, ALMAS'S BEES OIL, CHEER DETERGENT, POISON [place]LOYD, RAGWEED. FAMILY HISTORY: Mother with a history of diabetes, hypothyroidism. Maternal grandmother with a history of colon cancer. No family history of heart disease. Father . She is unaware of his history. SOCIAL HISTORY: Denied tobacco, alcohol, or recreational drug use. REVIEW OF SYSTEMS: I performed a 10-point review of systems. All the pertinent positives and negatives are mentioned in the history of present illness. The remaining review of systems are negative. PHYSICAL EXAM: Vital Signs: Temperature 97.9, heart rate 78, respiratory rate 16, O2 sat 95% on room air, blood pressure 149/57. General Appearance: Alert, appears to be in no acute distress, sitting up in bed. Head: Normocephalic, atraumatic. ENT: Extraocular movements are intact. No subconjunctival hemorrhage. Most mucous membranes. Neck. Supple. No lymphadenopathy noted. Neurologic: Alert and oriented. Cranial nerves II through XII are grossly intact.. Moves all extremities. Cardiovascular: Regular rate and rhythm. S1 , S2 present. No murmurs, rubs, or gallops. Respiratory: No accessory muscle use. Lungs: Clear to auscultation bilateral. Abdomen: Bowel sounds present. Abdomen soft, obese, nontender. Extremities: No lower extremity edema. Musculoskeletal: No clubbing or cyanosis noted. Exhibits good strength in all extremities. She is able to move her right knee and ankle. There is no effusion noted. Psychological: Calm and cooperative. Skin: No rash seen. She is noted to have multiple large bullae to the right lower extremity with mild erythema and open areas at the wound bases with red granulation tissue. Small amount of serous drainage. DIAGNOSTIC STUDIES/LAB DATA: Sodium 138, potassium 4.3, chloride 107, CO2 of 25 , BUN 20, creatinine 1.04, glucose 139. White blood cell count 10.5, hemoglobin 9.8, hematocrit 29, platelet count 342. She is noted to have 2% blast cells. Please see impression and recommendations outlined above. Recommendations have been discussed with Deepti Renner NP. Thank you for asking us to see Ms. Taveras in consultation. The case has been discussed with my attending Dr. Edi Rollins who agrees with the plan of care. Reviewed by DARLENE CHAVEZ 09/08/19 1231 [id number]/[facility] #: [id number] MTDD
--- NOTE | 2019-09-05 15:07 | PN ---
Subjective Date of Service: 09/05/19 Interval History: Ms. Taveras is feeling a little better today. Pain has generally been better controlled. She has been getting up to the bathroom. Still feeling very emotional. Denies CP, SOB, cough. When talking about d/c, the patient became very emotional stating that she did not think she could go home because she is scared of what will happen to her leg. She did work with PT who advised that she has not yet been able to attempt stairs and has 5 steps to get into her home. No concerns from nursing. Family History: Unchanged from Admission Social History: Unchanged from Admission Past Medical History: Unchanged from Admission Objective Active Medications: Albuterol (Ventolin Hfa Inhaler*) 2 puff INH Q4H PRN SHORTNESS OF BREATH Cetirizine HCl (Zyrtec*) 10 mg PO DAILY PRN; Protocol Allergy Symptoms Dextrose (D50w Syringe 50 Ml*) 12.5 gm IV PUSH .FOR FS < 60 - SS PRN FS < 60 Enoxaparin Sodium (Lovenox(*)) 40 mg SUBCUT Q24H VITO Fluoxetine HCl (Prozac Cap*) 60 mg PO DAILY VITO Ceftriaxone Sodium 2 gm/ (Sodium Chloride) 100 mls @ 200 mls/hr IVPB Q24H [facility] Insulin Glargine (Lantus(*)) 48 units SUBCUT DAILY VITO Insulin Human Lispro (Humalog*) 0 units SUBCUT AC VITO; Protocol Insulin Human Lispro (Humalog*) 0 units SUBCUT AC VITO; Protocol Ketorolac Tromethamine (Toradol Inj*) 30 mg IV PUSH Q6H PRN PAIN - SEVERE Levothyroxine Sodium (Synthroid Tab*) 300 mcg PO DAILY@0600 VITO Lisinopril (Prinivil Tab*) 5 mg PO DAILY VITO Nystatin (Nystatin Top Powder*) 1 applic TOPICAL TID VITO Oxycodone/Acetaminophen (Percocet 5/325 Tab*) 2 tab PO Q4H PRN PAIN - SEVERE Tramadol HCl (Ultram*) 50 mg PO Q8H PRN PAIN - MODERATE Vital Signs - 8 hr 09/05/19 09/05/19 09/05/19 08:01 09:00 09:13 Temperature 97.9 F Pulse Rate 78 Respiratory 16 18 16 Rate Blood Pressure 149/57 (mmHg) O2 Sat by Pulse 95 Oximetry 04/13/20 04/13/20 04/13/20 10:45 12:07 13:48 Temperature 98.1 F Pulse Rate 79 Respiratory 16 17 16 Rate Blood Pressure 167/53 (mmHg) O2 Sat by Pulse 98 Oximetry Oxygen Devices in Use Now: None Appearance: Middle-aged obese female lying in bed in NAD Ears/Nose/Mouth/Throat: Mucous Membranes Moist Neck: NL Appearance and Movements; NL JVP, Trachea Midline Respiratory: Symmetrical Chest Expansion and Respiratory Effort, Clear to Auscultation Cardiovascular: NL Sounds; No Murmurs; No JVD, RRR Abdominal: NL Sounds; No Tenderness; No Distention Extremities: No Edema Skin: - - Erythema, intact blisters, and punctured blisters with sloughing skin to RLE; Erythema is improved Neurological: Alert and Oriented x 3 Lines/Tubes/Other Access: Clean, Dry and Intact Peripheral IV Nutrition: Taking PO's Result Diagrams: 09/05/19 05:34 09/05/19 05:34 Assess/Plan/Problems-Billing Assessment: Ms. Taveras is a 48 yo F with PMH of DM, HTN, hypothyroidism, morbid obesity, depression, MRSA cellulitis; presented to the ED with c/o RLE redness and was found to have sepsis secondary to RLE cellulitis. - Patient Problems (1) Cellulitis of right leg Code(s): L03.115 - CELLULITIS OF RIGHT LOWER LIMB Comment: - History of MRSA cellulitis - Symptoms beginning one week prior to admission; failed outpatient therapy on cephalexin and Levaquin/doxy - RLE with significant erythema and skin sloughing, multiple fluid filled blisters, no obvious purulence - Wound culture growing normal jonathan but this is likely Strep d/t presence of blisters - US negative for DVT - Appreciate ID consult; plan for Dalvance x1 after d/c - Dressing change will now be Xeroform and gauze per ID recs - Continue ceftriaxone (2) Sepsis Comment: - Present on admission with tachycardia and leukocytosis; source is cellulitis - Normal lactic and stable BPs (3) Left-shifted white blood cells Code(s): D72.89 - OTHER SPECIFIED DISORDERS OF WHITE BLOOD CELLS Comment: - CBC on admission initially reporting 1% blasts, corrected to 0; CBC 09/04 initially reporting 2% blasts, corrected to 0; Pathologist reports "monocytosis with rare somewhat atypical immature forms, no definitive blasts" - Bandemia on admission at 6% which trended down with WBC - There is certainly evidence of very reactive white cells which may just be secondary to current infectious process, but should be reassessed once infection has resolved; if there are still immature cells seen at that time, patient will need a hematology referral (4) IDDM (insulin dependent diabetes mellitus) Code(s): E11.9 - TYPE 2 DIABETES MELLITUS WITHOUT COMPLICATIONS; Z79.4 - ASSISTED (CURRENT) USE OF INSULIN Comment: - A1c 7.5% - Continue Lantus, Lispro SS and carb coverage (5) Anemia Code(s): D64.9 - ANEMIA, UNSPECIFIED Comment: - Normocytic and chronic - No evidence of iron deficiency (6) Hypertension Code(s): I10 - ESSENTIAL (PRIMARY) HYPERTENSION Comment: - Mildly hypertensive, likely elevated d/t pain - Continue lisinopril (7) Depression with anxiety Comment: - Continue fluoxetine (8) Morbid obesity Code(s): E66.01 - MORBID (SEVERE) OBESITY DUE TO EXCESS CALORIES Comment: - BMI 79 - [facility] (9) Hypothyroidism Code(s): E03.9 - HYPOTHYROIDISM, UNSPECIFIED Comment: - Continue levothyroxine (10) DVT prophylaxis Comment: - Lovenox (11) Full code status Code(s): Z78.9 - OTHER SPECIFIED HEALTH STATUS Comment: Status and Disposition: Inpatient. Medically stable. Anticipate d/c home tomorrow. Attending: Hesham Villa
[2019-09-05] MEDS ORDERED: DALVANCE 1500 MG IV ONCE (for CrCl >/= 30 or regular HD) IVPB ONE ×2 (17:00)
[2019-09-05] MEDS ORDERED: traMADol TAB* 50 MG PO PRN (19:21)
[2019-09-05] MEDS: cefTRIAXone(*) 2 GM in NS 0.9% 100 ML* 100 ML IVPB SCH (21:57)
[2019-09-05] MEDS: Enoxaparin(*) 40 MG/0.4 ML SYR SUBCUT SCH (22:17)
[2019-09-06] MEDS ORDERED: Morphine INJ* 2 MG/ML 1 ML SYRINGE (TWO MG - NEW SYRINGE VERSION) IV ONE ×2 (01:03→09:36)
[2019-09-06] MEDS: oxyCODONE/Acetamin 5/325 MG* TAB PO PRN ×3 (03:20→12:21)
[2019-09-06] MEDS: Levothyroxine TAB* 100 MCG TAB PO SCH (05:41)
[2019-09-06] MEDS: Nystatin TOP POWDER* 15 GM BTL TOPICAL SCH ×2 (08:49→13:07)
[2019-09-06] MEDS: Insulin GLARGINE(*) 1 UNITS UNIT SUBCUT SCH (09:35)
[2019-09-06] MEDS: FLUoxetine CAP* 20 MG PO SCH (09:35)
[2019-09-06] MEDS: Lisinopril TAB* 5 MG PO SCH (09:35)
[2019-09-06] MEDS: Insulin LISPRO* 1 UNITS UNIT SUBCUT SCH ×4 (09:36→13:03)
[2019-09-06] MEDS ORDERED: Ibuprofen TAB* 600 MG PO PRN (09:37)
--- NOTE | 2019-09-06 10:36 | PN ---
Progress Note - Progress Note Date of Service: 09/06/19 SOAP: Subjective: CC: Right LE cellulitis HPI: Ms. Taveras is a 48 yo female with PMH significant for DM2, HTN, hypothyroidism, depression, morbid obesity, PCOS, chronic idiopathic urticaria, and hx MRSA cellulitis; who presented to the emergency room with right LE swelling and erythema and was admitted for right LE cellulitis. Denies fever, chills, nausea, vomiting, or diarrhea. She continues to have pain in the right LE, she is able to move the right knee without difficulty, able to move the right ankle but has discomfort. She also reports discomfort in the right calf where there is a linear open area. She is anxious about going home and the DSG changes. Objective: Vital Signs 09/06/19 09/06/19 09/06/19 07:24 07:28 08:00 Temperature 98.1 F Pulse Rate 84 Respiratory 18 18 18 Rate Blood Pressure 144/58 (mmHg) O2 Sat by Pulse 97 Oximetry Physical Exam: General: NAD, laying in bed Neurological: Alert and Oriented HEENT: Moist MM, no thrush Cardiovascular: Heart rate regular Respiratory: Lung sounds clear Abdominal: Bowel sounds present; ABD obese, soft, and non tender MSK: AGUILAR. Limited movement of the right ankle due to edema and pain. No tenderness with palpation of the right ankle. Able to move right knee without difficulty. Edema to the right foot Skin: No rash. Multiple large bullae with skin desquamation to the right LE from the knee to the ankle. There is dark erythema below the right knee Laboratory Tests 09/05/19 09/05/19 05:34 05:34 WBC 10.5 Hgb 9.8 L Hct 29 L Plt Count 342 Blast Cells % 0.0 Sodium 138 Potassium 4.3 Chloride 107 Carbon Dioxide 25 BUN 20 Creatinine 1.04 H Glucose 139 H C-Reactive Protein 116.88 H Microbiology 08/31/19 21:24 Aerobic Blood Culture - Final Blood Venous No Growth Day 5 Anaerobic Blood Culture - Final No Growth Day 5 08/31/19 21:27 Aerobic Blood Culture - Final Blood Venous No Growth Day 5 Anaerobic Blood Culture - Final No Growth Day 5 09/01/19 12:20 Gram Stain - Final Leg Right Wound Culture - Final Normal Jonathan Assessment: 1. Right lower extremity cellulitis. Wound culture with normal jonathan. Suspect this is likely group A strep. Large area of bullae and skin desquamation. Blood cultures with no growth to date. Afebrile and leukocytosis resolved. CRP elevated, but trending down. 2. DM2. 3. Supra morbid obesity. BMI 79.7. Plan: Continue wound care, she should be referred to the wound clinic at discharge. Continue ceftriaxone while in the hospital. DISCHARGE PLAN: Dalvance 1,500 mg IV once, she has an appointment for the infusion tomorrow. Followup with ID outpatient in 2 weeks (Telemed ok). 25 minutes floor time: > 50 % spent with the patient discussing plans for IV Dalvance, followup, when to call the office (fever, diarrhea, rash).
[2019-09-06 12:03] VITALS: BP 153/60
--- NOTE | 2019-09-06 15:14 | DS ---
Amended report to enter cosigning physician. CC: Dr. Anish Henriquez; Sandee Matias NP* DISCHARGE SUMMARY: DATE OF ADMISSION: 08/31/19 DATE OF DISCHARGE: 09/06/19 PRIMARY CARE PHYSICIAN: Dr. Anish Henriquez. ATTENDING PHYSICIAN: Dr. Erendira Mejia* (dictated by Deepti Renner NP). PRIMARY DIAGNOSES: 1. Right lower extremity cellulitis. 2. Sepsis with left-sided shift. SECONDARY DIAGNOSES: 1. Diabetes mellitus, type 2. 2. Anemia. 3. Hypertension. 4. Depression. 5. Anxiety. 6. Hypothyroidism. 7. Morbid obesity. STUDIES WHILE IN THE HOSPITAL: Right lower extremity venous Doppler on reads as no evidence of occlusive deep vein thrombosis from the right common femoral to the popliteal veins on this limited study. HISTORY OF PRESENT ILLNESS AND HOSPITAL COURSE: Ms. Taveras is a 48-year-old female with past medical history of diabetes, hypertension, morbid obesity, MRSA , depression, who presented to the emergency room on 08/31/19 with complaints of right leg redness. Please see the history and physical by Dr. Mcleod for complete summary of the events leading up to this hospitalization. In short, the patient noted right lower extremity redness and pain. She had seen her primary care provider and was prescribed a course of Keflex, which was not effective at reducing the redness or pain and so she was placed on Levaquin and doxy which she took for several days, although became worried when she noticed that her left leg was starting to blister and so she presented to the emergency room. In the emergency room, she was noted to be septic. Source of infection was noted to be the right lower extremity. She was started on ceftriaxone and vanco and admitted by the hospitalist service. The patient's erythema gradually improved though she did have worsening blistering of the skin of her right lower extremity. Because of these blisters , this was presumed to be secondary to strep and so vanco was discontinued. She continued to improve on ceftriaxone, although at this point does have numerous open areas from punctured blisters. Infectious Disease did consult and at this point they have recommended dressing changes and Dalvance. The patient was noted to have significant left-sided shift on admission. White blood count did increase to 20. Bands on admission were noted to be 6. Initially, the CBC reported 1% blast so that was corrected to 0. Again on 09/04, CBC reported 2% blast upon review by the pathologist that was corrected to 0. The pathologist reported "monocytosis with rare somewhat atypical immature form, no definitive blasts." Bandemia has resolved and white count has resolved to normal as of yesterday. There is certainly evidence of very reactive white cells in this patient which may be secondary to the current infectious process, though will need to be reassessed outpatient to ensure there are no continued abnormalities. On exam, she is alert and oriented x4 with no focal neurological deficits. Heart has a regular rate and rhythm without murmurs, rubs, or gallops. Lungs are clear to auscultation without rhonchi, wheezes, or rubs. There is mild nonpitting edema to the right lower extremity. The right lower extremity has improving erythema and multiple open areas as well as multiple intact blisters. Next, Ms. Taveras is stable for discharge. Most recent vitals are as follows, temp 99.1, heart rate 86, respiratory rate 18, oxygen saturation 96% on room air , blood pressure 153/60. DISCHARGE MEDICATIONS: Continued: 1. Albuterol 2 puffs q.4 hours p.r.n. shortness of breath. 2. Fexofenadine 180 mg p.o. daily p.r.n. allergy symptoms. 3. Fluoxetine 50 mg p.o. daily. 4. Glargine 50 units subcu b.i.d. 5. Levothyroxine 325 mcg p.o. daily. 6. Diclofenac-misoprostol 1 tab p.o. b.i.d. 7. Ibuprofen 200 to 600 mg p.o. q.6 hours p.r.n. pain. 8. Lisinopril 2.5 mg p.o. daily. 9. Metformin 1000 mcg p.o. b.i.d. 10. Pioglitazone 45 mg p.o. daily. 11. Percocet 7.5-325 one tab p.o. q.6 hours p.r.n. pain. DISCHARGE PLAN: Ms. Taveras will be discharged home. Activity will be as tolerated. Diet will be diabetic. Medications are noted above. The patient can resume her usual medications. I have not made any changes. I have prescribed an additional supply of Percocet as the patient does report a significant pain in the right lower extremity. She will have 1 dose of Dalvance in the infusion clinic tomorrow. This has been arranged by Infectious Disease. She will not require any further antibiotics after that unless otherwise determined by Infectious Disease. At this point, dressing change recommendations are: Xeroform, Telfa and gauze to the right lower extremity preferably changed daily but may be changed every other day. The patient does have a follow up with the wound clinic on 09/09/19 at 8 a.m. She has her infusion appointment on 09/07/19 at 2 p.m. She has been referred to visiting nurses for continued dressing changes in the home. She has been referred to [facility] per her recommendation. She will need to follow up with Infectious Disease and the office will call her to schedule an appointment. I ordered a CBC to be done in 3 days to reassess white blood count and ensure resolution of left-sided shift. She should follow up with her primary care provider in the next 4 to 7 days and PCP will need to review the results of her CBC. I would recommend further referral to Hematology if there are continued CBC abnormalities. She should return to the emergency room or nearest hospital for any worsening of symptoms, shortness of breath, lightheadedness, dizziness, chest discomfort, high fevers, chills, night sweats, loss of consciousness, or any other worrisome signs or symptoms. DISCHARGE CONDITION: Stable. DISCHARGE DISPOSITION: Home. This is a summarized report of a complex medical history and hospital stay. For further details, please see the entire medical record. TIME SPENT: Approximately 50 minutes was spent on this discharge. DEEPTI RENNER, RN RESOURCE NURSE [id number]/CPS #: [id number] RADHA
== END 2019-09-06 13:25 | disposition home health service (06) | DRG 720 ==
LOC: ED 20:29 → MEDTELE 22:53 → SSU 09-02 13:33
PROVIDERS: ADMIT Pediatrics; ATTEND Internal Medicine
DX: A41.9 Sepsis, unspecified organism (principal); L03.115 Cellulitis of right lower limb; Z68.45 Body mass index [BMI] 70 or greater, adult; E66.01 Morbid (severe) obesity due to excess calories; E11.9 Type 2 diabetes mellitus without complications; D64.9 Anemia, unspecified; I10 Essential (primary) hypertension; D72.89 Other specified disorders of white blood cells; F32.9 Major depressive disorder, single episode, unspecified; F41.9 Anxiety disorder, unspecified; E03.9 Hypothyroidism, unspecified; L50.1 Idiopathic urticaria; R23.8 Other skin changes; E28.2 Polycystic ovarian syndrome; R82.998 Other abnormal findings in urine; B95.0 Streptococcus, group A, as the cause of diseases classified elsewhere; Z86.14 Personal history of Methicillin resistant Staphylococcus aureus infection; Z83.3 Family history of diabetes mellitus; Z83.49 Family history of other endocrine, nutritional and metabolic diseases; Z80.0 Family history of malignant neoplasm of digestive organs; Z79.84 Long term (current) use of oral hypoglycemic drugs; Z79.4 Long term (current) use of insulin; Z79.899 Other long term (current) drug therapy; Z88.1 Allergy status to other antibiotic agents; Z88.0 Allergy status to penicillin; Z88.2 Allergy status to sulfonamides; Z88.8 Allergy status to other drugs, medicaments and biological substances; Z91.048 Other nonmedicinal substance allergy status
CPT/HCPCS: 36415; 80048; 80053; 80202; 82570; 82728; 83036; 83540; 83550; 83605; 83880; 84300; 85025; 85049; 85060; 86140; 87040; 87070; 87077; 87205; 99283; A9270-GY; J0696; J0875; J1650; J1885; J2270; J3370

== ENCOUNTER 2022-01-09 01:33 | Inpatient (IN) ==
[2022-01-09] MEDS ORDERED: Vancomycin 1,500 MG in NS 0.9% 250 ml 250 ML IVPB ONE (02:32)
[2022-01-09] MEDS ORDERED: Cefepime 2 GM in Dextrose 2 GM/50 ML BAG IV ONE (02:32)
[2022-01-09 02:47] LABS: Hematocrit 32 % (35-47); Hemoglobin 10.1 g/dL (12.0-16.0); Mean Corpuscular HGB Conc 32 g/dL (31-36); Mean Corpuscular Hemoglobin 28 pg (27-31); Mean Corpuscular Volume 90 fL (80-97); Mean Platelet Volume 9.4 fL (7.4-10.4); Platelet Count 232 10^3/uL (150-450); Red Blood Count 3.59 10^6 /uL (3.70-4.87); Red Cell Distribution Width 16 % (10-15); White Blood Count 16.1 10^3/uL (3.5-10.8)
[2022-01-09] MEDS ORDERED: oxyCODONE/Acetamin 5/325 mg TAB PO ONE (02:56)
[2022-01-09 03:01] LABS: Activated Partial Thrombo Time 27.6 seconds (26.0-38.0); INR 1.2 (0.89-1.11)
[2022-01-09 03:11] LABS: High Sens Troponin Baseline 246 pg/mL (<15)
[2022-01-09 03:22] LABS: ALT 20 U/L (7-52); AST 26 U/L (13-39); Albumin/Globulin Ratio 0.9 (1-3); Alkaline Phosphatase 112 U/L (35-149); Anion Gap 14 mmol/L (2-11); Blood Urea Nitrogen 52 mg/dL (6-24); C Reactive Protein 295.41 mg/L (<8.01); CO2 Carbon Dioxide 20 mmol/L (22-32); Calcium 8.3 mg/dL (8.6-10.3); Chloride 93 mmol/L (101-111); Globulin 3.4 g/dL (2-4); Glucose 192 mg/dL (70-100); Potassium 3.9 mmol/L (3.5-5.0); Sodium 127 mmol/L (135-145); Total Protein 6.4 g/dL (6.4-8.9); eGFR CKD-EPI 34.6 (>60)
[2022-01-09] MEDS ORDERED: Vancomycin per Pharmacy 1 EA NOTE FOLLOW UP PRN (03:29)
[2022-01-09] MEDS ORDERED: Morphine 4 MG/ML VIAL (1 ml) IV ONE (03:34)
[2022-01-09] MEDS ORDERED: Lactated Ringers 1000 ml BAG 1,000 ML IV ONE (04:00)
[2022-01-09] MEDS ORDERED: Vancomycin 2,000 MG in NS 0.9% 500 ml BAG 500 ML IVPB ONE (04:00)
[2022-01-09 04:23] LABS: High Sensitivity Troponin 1 Hr 46 pg/mL (<15)
[2022-01-09 04:36] LABS: Anisocytosis 1+; Burr Cells 1+
[2022-01-09 04:37] LABS: ABS Lymphocytes 0.7 10^3/ul (1.0-4.8); ABS Monocytes 2.1 10^3/ul (0-0.8); ABS Neutrophils 13.2 10^3/ul (1.5-7.7); Eosinophil % 0.1 %; Lymphocyte % 4.1 %
[2022-01-09] MEDS ORDERED: Dextrose 50% Syringe 50 ml 25 GM/50 ML SYRINGE IV PUSH PRN (05:59)
[2022-01-09] MEDS ORDERED: NS 0.9% 1000 ml BAG 1,000 ML IV SCH (06:00)
[2022-01-09] MEDS ORDERED: Vancomycin per Pharmacy 1 EA NOTE FOLLOW UP SCH (06:00)
[2022-01-09] MEDS: Heparin 5000 UNITS/ML 1 mL VIAL SUBCUT SCH ×3 (06:34→22:22)
[2022-01-09 08:10] LABS: Total Iron Binding Capacity 213 mcg/dL (250-450); Transferrin 152 mg/dL (203-362)
[2022-01-09 08:13] LABS: % Iron Saturation 9 % (15-55); Iron < 20 ug/dL (50-212); Unsaturated Iron Binding 193 ug/dL
[2022-01-09 08:32] LABS: Ferritin 225.6 ng/mL (11-307)
[2022-01-09 08:36] LABS: TSH Ultra Thyroid Stim Horm 2.88 mcIU/mL (0.34-5.60)
[2022-01-09 08:37] LABS: Vitamin B12 506 pg/mL (180-914)
[2022-01-09] MEDS: Insulin GLARGINE 100 un/ml 10 ml VIAL SUBCUT SCH (10:50)
[2022-01-09 13:24] LABS: Anion Gap 8 mmol/L (2-11); Blood Urea Nitrogen 50 mg/dL (6-24); CO2 Carbon Dioxide 21 mmol/L (22-32); Calcium 7.6 mg/dL (8.6-10.3); Chloride 95 mmol/L (101-111); Glucose 206 mg/dL (70-100); Sodium 124 mmol/L (135-145); eGFR CKD-EPI 35.6 (>60)
[2022-01-09] MEDS: Cefepime 1 GM in Dextrose 1 GM/50 ML BAG IV SCH (14:42)
[2022-01-09] MEDS ORDERED: LORazepam 2 mg VIAL 1 ml IV PUSH ONE (18:29)
[2022-01-09] MEDS ORDERED: Lorazepam PYXIS KEY PRN (18:29)
[2022-01-09 19:47] LABS: Urine Sodium Concentration < 18 mmol/L
[2022-01-09 19:55] LABS: Urine Creatinine Concentration 60.12 mg/dL
[2022-01-09 20:03] LABS: Urine Appearance Clear; Urine Bilirubin Negative (Negative); Urine Blood 3+ (Large) (Negative); Urine Color Straw; Urine Glucose Negative (Negative); Urine Ketones Negative (Negative); Urine Nitrite Negative (Negative); Urine Protein 1+ (30 mg/dL) (Negative); Urine Urobilinogen 0.2 (Negative) (Negative)
[2022-01-09 20:19] LABS: Urine Bacteria 1+ (Absent); Urine Red Blood Cell 1+(3-5/hpf) (Absent); Urine Squamous Epithelial Cell Present (Absent); Urine White Blood Cell 3+(>20/hpf) (Absent); Urine Yeast Present (Absent)
[2022-01-10] MEDS: Cefepime 1 GM in Dextrose 1 GM/50 ML BAG IV SCH ×2 (03:02→14:37)
[2022-01-10] MEDS: Insulin GLARGINE 100 un/ml 10 ml VIAL SUBCUT SCH ×3 (03:55→22:08)
[2022-01-10] MEDS: Heparin 5000 UNITS/ML 1 mL VIAL SUBCUT SCH ×3 (05:50→22:08)
[2022-01-10] MEDS ORDERED: Vancomycin 2,000 MG in NS 0.9% 500 ml BAG 500 ML IVPB SCH (06:00)
[2022-01-10 06:25] LABS: Hematocrit 29 % (35-47); Hemoglobin 9.2 g/dL (12.0-16.0); Mean Corpuscular HGB Conc 32 g/dL (31-36); Mean Corpuscular Hemoglobin 28 pg (27-31); Mean Corpuscular Volume 88 fL (80-97); Mean Platelet Volume 9.1 fL (7.4-10.4); Platelet Count 264 10^3/uL (150-450); Red Blood Count 3.24 10^6 /uL (3.70-4.87); Red Cell Distribution Width 16 % (10-15); White Blood Count 15.8 10^3/uL (3.5-10.8)
[2022-01-10 07:07] LABS: Potassium 4.3 mmol/L (3.5-5.0)
[2022-01-10 07:08] LABS: Calcium 7.9 mg/dL (8.6-10.3); HDL Cholesterol 14.4 mg/dL
[2022-01-10 08:15] LABS: RBC Morphology Normal (Normal)
[2022-01-10 08:16] LABS: ABS Basophils 0.1 10^3/ul (0-0.2); ABS Eosinophils 0.4 10^3/ul (0-0.6); ABS Lymphocytes 1.1 10^3/ul (1.0-4.8); ABS Neutrophils 11.2 10^3/ul (1.5-7.7); Eosinophil % 2.5 %; Lymphocyte % 6.8 %
[2022-01-10 10:43] LABS: Vitamin D Total 25(OH) 32.7 ng/mL (20-50)
[2022-01-10] MEDS: Nystatin TOP POWDER 15 GM BTL TOPICAL SCH ×2 (14:37→22:12)
[2022-01-10 14:43] LABS: Urine Osmo 261 mOsm/kg (150-1150)
[2022-01-10] MEDS ORDERED: NS 0.9% 1000 ml BAG 1,000 ML IV SCH (15:30)
[2022-01-11] MEDS: Cefepime 1 GM in Dextrose 1 GM/50 ML BAG IV SCH ×2 (01:16→16:21)
[2022-01-11] MEDS: Heparin 5000 UNITS/ML 1 mL VIAL SUBCUT SCH ×3 (04:58→21:22)
[2022-01-11 05:43] LABS: Hematocrit 27 % (35-47); Hemoglobin 8.7 g/dL (12.0-16.0); Mean Corpuscular HGB Conc 33 g/dL (31-36); Mean Corpuscular Hemoglobin 29 pg (27-31); Mean Corpuscular Volume 88 fL (80-97); Mean Platelet Volume 8.8 fL (7.4-10.4); Platelet Count 297 10^3/uL (150-450); Red Blood Count 3.02 10^6 /uL (3.70-4.87); Red Cell Distribution Width 16 % (10-15); White Blood Count 19.8 10^3/uL (3.5-10.8)
[2022-01-11] MEDS ORDERED: Vancomycin Random Level NOTE FOLLOW UP ONE (06:00)
[2022-01-11 06:32] LABS: Calcium 7.8 mg/dL (8.6-10.3); Potassium 4.3 mmol/L (3.5-5.0); Vancomycin Trough 15.5 mcg/mL; eGFR CKD-EPI 42.2 (>60)
[2022-01-11 08:26] LABS: ABS Basophils 0.1 10^3/ul (0-0.2); ABS Eosinophils 0.5 10^3/ul (0-0.6); ABS Lymphocytes 1.2 10^3/ul (1.0-4.8); ABS Monocytes 2.7 10^3/ul (0-0.8); ABS Neutrophils 15.3 10^3/ul (1.5-7.7); Eosinophil % 2.4 %; Lymphocyte % 6.2 %; RBC Morphology Normal (Normal)
[2022-01-11] MEDS ORDERED: Vancomycin 2,000 MG in NS 0.9% 500 ml BAG 500 ML IVPB ONE (08:30)
[2022-01-11 09:01] LABS: C Reactive Protein 265.66 mg/L (<8.01)
[2022-01-11] MEDS: Insulin GLARGINE 100 un/ml 10 ml VIAL SUBCUT SCH ×2 (09:19→19:51)
[2022-01-11] MEDS: Nystatin TOP POWDER 15 GM BTL TOPICAL SCH ×3 (09:20→19:51)
[2022-01-11] MEDS: metroNIDAZOLE IV 500 MG/100ML 500 MG/100 ML BAG IVPB SCH (19:51)
[2022-01-12] MEDS: Cefepime 1 GM in Dextrose 1 GM/50 ML BAG IV SCH ×2 (02:03→14:06)
[2022-01-12] MEDS: Heparin 5000 UNITS/ML 1 mL VIAL SUBCUT SCH ×3 (06:10→20:10)
[2022-01-12] MEDS: metroNIDAZOLE IV 500 MG/100ML 500 MG/100 ML BAG IVPB SCH ×2 (07:49→20:12)
[2022-01-12] MEDS ORDERED: Vancomycin Random Level NOTE FOLLOW UP ONE (08:00)
[2022-01-12 08:11] LABS: Hematocrit 29 % (35-47); Hemoglobin 9.1 g/dL (12.0-16.0); Mean Corpuscular HGB Conc 32 g/dL (31-36); Mean Corpuscular Hemoglobin 28 pg (27-31); Mean Corpuscular Volume 89 fL (80-97); Mean Platelet Volume 8.8 fL (7.4-10.4); Platelet Count 389 10^3/uL (150-450); Red Blood Count 3.21 10^6 /uL (3.70-4.87); Red Cell Distribution Width 16 % (10-15); White Blood Count 26.3 10^3/uL (3.5-10.8)
[2022-01-12] MEDS: Insulin GLARGINE 100 un/ml 10 ml VIAL SUBCUT SCH ×2 (08:12→20:11)
[2022-01-12] MEDS: Nystatin TOP POWDER 15 GM BTL TOPICAL SCH ×3 (08:19→20:13)
[2022-01-12 08:32] LABS: RBC Morphology Normal (Normal)
[2022-01-12 08:33] LABS: ABS Basophils 0.1 10^3/ul (0-0.2); ABS Eosinophils 0.5 10^3/ul (0-0.6); ABS Lymphocytes 1.5 10^3/ul (1.0-4.8); ABS Neutrophils 21.1 10^3/ul (1.5-7.7); Lymphocyte % 5.8 %
[2022-01-12 08:47] LABS: C Reactive Protein 277.93 mg/L (<8.01); Calcium 8.2 mg/dL (8.6-10.3); eGFR CKD-EPI 43.6 (>60)
[2022-01-12] MEDS ORDERED: Morphine 2 MG/ML SYRINGE IV PRN (10:16)
[2022-01-12] MEDS: Vancomycin 1,250 MG in NS 0.9% 250 ml 250 ML IVPB SCH (15:09)
[2022-01-12 20:55] LABS: Hematocrit 27 % (35-47); Hemoglobin 8.4 g/dL (12.0-16.0); Mean Corpuscular HGB Conc 31 g/dL (31-36); Mean Corpuscular Hemoglobin 28 pg (27-31); Mean Corpuscular Volume 89 fL (80-97); Mean Platelet Volume 8.8 fL (7.4-10.4); Platelet Count 370 10^3/uL (150-450); Red Blood Count 3.02 10^6 /uL (3.70-4.87); Red Cell Distribution Width 16 % (10-15); White Blood Count 24.9 10^3/uL (3.5-10.8)
[2022-01-12 20:58] LABS: ABS Basophils 0.1 10^3/ul (0-0.2); ABS Eosinophils 0.5 10^3/ul (0-0.6); ABS Monocytes 2.9 10^3/ul (0-0.8); ABS Neutrophils 20.4 10^3/ul (1.5-7.7)
[2022-01-13] MEDS: Vancomycin 1,250 MG in NS 0.9% 250 ml 250 ML IVPB SCH ×2 (00:51→14:00)
[2022-01-13] MEDS: Cefepime 1 GM in Dextrose 1 GM/50 ML BAG IV SCH ×2 (03:28→16:09)
[2022-01-13] MEDS: Heparin 5000 UNITS/ML 1 mL VIAL SUBCUT SCH ×3 (04:21→22:42)
[2022-01-13 05:16] LABS: Hematocrit 27 % (35-47); Hemoglobin 8.6 g/dL (12.0-16.0); Mean Corpuscular HGB Conc 32 g/dL (31-36); Mean Corpuscular Hemoglobin 29 pg (27-31); Mean Corpuscular Volume 89 fL (80-97); Mean Platelet Volume 8.9 fL (7.4-10.4); Platelet Count 398 10^3/uL (150-450); Red Cell Distribution Width 16 % (10-15); White Blood Count 24.3 10^3/uL (3.5-10.8)
[2022-01-13 05:41] LABS: Calcium 7.9 mg/dL (8.6-10.3); eGFR CKD-EPI 46.6 (>60)
[2022-01-13 07:59] LABS: ABS Basophils 0.1 10^3/ul (0-0.2); ABS Eosinophils 0.4 10^3/ul (0-0.6); ABS Lymphocytes 1.2 10^3/ul (1.0-4.8); ABS Monocytes 2.8 10^3/ul (0-0.8); ABS Neutrophils 19.9 10^3/ul (1.5-7.7); Eosinophil % 1.6 %; Lymphocyte % 4.8 %
[2022-01-13] MEDS: Insulin GLARGINE 100 un/ml 10 ml VIAL SUBCUT SCH ×2 (08:23→21:43)
[2022-01-13] MEDS: metroNIDAZOLE IV 500 MG/100ML 500 MG/100 ML BAG IVPB SCH ×2 (08:30→21:42)
[2022-01-13] MEDS: Nystatin TOP POWDER 15 GM BTL TOPICAL SCH ×2 (13:36→14:01)
[2022-01-13 15:07] LABS: Rapid COVID-19 Molecular Undetected (Undetected)
[2022-01-13] MEDS ORDERED: Lidocaine 1% w EPI 1:200,000 SDV 30 ML VIAL ONE (20:17)
[2022-01-13] MEDS ORDERED: Morphine 2 MG/ML SYRINGE IV ONE (21:10)
[2022-01-13] MEDS: Morphine 4 MG/ML VIAL (1 ml) ONE ×2 (21:33→22:37)
[2022-01-14] MEDS: Nystatin TOP POWDER 15 GM BTL TOPICAL SCH ×4 (00:11→23:09)
[2022-01-14] MEDS: Meropenem 1 GM PREMIX 1 GM/50 ML BAG IV SCH ×4 (00:23→23:27)
[2022-01-14] MEDS: Vancomycin 1,250 MG in NS 0.9% 250 ml 250 ML IVPB SCH ×2 (00:50→12:27)
[2022-01-14 04:58] LABS: Hematocrit 26 % (35-47); Hemoglobin 8.2 g/dL (12.0-16.0); Mean Corpuscular HGB Conc 31 g/dL (31-36); Mean Corpuscular Hemoglobin 28 pg (27-31); Mean Corpuscular Volume 89 fL (80-97); Mean Platelet Volume 8.8 fL (7.4-10.4); Platelet Count 428 10^3/uL (150-450); Red Blood Count 2.96 10^6 /uL (3.70-4.87); Red Cell Distribution Width 16 % (10-15); White Blood Count 22.9 10^3/uL (3.5-10.8)
[2022-01-14 05:34] LABS: ABS Basophils 0.1 10^3/ul (0-0.2); ABS Eosinophils 0.3 10^3/ul (0-0.6); ABS Lymphocytes 1.4 10^3/ul (1.0-4.8); ABS Monocytes 2.7 10^3/ul (0-0.8); ABS Neutrophils 18.3 10^3/ul (1.5-7.7); Anisocytosis 1+; Eosinophil % 1.5 %; Lymphocyte % 6.3 %
[2022-01-14] MEDS: Heparin 5000 UNITS/ML 1 mL VIAL SUBCUT SCH ×3 (05:38→23:28)
[2022-01-14 05:42] LABS: C Reactive Protein 204.54 mg/L (<8.01); Calcium 7.9 mg/dL (8.6-10.3); Potassium 4.4 mmol/L (3.5-5.0)
[2022-01-14] MEDS: Insulin GLARGINE 100 un/ml 10 ml VIAL SUBCUT SCH ×2 (08:23→20:14)
[2022-01-14] MEDS ORDERED: Vancomycin Trough Check NOTE FOLLOW UP ONE (11:30)
[2022-01-14 12:12] LABS: Vancomycin Trough 27.3 mcg/mL; eGFR CKD-EPI 50.1 (>60)
[2022-01-14 23:02] LABS: Fungitell Qualitative Result Negative (Negative); Fungitell Quantitative Value <31 pg/mL (<60 pg/mL)
[2022-01-15 05:33] LABS: Hematocrit 26 % (35-47); Hemoglobin 8.2 g/dL (12.0-16.0); Mean Corpuscular HGB Conc 32 g/dL (31-36); Mean Corpuscular Hemoglobin 28 pg (27-31); Mean Corpuscular Volume 88 fL (80-97); Mean Platelet Volume 8.5 fL (7.4-10.4); Platelet Count 436 10^3/uL (150-450); Red Blood Count 2.93 10^6 /uL (3.70-4.87); Red Cell Distribution Width 16 % (10-15); White Blood Count 19.7 10^3/uL (3.5-10.8)
[2022-01-15] MEDS: Heparin 5000 UNITS/ML 1 mL VIAL SUBCUT SCH (05:56)
[2022-01-15] MEDS: Meropenem 1 GM PREMIX 1 GM/50 ML BAG IV SCH (05:59)
[2022-01-15] MEDS ORDERED: Vancomycin Random Level NOTE FOLLOW UP ONE (06:00)
[2022-01-15 06:15] LABS: C Reactive Protein 179.99 mg/L (<8.01); Potassium 4.5 mmol/L (3.5-5.0); Vancomycin Random 17.6 mcg/mL
[2022-01-15 06:57] LABS: ABS Basophils 0.2 10^3/ul (0-0.2); ABS Eosinophils 0.3 10^3/ul (0-0.6); ABS Lymphocytes 1.7 10^3/ul (1.0-4.8); ABS Monocytes 1.9 10^3/ul (0-0.8); ABS Neutrophils 15.7 10^3/ul (1.5-7.7); Eosinophil % 1.5 %; Lymphocyte % 8.4 %; RBC Morphology Normal (Normal)
[2022-01-15 08:21] VITALS: BP 138/75
[2022-01-15] MEDS: Nystatin TOP POWDER 15 GM BTL TOPICAL SCH (08:45)
[2022-01-15] MEDS ORDERED: Morphine 2 MG/ML SYRINGE IV PRN (08:49)
[2022-01-15] MEDS ORDERED: Morphine 2 MG/ML SYRINGE ONE (09:05)
[2022-01-15] MEDS: Insulin GLARGINE 100 un/ml 10 ml VIAL SUBCUT SCH (09:24)
== END 2022-01-15 09:35 | disposition short-term general hospital (02) | DRG 720 ==
LOC: ED 01:33 → SUATTDRO 05:54 → EDHOLD 05:54 → SSU 01-10 00:45
PROVIDERS: ADMIT Hospitalist; ATTEND Internal Medicine

== ENCOUNTER 2022-01-24 23:51 | Inpatient (IN) ==
[2022-01-25] MEDS ORDERED: Dextrose 50% Syringe 50 ml 25 GM/50 ML SYRINGE IV PUSH PRN (13:14)
[2022-01-25] MEDS ORDERED: [UNRECOGNIZED DRUG - OTHER] PO SCH (13:15)
[2022-01-25 15:37] LABS: Hematocrit 24 % (35-47); Hemoglobin 7.7 g/dL (12.0-16.0); Mean Corpuscular HGB Conc 32 g/dL (31-36); Mean Corpuscular Hemoglobin 29 pg (27-31); Mean Corpuscular Volume 89 fL (80-97); Mean Platelet Volume 7.8 fL (7.4-10.4); Platelet Count 369 10^3/uL (150-450); Red Blood Count 2.69 10^6 /uL (3.70-4.87); Red Cell Distribution Width 16 % (10-15); White Blood Count 7.3 10^3/uL (3.5-10.8)
[2022-01-25] MEDS: MOXIFLOXACIN 400 MG PO SCH (16:05)
[2022-01-25 16:12] LABS: ABS Basophils 0.1 10^3/ul (0-0.2); ABS Eosinophils 0.1 10^3/ul (0-0.6); ABS Lymphocytes 1.3 10^3/ul (1.0-4.8); ABS Monocytes 1.5 10^3/ul (0-0.8); ABS Neutrophils 4.3 10^3/ul (1.5-7.7); Anisocytosis 1+; Eosinophil % 1.1 %; Lymphocyte % 17.3 %; RBC Morphology Normal (Normal)
[2022-01-25 16:20] LABS: Anion Gap 6 mmol/L (2-11); Blood Urea Nitrogen 20 mg/dL (6-24); CO2 Carbon Dioxide 25 mmol/L (22-32); Chloride 104 mmol/L (101-111); Glucose 172 mg/dL (70-100); Magnesium 1.5 mg/dL (1.9-2.7); Potassium 4.2 mmol/L (3.5-5.0); Sodium 135 mmol/L (135-145); eGFR CKD-EPI 56.8 (>60)
[2022-01-25] MEDS ORDERED: Magnesium Sulfate IV 3 GM in NS 0.9% 100 ml BAG 100 ML IVPB ONE (16:34)
[2022-01-25 17:57] LABS: Folate > 20.00 ng/mL (5.90-24.80)
[2022-01-25] MEDS: Enoxaparin 40 MG/0.4 ML SYR SUBCUT SCH (20:43)
[2022-01-25] MEDS: Insulin GLARGINE 100 un/ml 10 ml VIAL SUBCUT SCH (20:43)
[2022-01-26] MEDS: MOXIFLOXACIN 400 MG PO SCH (08:48)
[2022-01-26] MEDS ORDERED: Senna TAB 8.6 mg TAB PO PRN (10:29)
[2022-01-26] MEDS ORDERED: Magnesium Hydroxide LIQ 30 ML UDC PO PRN (10:29)
[2022-01-26] MEDS ORDERED: Polyethylene Glycol 3350 17 GM PACKET PO PRN (10:29)
[2022-01-26] MEDS: Insulin GLARGINE 100 un/ml 10 ml VIAL SUBCUT SCH (19:54)
[2022-01-26] MEDS: Enoxaparin 40 MG/0.4 ML SYR SUBCUT SCH (19:55)
[2022-01-27] MEDS: MOXIFLOXACIN 400 MG PO SCH (07:40)
[2022-01-27 12:40] LABS: Hematocrit 24 % (35-47); Mean Corpuscular HGB Conc 33 g/dL (31-36); Mean Corpuscular Hemoglobin 29 pg (27-31); Mean Corpuscular Volume 88 fL (80-97); Mean Platelet Volume 8.1 fL (7.4-10.4); Platelet Count 459 10^3/uL (150-450); Red Blood Count 2.77 10^6 /uL (3.70-4.87); Red Cell Distribution Width 16 % (10-15); White Blood Count 6.9 10^3/uL (3.5-10.8)
[2022-01-27 13:13] LABS: Calcium 8.3 mg/dL (8.6-10.3); Magnesium 1.6 mg/dL (1.9-2.7); Potassium 4.5 mmol/L (3.5-5.0); eGFR CKD-EPI 70.3 (>60)
[2022-01-27 13:19] LABS: ABS Basophils 0.1 10^3/ul (0-0.2); ABS Eosinophils 0.2 10^3/ul (0-0.6); ABS Lymphocytes 1.3 10^3/ul (1.0-4.8); ABS Monocytes 1.2 10^3/ul (0-0.8); ABS Neutrophils 4.1 10^3/ul (1.5-7.7); Eosinophil % 2.4 %; Lymphocyte % 19.6 %; Nucleated Red Blood Cells % 0.2
[2022-01-27] MEDS ORDERED: Magnesium Sulfate 2 gm BAG 2 GM/50 ML BAG IVPB ONE (13:53)
[2022-01-27] MEDS: Enoxaparin 40 MG/0.4 ML SYR SUBCUT SCH (20:32)
[2022-01-27] MEDS: Insulin GLARGINE 100 un/ml 10 ml VIAL SUBCUT SCH (20:33)
[2022-01-28] MEDS: MOXIFLOXACIN 400 MG PO SCH (08:35)
[2022-01-28] MEDS: Enoxaparin 40 MG/0.4 ML SYR SUBCUT SCH (20:51)
[2022-01-28] MEDS: Insulin GLARGINE 100 un/ml 10 ml VIAL SUBCUT SCH (20:51)
[2022-01-29] MEDS: MOXIFLOXACIN 400 MG PO SCH (08:25)
[2022-01-29 10:01] LABS: ABS Basophils 0.1 10^3/ul (0-0.2); ABS Eosinophils 0.3 10^3/ul (0-0.6); ABS Lymphocytes 1.6 10^3/ul (1.0-4.8); ABS Monocytes 0.8 10^3/ul (0-0.8); ABS Neutrophils 4.1 10^3/ul (1.5-7.7); Eosinophil % 3.9 %; Hematocrit 25 % (35-47); Hemoglobin 8.1 g/dL (12.0-16.0); Lymphocyte % 22.9 %; Mean Corpuscular HGB Conc 33 g/dL (31-36); Mean Corpuscular Hemoglobin 29 pg (27-31); Mean Corpuscular Volume 90 fL (80-97); Mean Platelet Volume 7.8 fL (7.4-10.4); Platelet Count 467 10^3/uL (150-450); Red Blood Count 2.76 10^6 /uL (3.70-4.87); Red Cell Distribution Width 16 % (10-15); White Blood Count 6.8 10^3/uL (3.5-10.8)
[2022-01-29 10:51] LABS: Calcium 8.4 mg/dL (8.6-10.3); Magnesium 1.7 mg/dL (1.9-2.7); eGFR CKD-EPI 69.5 (>60)
[2022-01-29] MEDS ORDERED: Magnesium Sulfate 2 gm BAG 2 GM/50 ML BAG IVPB ONE (12:16)
[2022-01-29] MEDS: Enoxaparin 40 MG/0.4 ML SYR SUBCUT SCH (22:15)
[2022-01-29] MEDS: Insulin GLARGINE 100 un/ml 10 ml VIAL SUBCUT SCH (22:15)
[2022-01-30] MEDS: MOXIFLOXACIN 400 MG PO SCH (08:34)
[2022-01-30 09:13] LABS: Hematocrit 26 % (35-47); Hemoglobin 8.2 g/dL (12.0-16.0); Mean Corpuscular HGB Conc 32 g/dL (31-36); Mean Corpuscular Hemoglobin 29 pg (27-31); Mean Corpuscular Volume 89 fL (80-97); Mean Platelet Volume 7.8 fL (7.4-10.4); Platelet Count 515 10^3/uL (150-450); Red Blood Count 2.86 10^6 /uL (3.70-4.87); Red Cell Distribution Width 16 % (10-15); White Blood Count 7.2 10^3/uL (3.5-10.8)
[2022-01-30 09:50] LABS: Calcium 8.6 mg/dL (8.6-10.3); Magnesium 1.8 mg/dL (1.9-2.7); Potassium 4.8 mmol/L (3.5-5.0)
[2022-01-30] MEDS ORDERED: Magnesium Sulfate 2 gm BAG 2 GM/50 ML BAG IVPB ONE (09:53)
[2022-01-30 11:18] LABS: ABS Basophils 0.1 10^3/ul (0-0.2); ABS Eosinophils 0.2 10^3/ul (0-0.6); ABS Lymphocytes 1.4 10^3/ul (1.0-4.8); ABS Monocytes 0.8 10^3/ul (0-0.8); ABS Neutrophils 4.6 10^3/ul (1.5-7.7); Eosinophil % 2.9 %; Lymphocyte % 20.2 %; Nucleated Red Blood Cells % 0.1
[2022-01-30] MEDS: Insulin GLARGINE 100 un/ml 10 ml VIAL SUBCUT SCH (21:12)
[2022-01-30] MEDS: Enoxaparin 40 MG/0.4 ML SYR SUBCUT SCH (21:12)
[2022-01-31 06:16] LABS: Hematocrit 28 % (35-47); Mean Corpuscular HGB Conc 33 g/dL (31-36); Mean Corpuscular Hemoglobin 29 pg (27-31); Mean Corpuscular Volume 89 fL (80-97); Mean Platelet Volume 7.9 fL (7.4-10.4); Platelet Count 585 10^3/uL (150-450); Red Blood Count 3.12 10^6 /uL (3.70-4.87); Red Cell Distribution Width 16 % (10-15); White Blood Count 8.3 10^3/uL (3.5-10.8)
[2022-01-31 06:31] LABS: Calcium 8.9 mg/dL (8.6-10.3); Magnesium 1.9 mg/dL (1.9-2.7); Potassium 4.7 mmol/L (3.5-5.0); eGFR CKD-EPI 61.2 (>60)
[2022-01-31] MEDS: MOXIFLOXACIN 400 MG PO SCH (07:35)
[2022-01-31] MEDS: Cefepime 2 GM in Dextrose 2 GM/50 ML BAG IV SCH ×2 (10:20→17:14)
[2022-01-31] MEDS: Enoxaparin 40 MG/0.4 ML SYR SUBCUT SCH (21:50)
[2022-01-31] MEDS: Insulin GLARGINE 100 un/ml 10 ml VIAL SUBCUT SCH (21:52)
[2022-02-01] MEDS: Cefepime 2 GM in Dextrose 2 GM/50 ML BAG IV SCH ×3 (01:59→17:11)
[2022-02-01 06:03] LABS: Hematocrit 26 % (35-47); Hemoglobin 8.6 g/dL (12.0-16.0); Mean Corpuscular HGB Conc 33 g/dL (31-36); Mean Corpuscular Hemoglobin 30 pg (27-31); Mean Corpuscular Volume 90 fL (80-97); Mean Platelet Volume 7.7 fL (7.4-10.4); Platelet Count 487 10^3/uL (150-450); Red Blood Count 2.91 10^6 /uL (3.70-4.87); Red Cell Distribution Width 16 % (10-15); White Blood Count 7.7 10^3/uL (3.5-10.8)
[2022-02-01 06:14] LABS: ABS Basophils 0.1 10^3/ul (0-0.2); ABS Eosinophils 0.3 10^3/ul (0-0.6); ABS Lymphocytes 1.5 10^3/ul (1.0-4.8); ABS Neutrophils 4.8 10^3/ul (1.5-7.7); Eosinophil % 4.4 %; Lymphocyte % 19.1 %; Nucleated Red Blood Cells % 0.1
[2022-02-01 06:42] LABS: Calcium 8.6 mg/dL (8.6-10.3); Magnesium 1.7 mg/dL (1.9-2.7); Potassium 4.5 mmol/L (3.5-5.0)
[2022-02-01] MEDS ORDERED: Magnesium Sulfate 2 gm BAG 2 GM/50 ML BAG IVPB ONE (08:09)
[2022-02-01] MEDS: Enoxaparin 40 MG/0.4 ML SYR SUBCUT SCH (20:16)
[2022-02-01] MEDS: Insulin GLARGINE 100 un/ml 10 ml VIAL SUBCUT SCH (20:17)
[2022-02-02] MEDS: Cefepime 2 GM in Dextrose 2 GM/50 ML BAG IV SCH ×2 (02:08→10:21)
[2022-02-02 10:16] LABS: Calcium 8.6 mg/dL (8.6-10.3); Magnesium 1.8 mg/dL (1.9-2.7); eGFR CKD-EPI 55.7 (>60)
[2022-02-02] MEDS ORDERED: Magnesium Sulfate 2 gm BAG 2 GM/50 ML BAG IVPB ONE (10:18)
[2022-02-02 11:05] VITALS: BP 134/48
== END 2022-02-02 13:24 | DRG 383 ==
LOC: EDHOLD 23:51 → ED 23:51 → SUATTDRO 01-25 13:00 → MED 01-25 14:33 → SUATTDRO 01-30 15:38
PROVIDERS: ADMIT Internal Medicine; ATTEND Internal Medicine

== ENCOUNTER 2022-01-31 07:34 | Inpatient (IN) ==
[2022-02-02] MEDS ORDERED: Magnesium Hydroxide LIQ 30 ML UDC PO PRN (17:27)
[2022-02-02] MEDS ORDERED: Dextrose 50% Syringe 50 ml 25 GM/50 ML SYRINGE IV PUSH PRN (17:39)
[2022-02-02] MEDS: Enoxaparin 40 MG/0.4 ML SYR SUBCUT SCH (20:06)
[2022-02-02] MEDS: Insulin GLARGINE 100 un/ml 10 ml VIAL SUBCUT SCH (20:07)
[2022-02-02] MEDS: Cefepime 2 GM in Dextrose 2 GM/50 ML BAG IV SCH (22:41)
[2022-02-03] MEDS: Cefepime 2 GM in Dextrose 2 GM/50 ML BAG IV SCH ×3 (06:16→22:36)
[2022-02-03 06:22] LABS: Hematocrit 27 % (35-47); Mean Corpuscular HGB Conc 33 g/dL (31-36); Mean Corpuscular Hemoglobin 30 pg (27-31); Mean Corpuscular Volume 91 fL (80-97); Mean Platelet Volume 7.8 fL (7.4-10.4); Platelet Count 470 10^3/uL (150-450); Red Blood Count 2.97 10^6 /uL (3.70-4.87); Red Cell Distribution Width 17 % (10-15); White Blood Count 6.8 10^3/uL (3.5-10.8)
[2022-02-03 06:41] LABS: Albumin 2.8 g/dL (3.2-5.2); Albumin/Globulin Ratio 0.9 (1-3); Calcium 8.8 mg/dL (8.6-10.3); Globulin 3.2 g/dL (2-4); Potassium 4.7 mmol/L (3.5-5.0); Total Bilirubin 0.3 mg/dL (0.2-1.0); eGFR CKD-EPI 50.6 (>60)
[2022-02-03 08:58] LABS: ABS Basophils 0.1 10^3/ul (0-0.2); ABS Eosinophils 0.4 10^3/ul (0-0.6); ABS Lymphocytes 1.1 10^3/ul (1.0-4.8); ABS Monocytes 1.1 10^3/ul (0-0.8); ABS Neutrophils 4.1 10^3/ul (1.5-7.7); Eosinophil % 6.6 %; Lymphocyte % 16.9 %; Nucleated Red Blood Cells % 0.1
[2022-02-03] MEDS ORDERED: Influenza vaccine *QUAD* *2022-23* 0.5 ML SYRINGE IM ONE (09:00)
[2022-02-03] MEDS: Enoxaparin 40 MG/0.4 ML SYR SUBCUT SCH (21:26)
[2022-02-03] MEDS: Insulin GLARGINE 100 un/ml 10 ml VIAL SUBCUT SCH (21:56)
[2022-02-04] MEDS: Cefepime 2 GM in Dextrose 2 GM/50 ML BAG IV SCH (05:31)
[2022-02-04] MEDS: Enoxaparin 40 MG/0.4 ML SYR SUBCUT SCH (21:13)
[2022-02-04] MEDS: Insulin GLARGINE 100 un/ml 10 ml VIAL SUBCUT SCH (22:19)
[2022-02-05] MEDS: Enoxaparin 40 MG/0.4 ML SYR SUBCUT SCH (21:09)
[2022-02-05] MEDS: Insulin GLARGINE 100 un/ml 10 ml VIAL SUBCUT SCH (21:10)
[2022-02-06] MEDS: Enoxaparin 40 MG/0.4 ML SYR SUBCUT SCH (19:55)
[2022-02-06] MEDS: Insulin GLARGINE 100 un/ml 10 ml VIAL SUBCUT SCH (20:05)
[2022-02-07] MEDS: Enoxaparin 40 MG/0.4 ML SYR SUBCUT SCH (20:09)
[2022-02-07] MEDS: Insulin GLARGINE 100 un/ml 10 ml VIAL SUBCUT SCH (20:47)
[2022-02-08] MEDS: Insulin GLARGINE 100 un/ml 10 ml VIAL SUBCUT SCH (21:14)
[2022-02-08] MEDS: buPROPion SR 100 mg TAB.SR PO SCH (21:14)
[2022-02-08] MEDS: Enoxaparin 40 MG/0.4 ML SYR SUBCUT SCH (21:15)
[2022-02-09] MEDS ORDERED: buPROPion SR 200 mg TAB.SR PO SCH (09:00)
[2022-02-09] MEDS: buPROPion SR 100 mg TAB.SR PO SCH (20:59)
[2022-02-09] MEDS: Enoxaparin 40 MG/0.4 ML SYR SUBCUT SCH (21:00)
[2022-02-09] MEDS: Insulin GLARGINE 100 un/ml 10 ml VIAL SUBCUT SCH (21:04)
[2022-02-10 06:08] LABS: Hematocrit 28 % (35-47); Hemoglobin 8.8 g/dL (12.0-16.0); Mean Corpuscular HGB Conc 31 g/dL (31-36); Mean Corpuscular Hemoglobin 28 pg (27-31); Mean Corpuscular Volume 90 fL (80-97); Mean Platelet Volume 7.2 fL (7.4-10.4); Platelet Count 320 10^3/uL (150-450); Red Blood Count 3.12 10^6 /uL (3.70-4.87); Red Cell Distribution Width 17 % (10-15); White Blood Count 8.1 10^3/uL (3.5-10.8)
[2022-02-10 06:28] LABS: ABS Basophils 0.1 10^3/ul (0-0.2); ABS Eosinophils 0.4 10^3/ul (0-0.6); ABS Lymphocytes 1.8 10^3/ul (1.0-4.8); ABS Monocytes 1.3 10^3/ul (0-0.8); ABS Neutrophils 4.6 10^3/ul (1.5-7.7); Eosinophil % 5.4 %; Lymphocyte % 21.6 %; Nucleated Red Blood Cells % 0.1
[2022-02-10 07:19] LABS: Albumin 3.1 g/dL (3.2-5.2); Albumin/Globulin Ratio 0.9 (1-3); Calcium 8.9 mg/dL (8.6-10.3); Globulin 3.4 g/dL (2-4); Potassium 4.3 mmol/L (3.5-5.0); Total Bilirubin 0.3 mg/dL (0.2-1.0); Total Protein 6.5 g/dL (6.4-8.9); eGFR CKD-EPI 59.9 (>60)
[2022-02-10] MEDS: Enoxaparin 40 MG/0.4 ML SYR SUBCUT SCH (19:44)
[2022-02-10] MEDS: Insulin GLARGINE 100 un/ml 10 ml VIAL SUBCUT SCH (20:57)
[2022-02-11] MEDS: Enoxaparin 40 MG/0.4 ML SYR SUBCUT SCH (19:51)
[2022-02-11] MEDS: Insulin GLARGINE 100 un/ml 10 ml VIAL SUBCUT SCH (19:52)
[2022-02-11] MEDS: Senna TAB 8.6 mg TAB PO PRN (20:04)
[2022-02-12] MEDS: Senna TAB 8.6 mg TAB PO PRN (20:49)
[2022-02-12] MEDS: Insulin GLARGINE 100 un/ml 10 ml VIAL SUBCUT SCH (20:51)
[2022-02-12] MEDS: Enoxaparin 40 MG/0.4 ML SYR SUBCUT SCH (20:52)
[2022-02-13] MEDS: Enoxaparin 40 MG/0.4 ML SYR SUBCUT SCH (20:52)
[2022-02-13] MEDS: Insulin GLARGINE 100 un/ml 10 ml VIAL SUBCUT SCH (20:53)
[2022-02-14 05:21] VITALS: BP 136/54
== END 2022-02-14 11:30 | disposition home health service (06) | DRG 860 ==
LOC: PMRU 02-02 14:29
PROVIDERS: ADMIT Physical Medicine & Rehabilitation; ATTEND Physical Medicine & Rehabilitation